=== PATIENT | female | born 1940 | race Caucasian/White ===

== ENCOUNTER → 2017-11-25 07:02 | Outpatient (CLI) | payer MEDICARE, BC, SELFPAY ==
[2017-11-25 07:58] LABS: Hemoglobin A1C 7.2 % (4.5-6.2)
[2017-11-25 08:42] LABS: ALT 28 U/L (12-78); AST 19 U/L (15-37); Albumin 3.5 g/dL (3.4-5.0); Alkaline Phosphatase 71 U/L (46-116); Anion Gap 7.4 mmol/L (3-11); BUN 20 mg/dL (7-18); Bilirubin, Total 0.3 mg/dL (0.2-1.0); CO2 30.6 mmol/L (21.0-32.0); CREATININE 1.23 mg/dL (0.55-1.02); Calcium 9.5 mg/dL (8.5-10.1); Chloride 102 mmol/L (98-107); Cholesterol 248 mg/dL (50-200); Estimated GFR 42.45 (mL/min/1.73m2); Glucose 120 mg/dL (70-100); HDL Cholesterol 51 mg/dL (40-60); LDL CHOLESTEROL 178 mg/dL (<100); Potassium 4.3 mmol/L (3.5-5.1); Sodium 140 mmol/L (136-145); Triglyceride 229 mg/dL (30-150)
[2017-11-25 09:02] LABS: Total Protein 6.7 g/dL (6.4-8.2)
== END ==
PROVIDERS: PCP Nurse Practitioner; Visit Provider Nurse Practitioner
DX: I10 Essential (primary) hypertension (principal); R73.01 Impaired fasting glucose; Z13.220 Encounter for screening for lipoid disorders
CPT/HCPCS: 36415; 80053; 80061; 83721; 83036

== ENCOUNTER 2018-11-19 07:49 | Outpatient (CLI) | payer MEDICARE, BC, SELFPAY ==
[2018-11-19 08:32] LABS: HCT 31.2 % (36.0-46.0); HGB 9.8 g/dL (12.0-15.5); Mean Corp. HGB Concentration 31.4 g/dL (32.0-36.0); Mean Corpuscular Hemoglobin 28.4 pg (27.0-33.0); Mean Corpuscular Volume 90.4 fL (80-95); Mean Platelet Volume 9.3 fL (8.0-11.0); Platelet Count 397 x1000/uL (130-400); RBC 3.45 m/cumm (4.00-5.20); White Blood Cell Count 4.03 k/cumm (4.4-10.8)
[2018-11-19 10:12] LABS: ALT 22 U/L (12-78); AST 23 U/L (15-37); Albumin 3.4 g/dL (3.4-5.0); Alkaline Phosphatase 61 U/L (46-116); Anion Gap 9.6 mmol/L (3-11); BUN 14 mg/dL (7-18); Bilirubin, Total 0.2 mg/dL (0.2-1.0); CO2 26.4 mmol/L (21.0-32.0); CREATININE 1.16 mg/dL (0.55-1.02); Calcium 9.5 mg/dL (8.5-10.1); Calculated LDL 147 mg/dL; Chloride 102 mmol/L (98-107); Cholesterol 234 mg/dL (50-200); Glucose 137 mg/dL (70-100); HDL Cholesterol 50 mg/dL (40-60); Potassium 4.5 mmol/L (3.5-5.1); Sodium 138 mmol/L (136-145); Total Protein 6.4 g/dL (6.4-8.2); Triglyceride 188 mg/dL (30-150)
[2018-11-19 10:19] LABS: COMMENT (LAB VIEW ONLY) 63.23 mg/dL; Microalb ug/mg Crea 7.1 ug/mg Cr
== END 2018-11-19 08:09 ==
PROVIDERS: PCP Nurse Practitioner; Visit Provider Nurse Practitioner
DX: E11.9 Type 2 diabetes mellitus without complications (principal); E78.5 Hyperlipidemia, unspecified; N18.3 Chronic kidney disease, stage 3 (moderate)
CPT/HCPCS: 36415; 80053; 80061; 83721; 85027; 82043; 82570

== ENCOUNTER 2020-06-01 03:28 | Outpatient (CLI) | payer MEDICARE, BC, SELFPAY ==
[2020-06-01 10:11] LABS: HCT 28.5 % (36.0-46.0); HGB 8.6 g/dL (11.2-15.7); MCH 24.8 pg (27.0-33.0); MCHC 30.2 % (32.0-36.0); MCV 82.1 fL (80-95); MPV 9.2 fL (8.0-11.0); Platelet Count 444 10^3/uL (130-400); RBC 3.47 10^6/uL (3.93-5.22); RDW 13.6 % (11.7-14.6); RDW-SD 40.8 fL
[2020-06-01 10:58] LABS: ALT 33 U/L (14-59); AST 30 U/L (15-37); Albumin 3.3 g/dL (3.4-5.0); Alkaline Phosphatase 68 U/L (46-116); Anion Gap 10.3 mmol/L (3-11); BUN 19 mg/dL (7-18); Bilirubin, Total 0.3 mg/dL (0.2-1.0); CO2 26.7 mmol/L (21.0-32.0); COMMENT (LAB VIEW ONLY) 112.92 mg/dL; CREATININE 1.1 mg/dL (0.55-1.02); Calcium 9.7 mg/dL (8.5-10.1); Calculated LDL 128 mg/dL (<100); Chloride 100 mmol/L (98-107); Cholesterol 213 mg/dL (<200); Estimated GFR 47.91 (mL/min/1.73m2); Glucose 154 mg/dL (74-106); HDL Cholesterol 48 mg/dL (40-60); Potassium 4.7 mmol/L (3.5-5.1); Sodium 137 mmol/L (136-145); Total Protein 6.8 g/dL (6.4-8.2); Triglyceride 189 mg/dL (<150)
== END 2020-06-01 03:29 | disposition home or self-care (01) ==
LOC: LBO 03:28
PROVIDERS: PCP Nurse Practitioner; Visit Provider Nurse Practitioner
DX: I10 Essential (primary) hypertension (principal); E11.9 Type 2 diabetes mellitus without complications; N18.30 Chronic kidney disease, stage 3 unspecified
CPT/HCPCS: 36415; 80053; 80061; 85027; 82043; 82570

== ENCOUNTER 2020-09-28 03:01 | Outpatient (CLI) | payer MEDICARE, BC, SELFPAY ==
--- NOTE | 2020-09-28 09:30 | DI.DEXA_ITS ---
Exam(s) XR DEXA BONE DENSITY W/WO ALEIDA EXAM: XR DEXA BONE DENSITY W/WO ALEIDA CLINICAL HISTORY: SCREENING FOR OSTEOPOROSIS IN POSTMENOPAUSAL WOMAN,Z78.0,Z13.820 TECHNIQUE: Routine DEXA evaluation of the lumbar spine, hip, or forearm. COMPARISON: Prior DEXA scan 2007 FINDINGS: Performed on a Inxero unit. Lateral image: No compression fracture evident. Lumbar Spine total T-score: -0.4 . Prior 2008 reading was -0.7 Hip total T-score:-0.7 . Prior 2008 reading was -0.6 Independent reading at the femoral neck yields a T-score of -1.1 Forearm total T-score: -2.1 IMPRESSION: Bone mineral density measures in the osteopenia range. Fracture risk is moderate. Note: Any spine fracture indicates 5x risk for subsequent spine fracture and 2x risk for subsequent h ip fracture. World Health Organization criteria for BMD interpretation classify patients: Normal...... T- Score at or above -1.0 Osteopenic... T- Score between -1.0 and -2.5 Osteoporosis... T-Score at or below -2.5
== END 2020-09-28 03:21 ==
PROVIDERS: PCP Nurse Practitioner; Visit Provider Nurse Practitioner
DX: Z13.820 Encounter for screening for osteoporosis (principal); R93.7 Abnormal findings on diagnostic imaging of other parts of musculoskeletal system; Z78.0 Asymptomatic menopausal state
CPT/HCPCS: 77080

== ENCOUNTER 2021-02-15 16:55 | Outpatient (REF) | payer MEDICARE, BC, SELFPAY ==
[2021-02-17 18:23] LABS: COVID-19 RT-PCR UVMMC Result Negative (Negative)
== END 2021-02-15 16:56 | disposition home or self-care (01) ==
LOC: LBN 16:55
PROVIDERS: Student in an Organized Health Care Education/Training Program; PCP Nurse Practitioner; Visit Provider Nurse Practitioner
DX: Z20.822 Contact with and (suspected) exposure to COVID-19 (principal); J32.9 Chronic sinusitis, unspecified; R09.81 Nasal congestion
CPT/HCPCS: U0003

== ENCOUNTER 2021-12-20 04:09 | Outpatient (CLI) | payer MEDICARE, BC, SELFPAY ==
[2021-12-20 08:14] LABS: Abs Immature Grans 0.02 10^3/uL (0.0-0.06); Absolute Basophil Count 0.07 10^3/uL (0.0-0.2); Absolute Eosinophil Count 0.38 10^3/uL (0.0-0.7); Absolute Lymphocyte Count 0.84 10^3/uL (1.2-3.4); Absolute Monocyte Count 0.54 10^3/uL (0.1-0.8); Absolute Neutrophil Count 4.31 10^3/uL (1.2-6.7); Basophils % 1.1; Eosinophils % 6.2; HCT 31.4 % (36.0-46.0); Immature Grans % 0.3; Lymphocytes % 13.6; MCH 30.9 pg (27.0-33.0); MCHC 31.8 % (32.0-36.0); MCV 97 fL (80-95); MPV 9.8 fL (8.0-11.0); Monocytes % 8.8; Platelet Count 453 10^3/uL (130-400); RBC 3.24 10^6/uL (3.93-5.22); RDW 12.6 % (11.7-14.6); RDW-SD 44.9 fL; WBC 6.16 10^3/uL (4.4-10.8)
[2021-12-20 09:12] LABS: ALT 24 U/L (14-59); AST 19 U/L (15-37); Albumin 3.2 g/dL (3.4-5.0); Alkaline Phosphatase 59 U/L (46-116); Anion Gap 8.2 mmol/L (3-11); BUN 19 mg/dL (7-18); Bilirubin, Total 0.2 mg/dL (0.2-1.0); CO2 28.8 mmol/L (21.0-32.0); CREATININE 1.2 mg/dL (0.55-1.02); Calcium 9.6 mg/dL (8.5-10.1); Calculated LDL 132 mg/dL (<100); Chloride 105 mmol/L (98-107); Cholesterol 222 mg/dL (<200); Estimated GFR 45.76 (mL/min/1.73m2); Glucose 133 mg/dL (74-106); HDL Cholesterol 58 mg/dL (40-60); Potassium 4.6 mmol/L (3.5-5.1); Sodium 142 mmol/L (136-145); Total Protein 6.7 g/dL (6.4-8.2); Triglyceride 163 mg/dL (<150)
== END 2021-12-20 04:10 | disposition home or self-care (01) ==
LOC: LBO 04:09
PROVIDERS: PCP Nurse Practitioner; Visit Provider Nurse Practitioner
DX: D64.9 Anemia, unspecified (principal); E78.5 Hyperlipidemia, unspecified; I10 Essential (primary) hypertension; J45.909 Unspecified asthma, uncomplicated; E11.9 Type 2 diabetes mellitus without complications
CPT/HCPCS: 36415; 80053; 80061; 85025

== ENCOUNTER 2022-07-04 02:29 | Outpatient (CLI) | payer MEDICARE, BC, SELFPAY ==
[2022-07-04 09:44] LABS: Abs Immature Grans 0.02 10^3/uL (0.0-0.06); Absolute Basophil Count 0.04 10^3/uL (0.0-0.2); Absolute Eosinophil Count 0.24 10^3/uL (0.0-0.7); Absolute Lymphocyte Count 1.11 10^3/uL (1.2-3.4); Absolute Monocyte Count 0.52 10^3/uL (0.1-0.8); Absolute Neutrophil Count 4.82 10^3/uL (1.2-6.7); Basophils % 0.6; Eosinophils % 3.6; HCT 35.2 % (36.0-46.0); HGB 11.3 g/dL (11.2-15.7); Immature Grans % 0.3; Lymphocytes % 16.4; MCH 30.9 pg (27.0-33.0); MCHC 32.1 % (32.0-36.0); MCV 96 fL (80-95); MPV 10.2 fL (8.0-11.0); Monocytes % 7.7; Neutrophils % 71.4; Platelet Count 355 10^3/uL (130-400); RBC 3.66 10^6/uL (3.93-5.22); RDW-SD 42.7 fL; WBC 6.75 10^3/uL (4.4-10.8)
[2022-07-04 10:09] LABS: COMMENT (LAB VIEW ONLY) 181.77 mg/dL; Microalb ug/mg Crea 25.3 ug/mg Cr
[2022-07-04 10:13] LABS: Hemoglobin A1C 6.3 % (<5.7)
[2022-07-04 10:24] LABS: ALT 23 U/L (14-59); AST 22 U/L (15-37); Albumin 3.5 g/dL (3.4-5.0); Alkaline Phosphatase 59 U/L (46-116); Anion Gap 10.2 mmol/L (3-11); BUN 28 mg/dL (7-18); Bilirubin, Total 0.2 mg/dL (0.2-1.0); CO2 26.8 mmol/L (21.0-32.0); CREATININE 1.3 mg/dL (0.55-1.02); Calcium 9.5 mg/dL (8.5-10.1); Calculated LDL 138 mg/dL (<100); Chloride 105 mmol/L (98-107); Cholesterol 222 mg/dL (<200); Estimated GFR 41.31 (mL/min/1.73m2); Ferritin 29 ng/mL (8-252); Glucose 138 mg/dL (74-106); HDL Cholesterol 59 mg/dL (40-60); Potassium 4.1 mmol/L (3.5-5.1); Sodium 142 mmol/L (136-145); Total Protein 6.8 g/dL (6.4-8.2); Triglyceride 129 mg/dL (<150)
== END 2022-07-04 02:30 | disposition home or self-care (01) ==
LOC: LBO 02:29
PROVIDERS: PCP Nurse Practitioner; Referring Provider Nurse Practitioner; Visit Provider Nurse Practitioner
DX: D64.9 Anemia, unspecified (principal); E11.9 Type 2 diabetes mellitus without complications; I10 Essential (primary) hypertension; J45.909 Unspecified asthma, uncomplicated
CPT/HCPCS: 36415; 80053; 80061; 82043; 82570; 82728; 83036; 85025

== ENCOUNTER 2022-11-14 18:59 | Emergency (ER) | payer MEDICARE, BC, SELFPAY ==
--- NOTE | 2022-11-14 19:00 | RT.EKG_ITS ---
APPROVED REPORT Exam: Resting ECG Reason for Exam: chest pain Patient Location: E HR:108 bpm ECG Measurements Heart Rate 108 AXIS NV 160 P 52 QRSd 136 QRS 33 QT 354 T -11 QTc 473 Conclusion Sinus tachycardia...rate> 99 Atrial premature complexes...SV complexes w/ short R-R intvls Right bundle branch block...QRSd>120, terminal axis(90,270) Physician: no stemi, RBBB
[2022-11-14 19:01] VITALS: BP 146/89; PULSE 119; RESP 18; TEMP 37.5; O2SAT 98
--- NOTE | 2022-11-14 19:22 | DI.CT_ITS ---
Exam(s) CT ABDOMEN PELVIS WO EXAM: CT ABDOMEN PELVIS WO CLINICAL HISTORY: lower abd pain. TECHNIQUE: Imaging Protocol: Axial computed tomography images with coronal and sagittal reformatted images were created and reviewed. Oral: / no COMPARISON: CT CHEST WITHOUT CONTRAST from 07/07/2012 FINDINGS: Exam limited by motion. ABDOMEN: Lung Bases: Large hiatal hernia. Evaluation of the lungs limited by respiratory motion. Liver: Normal density. Liver cysts, unchanged. No suspicious mass. Gallbladder and biliary tract: No radiodense calculus or dilation. Pancreas: Normal density, no abnormal calcifications or inflammatory process. Spleen: Normal. Kidneys: Normal size, contour and axis. No radiodense stones or obstructive uropathy. No masses seen. Adrenal glands: No masses seen. Lymph nodes: Within normal limits. Abdominal Aorta: Abdominal portion non-dilated. Atherosclerotic changes. PELVIS: Bladder: Symmetric distention, no gross wall thickening. Bowel: No obstruction. Prominent sigmoid diverticulosis. Surrounding inflammation in the distal sig moid and mild amount of surrounding fluid. No abscess. Appendix normal. Moderate quantity of stool . Peritoneal cavity: No ascites, collection or mesenteric inflammatory response. Reproductive organs: Retroverted uterus. Right-sided exophytic fundal fibroid. Within normal limits . Bones: Degenerative changes in the spine and hips. No compression fractures. IMPRESSION: Mild sigmoid diverticulitis. Small amount of adjacent fluid. RADIATION DOSE DELIVERED: 689.12mGy.cm Total DLP DATA REPOSITORY: All CT scans at this facility are submitted to the National Radiology Data Registry (NRDR) Dose Index Registry (DIR) with the [employer] (A[employer]). RADIATION OPTIMIZATION: All CT scans at this facility use at least one of these dose optimization te chniques: automated exposure control; mA and/or kV adjustment per patient size (includes targeted exa ms where dose is matched to clinical indication); or iterative reconstruction.
--- NOTE | 2022-11-14 19:26 | ED.GENADUL_ITS ---
Discharge Plan Disposition Patient Disposition: Home Condition: Stable Discharge Details Clinical Impression: Diverticulitis Primary Care Provider: Lalitha Daniels ED Provider: Christi Page Home Meds and New Rx's Prescriptions: New amoxicillin-pot clavulanate 875-125 mg tablet 1 tab PO TID Qty: 20 0RF Continued fluticasone propionate 50 mcg/actuation spray,suspension 2 spray intranasal DAILY Qty: 16 3RF Patient Comments: not using per pt Aveeno Moisturizing 1 % cream 1 applic topical TID PRN Qty: 206 3RF lisinopril-hydrochlorothiazide 20-12.5 mg tablet 1 tab PO DAILY Qty: 90 3RF Rx Instructions: TO CONTROL BP <130/80 acetaminophen 500 MG tablet 2 tab PO PRN PRN ascorbic acid (vitamin C) [Vitamin C] 500 MG tablet 500 mg PO BID Qty: 200 Rx Instructions: take with iron tablets to enhance absorption ferrous gluconate [Ferate] 240 mg (27 mg iron) tablet 240 mg PO DAILY Qty: 180 3RF Discharge Instructions Instructions: Diverticulitis (ED) Additional Instructions: It's a good idea to eat a lot of fiber?after?your symptoms have gotten better. Good sources of fiber include fruits, oats, beans, peas, and green leafy vegetables. You do?not?need to avoid seeds, nuts, popcorn, or other similar foods. You will be referred to surgery and after your infection has been treated, your doctor might recommend that you have a procedure called a colonoscopy clear liquids to stay well hydrated, advance as tolerated. Referrals: Graciela Hdz DO [OSTEOPATHIC DOCTOR] - Lalitha Daniels NP [Primary Care Provider] - Discharge Data Discharge Date/Time-TO BE ENTERED AT DEPARTURE: 11/14/22 21:47 Medical Decision Making 82-year-old female presents with lower abdominal pain has been experiencing some constipation she has a history of hypertension. Physical exam with tenderness on palpation especially on the left lower quadrant. Will obtain IV access give her 1 L of fluids routine labs including CBC CMP urinalysis will be obtained. I will also order CAT scan of the abdomen and pelvis with IV contrast she will continue to be hemodynamically monitored while awaiting studies. Medical Records Medical records reviewed: Yes I reviewed the patient's medical records. Lab Data Lab results reviewed: Yes I reviewed the patient's lab results. HPI General Mode of arrival: ambulatory . Date/Time Provider Initiated Documentation: 11/14/22 19:11 . Limitations to Documentation: no limitations . Information obtained by: patient . HPI Narrative: onset of lower abd pain today around 11:30 am, no nausea, has c/o constipation, took laxatives last night and prune juice today. 2 small hard stools, has hemorrhoids. no fever, no similar symptoms in the past. denies chest pain, shortness of breath or other symptoms Related Data Home Medications Medication Instructions Recorded Confirmed acetaminophen 500 mg tablet 2 tab PO PRN PRN 06/30/12 11/14/22 ascorbic acid (vitamin C) 500 mg 500 mg PO BID #200 tabs 06/20/15 11/14/22 tablet (Vitamin C) fluticasone propionate 50 2 spray intranasal DAILY #16 grams 02/15/21 11/14/22 mcg/actuation nasal spray,suspension colloidal oatmeal 1 % topical 1 applic topical TID PRN #206 grams 05/22/22 11/14/22 cream (Aveeno Moisturizing) lisinopril 20 1 tab PO DAILY #90 tabs 05/22/22 11/14/22 mg-hydrochlorothiazide 12.5 mg tablet ferrous gluconate 240 mg (27 mg 240 mg PO DAILY #180 tab-caps 09/30/22 11/14/22 iron) tablet (Ferate) amoxicillin 875 mg-potassium 1 tab PO TID #20 tabs 11/14/22 clavulanate 125 mg tablet Previous Rx's Medication Instructions Recorded fluticasone propionate 50 2 spray intranasal DAILY #16 grams 02/15/21 mcg/actuation nasal spray,suspension colloidal oatmeal 1 % topical 1 applic topical TID PRN #206 grams 05/22/22 cream (Aveeno Moisturizing) lisinopril 20 1 tab PO DAILY #90 tabs 05/22/22 mg-hydrochlorothiazide 12.5 mg tablet ferrous gluconate 240 mg (27 mg 240 mg PO DAILY #180 tab-caps 09/30/22 iron) tablet (Ferate) amoxicillin 875 mg-potassium 1 tab PO TID #20 tabs 11/14/22 clavulanate 125 mg tablet Allergies Allergy/AdvReac Type Severity Reaction Status Date / Time ranitidine AdvReac Intermediate Stomach Verified 11/14/22 19:05 trouble 05/16 TRIAL General Stated Complaint: Abd Prob SAEED: 3 Review of Systems All systems reviewed & are unremarkable except as noted in HPI and below PFSH All Active Problems (Updated 11/14/22 @ 21:13 by Christi Page NP) Diverticulitis (Chronic) Hx: recurrent pneumonia (Acute) Wheeze (Acute) Iron deficiency anemia (Acute 04/07/05) esophagitis/excedrin EGD 2005, 2006 INDEFINITE RX PPI; HEALED 2008; COLON 2005; persists 09/16, RESPONDS TO FE; Hb 7.0 not on Fe 07/2014 Anemia (Chronic) Anemia of chronic disorder (Acute 09/04/10) LOW EPO LEVEL 08/2010; mild CKD eGFR 44 Screening for osteoporosis (Acute) Post-menopausal (Acute) Allergic rhinitis (Acute 09/05/11) AM RHINORRHEA, CLOTRIMETON Type 2 diabetes mellitus without complication, without long-term current use of insulin (Acute 11/25/17) Esophagitis (Acute 10/05/05) FE DEF, EGD POS 12/11, 01/11, NEG 05/16 BUT STILL CHRONIC GASTRITIS, H PYLORI NEG; EGD KARTHIK; HEALED 2008; REC INDEFINITE PPI; 2005; recur anemia; 07/2014, H Pylori ab neg; EGD 05/2015 Castillo's metaplasia, 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 RML LESION; CT 07/07/12 ? SAME Medical History (Updated 11/14/22 @ 21:13 by Christi Page NP) Family history of ischemic heart disease (09/05/11) Family History Sister , age 70, non-hodgkins lymphoma Lymphoma Sister Hyperlipidemia Brother Heart disease Brother Heart disease Brother Heart disease cardiac stents Social History Smoking/Tobacco Use Status: Never Smoking risk assessment performed?: Yes Alcohol Intake: current Alcohol Intake frequency: holidays/special occasions only Drug use: Never Substance use type: does not use Housing: house Number of Children: 0 current occupation: retired What type of physical activity do you participate in: none Seatbelt use: always Drive intox or ride w/intox trailer driver: No Working smoke detector in home: Yes Fire extinguisher in home: No Carbon monox detector in home: No Do you feel safe at home: Yes Do you feel safe in your relationship?: Yes Exam Const General: cooperative, healthy appearing (younger than stated age), comfortable, no acute distress and not ill appearing Nutritional Appearance: average body habitus Orientation: alert, awake and oriented x3 HENWI Head: normal to inspection, normocephalic and atraumatic Mouth: oral mucosae normal Chest Chest: normal inspection of the chest Resp Effort & Inspection: normal respiratory effort Auscultation: clear to auscultation bilaterally Cardio Rate: tachycardic Rhythm: abnormal rhythm GI Inspection: distended Palpation: not firm, no guarding, tender and No ascites Auscultation: normal bowel sounds Skin General skin exam: no rashes or lesions noted Neuro General: patient alert, patient awake and patient oriented x3 Cognition: normal cognition Speech: speech normal Motor: muscle tone normal throughout Extrem General: normal to inspection, full ROM and no pedal edema Course Vital Signs Vital signs: Vital Signs Temperature 37.5 C 11/14/22 19:01 Pulse 119 H 11/14/22 19:01 Respiratory Rate 18 11/14/22 19:01 Blood Pressure 146/89 H 11/14/22 19:01 Pulse Oximetry 98 11/14/22 19:01 Temperature 37.5 C 11/14/22 19:01 Temperature Source Skin 11/14/22 19:01 Pulse 119 H 11/14/22 19:01 Respiratory Rate 18 11/14/22 19:01 Respiratory Effort Normal, Non-Labored 11/14/22 19:12 Blood Pressure 146/89 H 11/14/22 19:01 Blood Pressure Position Sitting 11/14/22 19:01 Pulse Oximetry 98 11/14/22 19:01 Oxygen Delivery Method Room Air 11/14/22 19:01 Oxygen Flow Rate 0 11/14/22 19:01 Pain Level 7 11/14/22 19:12
[2022-11-14 19:32] LABS: Abs Immature Grans 0.04 10^3/uL (0.0-0.06); Absolute Eosinophil Count 0.03 10^3/uL (0.0-0.7); Basophils % 0.3; Eosinophils % 0.2; HCT 32.1 % (36.0-46.0); HGB 10.7 g/dL (11.2-15.7); Immature Grans % 0.3; Lymphocytes % 4.7; MCH 29.9 pg (27.0-33.0); MCHC 33.3 % (32.0-36.0); MCV 90 fL (80-95); MPV 10.1 fL (8.0-11.0); Monocytes % 4.5; Platelet Count 369 10^3/uL (130-400); RBC 3.58 10^6/uL (3.93-5.22); RDW 11.4 % (11.7-14.6); RDW-SD 37.3 fL; WBC 14.99 10^3/uL (4.4-10.8)
[2022-11-14 19:35] LABS: Absolute Basophil Count 0.04 10^3/uL (0.0-0.2); Absolute Monocyte Count 0.67 10^3/uL (0.1-0.8); Absolute Neutrophil Count 13.49 10^3/uL (1.2-6.7)
[2022-11-14 19:45] LABS: Lipase 52 U/L (16-77)
[2022-11-14] MEDS: Normal Saline 1,000 ML 1000 ML IV (19:45)
[2022-11-14 19:49] LABS: ALT 17 U/L (14-59); AST 18 U/L (15-37); Albumin 3.6 g/dL (3.4-5.0); Alkaline Phosphatase 65 U/L (46-116); Anion Gap 12.8 mmol/L (3-11); BUN 36 mg/dL (7-18); Bilirubin, Total 0.3 mg/dL (0.2-1.0); CO2 24.2 mmol/L (21.0-32.0); CREATININE 1.5 mg/dL (0.55-1.02); Calcium 10.2 mg/dL (8.5-10.1); Chloride 100 mmol/L (98-107); Estimated GFR 34.79 (mL/min/1.73m2); Glucose 168 mg/dL (74-106); Potassium 4.5 mmol/L (3.5-5.1); Sodium 137 mmol/L (136-145)
[2022-11-14 19:56] LABS: Bacteria Few HPF (Negative); Bilirubin Negative (Negative); Blood Small (Negative); C & S Indicated? No/Sq. Contamination; Casts Negative LPF (Negative); Clarity Clear (Clear); Crystals Negative HPF (Negative); Epithelial Cells Moderate HPF (Negative); Glucose Negative (Negative); Ketones Trace mg/dL (Negative); Leukocyte Esterase Large (Negative); Mucus Negative (Negative); Nitrite Negative (Negative); RBC 0-2 HPF (0-2); Specific Gravity 1.025 (1.005-1.025); Urobilinogen 0.2 mg/dL (Up to 0.2); pH 5.5 (5-8)
--- NOTE | 2022-11-14 20:35 | DI.VRAD_ITS ---
PROCEDURE INFORMATION: Exam: CT Abdomen And Pelvis Without Contrast Exam date and time: 11/14/2022 8:10 PM Age: 82 years old Clinical indication: Abdominal pain; Localized; Lower; Additional info: Lower abd pain TECHNIQUE: Imaging protocol: Computed tomography of the abdomen and pelvis without contrast. Radiation optimization: All CT scans at this facility use at least one of these dose optimization techniques: automated exposure control; mA and/or kV adjustment per patient size (includes targeted exams where dose is matched to clinical indication); or iterative reconstruction. COMPARISON: No relevant prior studies available. FINDINGS: Diaphragm: There is a large hiatal hernia, incompletely imaged. Liver: There is a slightly mixed attenuation low-density right lobe hepatic mass measuring 3.4 cm. Gallbladder and bile ducts: Normal. No calcified stones. No ductal dilation. Pancreas: Normal. No ductal dilation. Spleen: Normal. No splenomegaly. Adrenal glands: Normal. No mass. Kidneys and ureters: Normal. No hydronephrosis. Stomach and bowel: There is moderate fecal retention pattern particularly at the rectosigmoid level. There is extensive diverticulosis. There is some mild abnormal soft tissue stranding at the distal sigmoid colonic level near the rectosigmoid junction. Appendix: No evidence of appendicitis. Intraperitoneal space: There is a small amount of free fluid in the deep pelvis. Vasculature: Severe atherosclerotic change present in the vasculature. Lymph nodes: Unremarkable. No enlarged lymph nodes. Urinary bladder: Unremarkable as visualized. Reproductive: There is an exophytic partially calcified right uterine fundal mass, presumed old fibroid. Bones/joints: Unremarkable. No acute fracture. Soft tissues: Unremarkable. IMPRESSION: Concern for early, acute diverticulitis. Minimal free fluid noted. Dictated and Authenticated by: Kizzy Fisher MD. Ordering:BRITTA Barraza MD
[2022-11-14] MEDS: PIPERACILLIN/TAZO 3.375 GM in Normal Saline 50 ML IVPB (20:57)
[2022-11-14 21:35] VITALS: BP 101/64; PULSE 89; RESP 16; TEMP 37.1; O2SAT 99
[2022-11-14] MEDS: Amox. 875/Clav. 125, 2 TABS/BTL 1 TAB PO (21:41)
== END 2022-11-14 21:47 | disposition home or self-care (01) ==
PROVIDERS: Emergency Provider Nurse Practitioner Acute Care; PCP Nurse Practitioner
DX: K57.32 Diverticulitis of large intestine without perforation or abscess without bleeding (principal); I45.19 Other right bundle-branch block; K44.9 Diaphragmatic hernia without obstruction or gangrene; I12.9 Hypertensive chronic kidney disease with stage 1 through stage 4 chronic kidney disease, or unspecified chronic kidney disease; E11.22 Type 2 diabetes mellitus with diabetic chronic kidney disease; N18.30 Chronic kidney disease, stage 3 unspecified; Z79.84 Long term (current) use of oral hypoglycemic drugs; Z79.899 Other long term (current) drug therapy
CPT/HCPCS: 80053; 83690; 93005; 96361; 96365; 99284; 74176; 81003; 81015; 85025; 93010; J2543

== ENCOUNTER 2023-03-24 12:04 | Outpatient (CLI) | payer MEDICARE, BC, SELFPAY ==
--- NOTE | 2023-03-24 11:40 | DI.RAD_ITS ---
Exam(s) XR HIP RT COMPLETE AP PELVIS EXAM: XR HIP RT COMPLETE AP PELVIS CLINICAL HISTORY: right hip pain. TECHNIQUE: 2D digital imaging was performed of the right hip. Two images were obtained. AP pelvis a nd lateral right hip views were obtained. COMPARISON: No exams were available for comparison FINDINGS: BONES: No acute fracture is present. No bony destructive lesion is seen. JOINTS: No dislocation present. There are marked degenerative changes seen in the right hip with loss of the joint space and osteophytes present. Subchondral sclerosis is seen. Marked degenerative tangela nges are also seen in the left hip. Sacroiliac joints show mild degenerative changes. SOFT TISSUE: Normal. IMPRESSION: Marked osteoarthritis of the right hip. DATA REPOSITORY: RADIATION DOSE DELIVERED:
== END 2023-03-24 12:05 | disposition home or self-care (01) ==
LOC: DIORS 12:05
PROVIDERS: PCP Nurse Practitioner; Referring Provider Nurse Practitioner; Visit Provider Physician Assistant
DX: M16.11 Unilateral primary osteoarthritis, right hip (principal)
CPT/HCPCS: 99213; 73502

== ENCOUNTER 2023-04-02 01:41 | Outpatient (CLI) | payer MEDICARE, BC, SELFPAY ==
[2023-04-02 13:23] LABS: Abs Immature Grans 0.02 10^3/uL (0.0-0.06); Absolute Basophil Count 0.06 10^3/uL (0.0-0.2); Absolute Eosinophil Count 0.25 10^3/uL (0.0-0.7); Absolute Monocyte Count 0.59 10^3/uL (0.1-0.8); Basophils % 0.9; Eosinophils % 3.8; HCT 24.8 % (36.0-46.0); HGB 7.1 g/dL (11.2-15.7); Immature Grans % 0.3; Lymphocytes % 16.6; MCH 22.3 pg (27.0-33.0); MCHC 28.6 % (32.0-36.0); MCV 78 fL (80-95); MPV 9.9 fL (8.0-11.0); Monocytes % 8.9; Neutrophils % 69.5; Platelet Count 500 10^3/uL (130-400); RBC 3.18 10^6/uL (3.93-5.22); RDW 14.8 % (11.7-14.6); WBC 6.62 10^3/uL (4.4-10.8)
[2023-04-02 13:43] LABS: Anion Gap 8.9 mmol/L (3-11); BUN 33 mg/dL (7-18); CO2 26.1 mmol/L (21.0-32.0); CREATININE 1.3 mg/dL (0.55-1.02); Calcium 10.3 mg/dL (8.5-10.1); Chloride 106 mmol/L (98-107); Estimated GFR 41.06 (mL/min/1.73m2); Glucose 112 mg/dL (74-106); Potassium 4.6 mmol/L (3.5-5.1); Sodium 141 mmol/L (136-145)
== END 2023-04-02 01:42 | disposition home or self-care (01) ==
LOC: LBO 01:42
PROVIDERS: PCP Nurse Practitioner; Referring Provider Nurse Practitioner; Visit Provider Nurse Practitioner
DX: N18.30 Chronic kidney disease, stage 3 unspecified (principal); D64.9 Anemia, unspecified
CPT/HCPCS: 36415; 80048; 85025

== ENCOUNTER 2023-04-21 09:35 | Outpatient (REF) | payer MEDICARE, BC, SELFPAY ==
[2023-04-21 15:12] LABS: Abs Immature Grans 0.02 10^3/uL (0.0-0.06); Absolute Basophil Count 0.05 10^3/uL (0.0-0.2); Absolute Eosinophil Count 0.18 10^3/uL (0.0-0.7); Absolute Lymphocyte Count 0.51 10^3/uL (1.2-3.4); Absolute Monocyte Count 0.41 10^3/uL (0.1-0.8); Absolute Neutrophil Count 4.21 10^3/uL (1.2-6.7); Basophils % 0.9; Eosinophils % 3.3; HCT 26.1 % (36.0-46.0); HGB 7.4 g/dL (11.2-15.7); Immature Grans % 0.4; Lymphocytes % 9.5; MCH 23.3 pg (27.0-33.0); MCHC 28.4 % (32.0-36.0); MCV 82 fL (80-95); MPV 10.6 fL (8.0-11.0); Monocytes % 7.6; Neutrophils % 78.3; Platelet Count 482 10^3/uL (130-400); RBC 3.17 10^6/uL (3.93-5.22); RDW 20.2 % (11.7-14.6); RDW-SD 58.9 fL; WBC 5.38 10^3/uL (4.4-10.8)
[2023-04-21 15:33] LABS: Anisocytosis 2+; Diff Comment RBC Morph Reviewed
[2023-04-21 15:34] LABS: Hypochromasia 1+; Poikilocytes 1+
[2023-04-21 15:40] LABS: Ferritin 52 ng/mL (8-252)
[2023-04-21 16:58] LABS: Total Iron Binding Capacity 390 ug/dL (250-450)
== END 2023-04-21 09:36 | disposition home or self-care (01) ==
LOC: LBN 09:35
PROVIDERS: PCP Nurse Practitioner; Visit Provider Nurse Practitioner Adult Health
DX: D64.9 Anemia, unspecified (principal); J45.909 Unspecified asthma, uncomplicated
CPT/HCPCS: 82728; 83550; 85025

== ENCOUNTER 2023-07-28 10:21 | Emergency (ER) | payer MEDICARE, BC, SELFPAY ==
[2023-07-28 10:26] VITALS: BP 174/93; PULSE 88; RESP 16; TEMP 37.1; O2SAT 100
--- NOTE | 2023-07-28 10:35 | W.ED.GENAD ---
Discharge Plan Disposition Patient Disposition: Home Condition: Stable Discharge Details Clinical Impression: Diabetic foot ulcer, Bunion of great toe of left foot, Arthritis of right knee Primary Care Provider: Lalitha Daniels ED Provider: Vadim Barraza Home Meds and New Rx's Prescriptions: Continued celecoxib [Celebrex] 100 mg capsule 100 mg PO DAILY Qty: 90 0RF Rx Instructions: take with food lisinopril-hydrochlorothiazide 20-12.5 mg tablet 1 tab PO DAILY Qty: 90 3RF Rx Instructions: TO CONTROL BP <130/80 Aveeno Moisturizing 1 % cream 1 applic topical TID PRN Qty: 206 3RF acetaminophen 500 MG tablet 2 tab PO PRN PRN ascorbic acid (vitamin C) [Vitamin C] 500 MG tablet 500 mg PO BID Qty: 200 Rx Instructions: take with iron tablets to enhance absorption ferrous gluconate [Ferate] 240 mg (27 mg iron) tablet 240 mg PO DAILY Qty: 180 3RF Discharge Instructions Instructions: Mupirocin (On the skin), Bunion (ED), Foot Care for People with Diabetes (ED), Diabetic Foot Ulcers (ED), Arthritis (ED) Additional Instructions: You were seen in the emergency department for the 2 different wounds of your left foot, the medial wound at the base of your big toe is a bunion. It does not appear infected. The wound by your pinky toe appears to be a diabetic foot ulceration. We took a culture of this wound and sent it to the lab, this should return within about 48 hours and if positive for bacteria somebody will contact you and start you on antibiotics, I do not think antibiotics are warranted at this time, we did provide you with a topical prescription strength antibiotic here in the emergency department to perform generalized wound care. Please follow-up with podiatry, we do not have wound care at this hospital but you may talk to your primary care provider about trying to get in with a wound care clinic for likely future foot ulcerations. The x-ray of your right knee shows arthritis of the right knee. The x-ray of your left foot showed no bone involvement from infection which is a complication of diabetic foot wound sometimes. Please follow-up with your primary care provider for these issues, please return to the ED for any severe increase in pain, drainage of pus from the area, unilateral leg swelling, fever, red streaking up the leg, inability to ambulate. Referrals: Lalitha Daniels NP [Primary Care Provider] - [facility] General Date/Time Provider Initiated Documentation: 07/28/23 10:35. HPI Narrative: 83 year-old female presents to ED today by POV/ambulating with a chief complaint of two open sores on her L foot, and R knee pain with onset chronically, noted for at least a week. Quality described as mildly painful area to base of L great toe, and lateral to pinky toe, endorses R knee pain in known arthritis, no radiation to complete numbness, known t2DM diagnosis, drainage of large amounts of pus, active bleeding, unilateral leg swelling. Patient does endorse possibly favoring her R leg due to her L foot sores. Severity is described as mild. Palliating factors include bandaids. Provoking factors include nothing specific. Events leading up to the incident/Associated Symptoms: Patient does have Podiatry follow-up on August 24. Patient not anticoagulated. Related Data Home Medications Medication Instructions Recorded Confirmed acetaminophen 500 mg tablet 2 tab PO PRN PRN 06/30/12 06/30/23 ascorbic acid (vitamin C) 500 mg 500 mg PO BID #200 tabs 06/20/15 06/30/23 tablet (Vitamin C) colloidal oatmeal 1 % topical 1 applic topical TID PRN #206 grams 05/22/22 06/30/23 cream (Aveeno Moisturizing) ferrous gluconate 240 mg (27 mg 240 mg PO DAILY #180 tab-caps 04/02/23 06/30/23 iron) tablet (Ferate) celecoxib 100 mg capsule (Celebrex) 100 mg PO DAILY #90 caps 06/30/23 06/30/23 lisinopril 20 1 tab PO DAILY #90 tabs 06/30/23 06/30/23 mg-hydrochlorothiazide 12.5 mg tablet Previous Rx's Medication Instructions Recorded colloidal oatmeal 1 % topical 1 applic topical TID PRN #206 grams 05/22/22 cream (Aveeno Moisturizing) ferrous gluconate 240 mg (27 mg 240 mg PO DAILY #180 tab-caps 04/02/23 iron) tablet (Ferate) celecoxib 100 mg capsule (Celebrex) 100 mg PO DAILY #90 caps 06/30/23 lisinopril 20 1 tab PO DAILY #90 tabs 06/30/23 mg-hydrochlorothiazide 12.5 mg tablet Allergies Allergy/AdvReac Type Severity Reaction Status Date / Time ranitidine AdvReac Intermediate Stomach Verified 07/28/23 10:30 trouble 05/16 TRIAL General Stated Complaint: Cellulitis SAEED: 3 Review of Systems All systems reviewed & are unremarkable except as noted in HPI and below Exam Narrative Exam Narrative: GENERAL APPEARANCE: Well-nourished, non-toxic, awake and alert, atraumatic, no acute distress. SKIN: Warm, pink, dry, intact, without rashes/lesions/ulcerations. L FOOT: Open 0.25cm sore over a left base of great toe medial bunion with some scant bleeding, does not appear overtly infected or erythematous, there is another area about 0.5cm lateral to the left pinky toe that includes dry skin and not ulcerated foot lesion with some questionable purulent scant material, sensation intact, able to weight-bear, no lymphadenitis up the calf, no unilateral calf swelling or skin changes. HEAD: Normocephalic, atraumatic, normal hair distribution for gender/age. EYES: Pupils PERRLA, EOMs intact without nystagmus, normal conjunctiva, no exudates on lids/lashes. ENT: Nares patent, no circumoral cyanosis, no facial swelling NECK: Supple, trachea midline, painless cervical ROM. LUNGS/CHEST: Non-labored respirations, normal A/P diameter, symmetrical expansion, no chest wall deformity HEART (CV/PV): Regular rate, L dorsalis pedis pulse 2+, no peripheral edema, no JVD. ABDOMEN: Soft, non-distended, no guarding. MSK: Normal ROM, no swelling/deformity to bilateral UEs or LEs, moving all extremities without weakness, no cyanosis, spine midline without tenderness, normal curvature. R KNEE: MacMurray negative, no crepitus, no [id number], no erythema, no pain with passive ROM, no significant swelling/deformity, anterior drawer/Alvino negative. NEURO: Mental Status AAOx4 - alert to person, place, time, events No facial droop, no forehead involvement. Motor: No focal weakness - strength 5/5 in bilateral UEs and LEs, proximal and distal, symmetric. Sensory: sensation intact to light touch globally. Gait normal: patient ambulated without ataxia into ED room. PSYCH: euthymic, cooperative, pleasant, appropriate speech Course Vital Signs Vital signs: Vital Signs Temperature 37.1 C 07/28/23 10:26 Pulse 88 07/28/23 10:26 Respiratory Rate 16 07/28/23 10:26 Blood Pressure 174/93 H 07/28/23 10:26 Pulse Oximetry 100 07/28/23 10:26 Temperature 37.1 C 07/28/23 10:26 Temperature Source Temporal Artery Scan 07/28/23 10:26 Pulse 88 07/28/23 10:26 Respiratory Rate 16 07/28/23 10:26 Blood Pressure 174/93 H 07/28/23 10:26 Pulse Oximetry 100 07/28/23 10:26 Oxygen Delivery Method Room Air 07/28/23 10:26 Oxygen Flow Rate 0 07/28/23 10:26 Medical Decision Making This dictation utilizes [id number] dictation software and may contain unedited grammatical errors. 83 y/o F presents to ED today with a chief complaint of L foot sores, R knee pain. Patient has not received a diabetes diagnosis, states her A1c is up always been good. Has pain around the bunion on her left medial foot and the skin ulcer lateral to the pinky toe, the lateral wound appears mildly purulent and was cultured. Patient endorses known arthritis and right knee pain, questions if she is favoring the right leg due to her left foot wounds. Patients' medical history: Arthritis, T2DM without use of insulin. Family and social history: noncontributory. Pertinent exam findings / vital signs include L FOOT: Open 0.25cm sore over a left base of great toe medial bunion with some scant bleeding, does not appear overtly infected or erythematous, there is another area about 0.5cm lateral to the left pinky toe that includes dry skin and not ulcerated foot lesion with some questionable purulent scant material, sensation intact, able to weight-bear, no lymphadenitis up the calf, no unilateral calf swelling or skin changes. Benign exam of R knee. Differential / pathologies of concern include diabetic foot wound, bunion, cellulitis, less likely osteomyelitis, arthritis of R knee, internal knee injury. Diagnostic studies of: -CBC, BMP, CRP/ESR, XR R Knee, XR L Foot. -CBC unremarkable -CRP mildly elevated, ESR WNL -XR L foot no evidence of osteo -XR R knee shows arthritis Interventions of: -Refer podiatry/encourage search for a wound care practice, wound dressings- await Cx for ABX. ED Course/Assessment/Plan: 83-year-old female presents to the ED with a likely diabetic foot ulcer at the lateral left foot and a bunion at the medial foot, has already established podiatry follow-up next month, she was unaware that she had diabetes and is likely a poor historian. I did culture the diabetic foot ulceration at the left lateral foot and will await antibiotic choice for this culture. I did provide topical mupirocin and have the patient's foot adequately bandaged. Counseled on likely arthritis of the right knee on radiographic evidence and likely favoring her right leg more than the left with her current foot ulcerations. Counseled the patient to return for any severe increase in symptoms, unilateral leg swelling, redness spreading up her leg, fever. Findings not consistent with osteomyelitis, vascular pathology, neurovascular compromise of the left foot, knee trauma. Disposition of arthritis of right knee, diabetic foot ulcer, bunion of great toe of left foot. Patient verbalized understanding of the plan and return to ED criteria and engaged in shared decision making. Medical Records Medical records reviewed: Yes I reviewed the patient's medical records. Imaging Data Radiologic Study: Attestation: I personally reviewed and interpreted this imaging study as follows: Imaging: X-Ray Radiologist's impression: EXAM: XR KNEE RT 3V AP,LAT,DAYO CLINICAL HISTORY: R knee pain. TECHNIQUE: 2D digital imaging was performed of the right knee. Three views obtained. AP, lateral and PA tunnel views were obtained. COMPARISON: CR RIGHT KNEE COMPLETE from 10/06/2007 FINDINGS: BONES: No acute fracture is present. No bony destructive lesion is seen. JOINTS: The knee is normally aligned. No joint effusion is seen. Calcification is seen in both the medial lateral femoral tibial joint consistent with chondrocalcinosis. This can be seen with CPPD arthropathy. There is narrowing of both the medial lateral femoral tibial joint spaces. SOFT TISSUE: Normal. IMPRESSION: 1. Arthritic changes seen in the knee. 2. No acute fracture or dislocation. Radiologic Study #2: Attestation: I personally reviewed and interpreted this imaging study as follows: Imaging: X-Ray Radiologist's impression: EXAM: XR FOOT LT COMPLETE CLINICAL HISTORY: L foot wounds, t2DM, ?osteo. TECHNIQUE: 2D digital imaging was performed of the left foot. Three images were obtained. AP, oblique and lateral views were obtained. COMPARISON: No exams were available for comparison FINDINGS: BONES: No acute fracture is present. No bony destructive lesion is seen. There is overlapping of the 1st and 2nd toes. JOINTS: No dislocation present. There is a hallux valgus deformity. There are marked degenerative changes seen at the 1st MTP joint. Degenerative changes are also seen at the interphalangeal joints of the toes particularly the DIP joint of the 2nd toe. SOFT TISSUE: There is a skin defect medial to the 1st MTP joint which may represent an ulcer. There is also soft tissue swelling lateral to the 5th MTP joint. IMPRESSION: 1. No radiographic evidence to suggest osteomyelitis. 2. Soft tissue swelling and defect seen adjacent to the 1st MTP joint and lateral to the 5th MTP joint. These areas may represent areas of ulceration. 3. Degenerative changes of the foot particularly at the 1st MTP joint. Lab Data Lab results reviewed: Yes I reviewed the patient's lab results. Labs: 07/28/23 10:50 Foot - Left Wound Culture - Pending 07/28/23 10:50 Foot - Left Gram Stain - Pending Laboratory Tests Range/Units 07/28/23 11:30 WBC (4.4-10.8) 10^3/uL 6.56 RBC (3.93-5.22) 10^6/uL 3.43 L Hgb (11.2-15.7) g/dL 9.5 L Hct (36.0-46.0) % 30.9 L MCV (80-95) fL 90 MCH (27.0-33.0) pg 27.7 MCHC (32.0-36.0) % 30.7 L RDW (11.7-14.6) % 13.2 Plt Count (130-400) 10^3/uL 419 H MPV (8.0-11.0) fL 9.9 Immature Gran % 0.3 Neutrophils % 80.1 Lymphocytes % 7.2 Monocytes % 8.5 Eosinophils % 3.4 Basophils % 0.5 Nucleated RBC % (0.0-0.3) % 0.0 Absolute Neutrophils (1.2-6.7) 10^3/uL 5.26 Absolute Lymphocytes (1.2-3.4) 10^3/uL 0.47 L Absolute Monocytes (0.1-0.8) 10^3/uL 0.56 Absolute Eosinophils (0.0-0.7) 10^3/uL 0.22 Absolute Basophils (0.0-0.2) 10^3/uL 0.03 ESR (0-30) mm/hr 24 Sodium (136-145) mmol/L 141 Potassium (3.5-5.1) mmol/L 4.7 Chloride (98-107) mmol/L 104 Carbon Dioxide (21.0-32.0) mmol/L 29.4 Anion Gap (3-11) mmol/L 7.6 BUN (7-18) mg/dL 22 H Creatinine (0.55-1.02) mg/dL 1.1 H Est GFR (CKD-EPI 2020) (mL/min/1.73m2) 50.17 Glucose (74-106) mg/dL 105 Calcium (8.5-10.1) mg/dL 10.2 H C-Reactive Protein (<or=0.5) mg/dL 1.31 H Quality:SDOH Health Related Social Needs: No Data to Display PFSH All Active Problems (Updated 07/28/23 @ 12:14 by LUIS MANUEL Crum) Arthritis of right knee (Acute) Bunion of great toe of left foot (Acute) Diabetic foot ulcer (Acute) 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) History of diverticulitis (Acute) Hx: recurrent pneumonia (Acute) Wheeze (Acute) Iron deficiency anemia (Acute 04/07/05) esophagitis/excedrin EGD 2005, 2006 INDEFINITE RX PPI; HEALED 2008; COLON 2005; persists 09/16, RESPONDS TO FE; Hb 7.0 not on Fe 07/2014 Anemia (Chronic) Anemia of chronic disorder (Acute 09/04/10) LOW EPO LEVEL 08/2010; mild CKD eGFR 44 Screening for osteoporosis (Acute) Post-menopausal (Acute) Allergic rhinitis (Acute 09/05/11) AM RHINORRHEA, CLOTRIMETON Type 2 diabetes mellitus without complication, without long-term current use of insulin (Acute 11/25/17) Esophagitis (Acute 10/05/05) FE DEF, EGD POS 12/11, 01/11, NEG 05/16 BUT STILL CHRONIC GASTRITIS, H PYLORI NEG; EGD KARTHIK; HEALED 2008; REC INDEFINITE PPI; 2005; recur anemia; 07/2014, H Pylori ab neg; EGD 05/2015 Castillo's metaplasia, 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 RML LESION; CT 07/07/12 ? SAME Medical History Family history of ischemic heart disease (09/05/11) Family History Sister , age 70, non-hodgkins lymphoma Lymphoma Sister Hyperlipidemia Brother Heart disease Brother Heart disease Brother Heart disease cardiac stents Social History Smoking/Tobacco Use Status: Never Smoking risk assessment performed?: Yes Alcohol Intake: current Alcohol Intake frequency: holidays/special occasions only Drug use: Never Substance use type: does not use Housing: house Number of Children: 0 current occupation: retired What type of physical activity do you participate in: none Seatbelt use: always Drive intox or ride w/intox lumber driver: No Working smoke detector in home: Yes Fire extinguisher in home: No Carbon monox detector in home: No Do you feel safe at home: Yes Do you feel safe in your relationship?: Yes
[2023-07-28 10:47] VITALS: BP 174/93; PULSE 88; RESP 16; TEMP 37.1; O2SAT 100
--- NOTE | 2023-07-28 11:34 | DI.RAD_ITS ---
Exam(s) XR KNEE RT 3V AP,LAT,DAYO EXAM: XR KNEE RT 3V AP,LAT,DAYO CLINICAL HISTORY: R knee pain. TECHNIQUE: 2D digital imaging was performed of the right knee. Three views obtained. AP, lateral an d PA tunnel views were obtained. COMPARISON: CR RIGHT KNEE COMPLETE from 10/06/2007 FINDINGS: BONES: No acute fracture is present. No bony destructive lesion is seen. JOINTS: The knee is normally aligned. No joint effusion is seen. Calcification is seen in both the me dial lateral femoral tibial joint consistent with chondrocalcinosis. This can be seen with CPPD arth ropathy. There is narrowing of both the medial lateral femoral tibial joint spaces. SOFT TISSUE: Normal. IMPRESSION: 1. Arthritic changes seen in the knee. 2. No acute fracture or dislocation. DATA REPOSITORY: RADIATION DOSE DELIVERED:
--- NOTE | 2023-07-28 11:34 | DI.RAD_ITS ---
Exam(s) XR FOOT LT COMPLETE EXAM: XR FOOT LT COMPLETE CLINICAL HISTORY: L foot wounds, t2DM, ?osteo. TECHNIQUE: 2D digital imaging was performed of the left foot. Three images were obtained. AP, obli que and lateral views were obtained. COMPARISON: No exams were available for comparison FINDINGS: BONES: No acute fracture is present. No bony destructive lesion is seen. There is overlapping of the 1st and 2nd toes. JOINTS: No dislocation present. There is a hallux valgus deformity. There are marked degenerative ch anges seen at the 1st MTP joint. Degenerative changes are also seen at the interphalangeal joints of the toes particularly the DIP joint of the 2nd toe. SOFT TISSUE: There is a skin defect medial to the 1st MTP joint which may represent an ulcer. There is also soft tissue swelling lateral to the 5th MTP joint. IMPRESSION: 1. No radiographic evidence to suggest osteomyelitis. 2. Soft tissue swelling and defect seen adjacent to the 1st MTP joint and lateral to the 5th MTP join t. These areas may represent areas of ulceration. 3. Degenerative changes of the foot particularly at the 1st MTP joint. DATA REPOSITORY: RADIATION DOSE DELIVERED:
[2023-07-28 11:42] LABS: Abs Immature Grans 0.02 10^3/uL (0.0-0.06); Absolute Basophil Count 0.03 10^3/uL (0.0-0.2); Absolute Eosinophil Count 0.22 10^3/uL (0.0-0.7); Absolute Lymphocyte Count 0.47 10^3/uL (1.2-3.4); Absolute Monocyte Count 0.56 10^3/uL (0.1-0.8); Absolute Neutrophil Count 5.26 10^3/uL (1.2-6.7); Basophils % 0.5; Eosinophils % 3.4; HCT 30.9 % (36.0-46.0); HGB 9.5 g/dL (11.2-15.7); Immature Grans % 0.3; Lymphocytes % 7.2; MCH 27.7 pg (27.0-33.0); MCHC 30.7 % (32.0-36.0); MCV 90 fL (80-95); MPV 9.9 fL (8.0-11.0); Monocytes % 8.5; Neutrophils % 80.1; Platelet Count 419 10^3/uL (130-400); RBC 3.43 10^6/uL (3.93-5.22); RDW 13.2 % (11.7-14.6); RDW-SD 42.9 fL; WBC 6.56 10^3/uL (4.4-10.8)
[2023-07-28 11:46] LABS: ESR 24 mm/hr (0-30)
[2023-07-28 11:57] LABS: Anion Gap 7.6 mmol/L (3-11); BUN 22 mg/dL (7-18); C-Reactive Protein 1.31 mg/dL (<or=0.5); CO2 29.4 mmol/L (21.0-32.0); CREATININE 1.1 mg/dL (0.55-1.02); Calcium 10.2 mg/dL (8.5-10.1); Chloride 104 mmol/L (98-107); Estimated GFR 50.17 (mL/min/1.73m2); Glucose 105 mg/dL (74-106); Potassium 4.7 mmol/L (3.5-5.1); Sodium 141 mmol/L (136-145)
[2023-07-28] MEDS: Mupirocin 2% Oint. 22 GM TUBE TP (13:03)
[2023-07-28 13:04] VITALS: BP 174/93; PULSE 88; RESP 16; TEMP 37.1; O2SAT 100
== END 2023-07-28 13:06 | disposition home or self-care (01) ==
PROVIDERS: Emergency Provider Physician Assistant; PCP Nurse Practitioner
DX: E11.621 Type 2 diabetes mellitus with foot ulcer (principal); L97.528 Non-pressure chronic ulcer of other part of left foot with other specified severity; M21.612 Bunion of left foot; M17.11 Unilateral primary osteoarthritis, right knee; I12.9 Hypertensive chronic kidney disease with stage 1 through stage 4 chronic kidney disease, or unspecified chronic kidney disease; E11.22 Type 2 diabetes mellitus with diabetic chronic kidney disease; N18.30 Chronic kidney disease, stage 3 unspecified; E78.5 Hyperlipidemia, unspecified
CPT/HCPCS: 73562; 80048; 85652; 99284; 73630; 85025; 86140; 87070; 87205

== ENCOUNTER → 2023-08-25 04:25 | Outpatient (CLI) | payer MEDICARE, BC, SELFPAY ==
--- NOTE | 2023-08-25 09:30 | DI.RAD_ITS ---
Exam(s) XR FOOT LT COMPLETE EXAM: XR FOOT LT COMPLETE CLINICAL HISTORY: Left foot pain,m79.672. TECHNIQUE: 2D digital imaging was performed. Three views. COMPARISON: CR XR FOOT LT COMPLETE from 07/28/2023 CR XR FOOT RT COMPLETE from 08/25/2023 FINDINGS: BONES: No acute fracture is present. Erosions are noted in not 1st metatarsal head and base of proxim al phalanx. Some adjacent calcifications are present. Findings could represent gout. JOINTS: Dislocation of the 5th toe dorsally and medially with respect to the 5th metatarsal head. Ad vanced degenerative changes of the 1st MTP joint. Hallux valgus. Overlap of the 2nd and 1st toes. SOFT TISSUE: Soft tissue swelling medial to 1st metatarsal head. Vascular calcifications. Calcificati on in plantar fascia IMPRESSION: Erosions of the 1st MTP joint adjacent soft tissue swelling calcifications, suspicious for gout. Dislocation at the 5th MTP joint. DATA REPOSITORY: RADIATION DOSE DELIVERED:
--- NOTE | 2023-08-25 09:48 | DI.RAD_ITS ---
Exam(s) XR FOOT RT COMPLETE EXAM: XR FOOT RT COMPLETE CLINICAL HISTORY: Right foot pain,m79.671. TECHNIQUE: 2D digital imaging was performed. Three views. COMPARISON: CR XR FOOT LT COMPLETE from 07/28/2023 FINDINGS: BONES: No acute fracture is present. Erosions in the 1st metatarsal head and adjacent soft tissue aminata cifications. The findings may represent gout. Accessory navicular. JOINTS: Moderate narrowing of the 1st MTP joint. Mild hallux valgus. Degenerative changes at the 1s t metatarsal sesamoids. Severe hammertoe deformity with the second toe overlapping the 1st toe. SOFT TISSUE: Normal. IMPRESSION: Erosions of 1st metatarsal head with adjacent calcification could indicate gout. Severe hammertoe de formity of the 2nd toe. DATA REPOSITORY: RADIATION DOSE DELIVERED:
== END ==
PROVIDERS: PCP Nurse Practitioner; Visit Provider Podiatrist
DX: M79.672 Pain in left foot (principal); M79.671 Pain in right foot
CPT/HCPCS: 73630

== ENCOUNTER 2023-08-26 09:43 | Emergency (ER) | payer MEDICARE, BC, SELFPAY ==
[2023-08-26] VITALS (22 sets, daily range): BP systolic 174–192; BP diastolic 68–84; PULSE 80–105; RESP 15–29; TEMP 36.7; O2SAT 99
--- NOTE | 2023-08-26 09:45 | RT.EKG_ITS ---
APPROVED REPORT Exam: Resting ECG Reason for Exam: LEFT BREAST PAIN Patient Location: E HR:98 bpm ECG Measurements Heart Rate 98 AXIS NE 149 P 67 QRSd 140 QRS 58 QT 371 T 8 QTc 471 Conclusion Sinus rhythm...normal P axis, V-rate 60- 99 Right bundle branch block...QRSd>120, terminal axis(90,270) sinus rhythm, PAC and PVC, RBBB t wave inversions V1-V3 with mild ST depressions
--- NOTE | 2023-08-26 10:06 | W.ED.GENAD ---
Discharge Plan Disposition Patient Disposition: Home Condition: Stable Discharge Details Clinical Impression: Multifocal pneumonia Primary Care Provider: Lalitha Daniels ED Provider: Vadim Barraza Home Meds and New Rx's Prescriptions: New amoxicillin-pot clavulanate 875-125 mg tablet 1 tab PO BID 5 Days Qty: 10 0RF azithromycin 250 mg tablet See Rx Instructions .ROUTE .COMPLEX Qty: 6 0RF Rx Instructions: For 250 mg dose pack: take 500 mg today (day 1), then 250 mg for 4 days (days 2-5) Continued celecoxib [Celebrex] 100 mg capsule 100 mg PO DAILY Qty: 90 0RF Rx Instructions: take with food lisinopril-hydrochlorothiazide 20-12.5 mg tablet 1 tab PO DAILY Qty: 90 3RF Rx Instructions: TO CONTROL BP <130/80 Aveeno Moisturizing 1 % cream 1 applic topical TID PRN Qty: 206 3RF acetaminophen 500 MG tablet 2 tab PO PRN PRN ascorbic acid (vitamin C) [Vitamin C] 500 MG tablet 500 mg PO BID Qty: 200 Rx Instructions: take with iron tablets to enhance absorption ferrous gluconate [Ferate] 240 mg (27 mg iron) tablet 240 mg PO DAILY Qty: 180 3RF Discharge Instructions Instructions: Amoxicillin/Clavulanate Potassium (By mouth), Azithromycin (By mouth), Pneumonia (ED) Additional Instructions: You were seen in the emergency department for your left-sided chest pain. There are some infiltrates concerning for possible infectious pneumonia in your left and right lung. The pain you are having below your left breast is also consistent with where 1 of these infiltrates is resting right up against the pleura of the lung. This is probably the source of your pain, we ruled out a pulmonary embolism by CT angiography of your chest, your EKG is similar to prior, and your cardiac markers are negative for any damage to the heart. These lung infiltrates need to be looked at and worked up by a Pulmonology practice for possible malignancy, as we discussed. I am providing referral to [facility] Pulmonology. Please take the antibiotics as directed, return to ED for worsening chest pain despite treatment, worsening shortness of breath, fevers, redness around the breast, nausea/vomiting. Referrals: [facility] Pulmonary Clinic [Provider Group] Lalitha Daniels, [employer]PERATOR [Primary Care Provider] - Discharge Data Discharge Date/Time-TO BE ENTERED AT DEPARTURE: 08/26/23 13:54 HPI General Date/Time Provider Initiated Documentation: 08/26/23 10:06. HPI Narrative: 83 year-old female presents to ED today by POV/ambulating with a chief complaint of L sided breast pain with onset upon awakening this morning- focal just under the nipple line in L anterior chest. Quality described as tenderness to touch, questions cough weeks ago, no radiation to near syncope, shortness of breath, nausea/vomiting, fever, diaphoresis, worsening with exertion. Severity is described as moderate. Palliating factors include nothing specific attempted. Provoking factors include nothing specific. Patient not anticoagulated. Related Data Home Medications Medication Instructions Recorded Confirmed acetaminophen 500 mg tablet 2 tab PO PRN PRN 06/30/12 08/26/23 ascorbic acid (vitamin C) 500 mg 500 mg PO BID #200 tabs 06/20/15 08/26/23 tablet (Vitamin C) colloidal oatmeal 1 % topical 1 applic topical TID PRN #206 grams 05/22/22 08/26/23 cream (Aveeno Moisturizing) ferrous gluconate 240 mg (27 mg 240 mg PO DAILY #180 tab-caps 04/02/23 08/26/23 iron) tablet (Ferate) celecoxib 100 mg capsule (Celebrex) 100 mg PO DAILY #90 caps 06/30/23 08/26/23 lisinopril 20 1 tab PO DAILY #90 tabs 06/30/23 08/26/23 mg-hydrochlorothiazide 12.5 mg tablet amoxicillin 875 mg-potassium 1 tab PO BID pneumonia 5 days #10 08/26/23 clavulanate 125 mg tablet tabs azithromycin 250 mg tablet See Rx Instructions PO .COMPLEX 08/26/23 pneumonia #6 tabs Previous Rx's Medication Instructions Recorded colloidal oatmeal 1 % topical 1 applic topical TID PRN #206 grams 05/22/22 cream (Aveeno Moisturizing) ferrous gluconate 240 mg (27 mg 240 mg PO DAILY #180 tab-caps 04/02/23 iron) tablet (Ferate) celecoxib 100 mg capsule (Celebrex) 100 mg PO DAILY #90 caps 06/30/23 lisinopril 20 1 tab PO DAILY #90 tabs 06/30/23 mg-hydrochlorothiazide 12.5 mg tablet amoxicillin 875 mg-potassium 1 tab PO BID pneumonia 5 days #10 08/26/23 clavulanate 125 mg tablet tabs azithromycin 250 mg tablet See Rx Instructions PO .COMPLEX 08/26/23 pneumonia #6 tabs Allergies Allergy/AdvReac Type Severity Reaction Status Date / Time ranitidine AdvReac Intermediate Stomach Verified 08/25/23 10:31 trouble 05/16 TRIAL General Stated Complaint: Chest Pain SAEED: 2 Review of Systems All systems reviewed & are unremarkable except as noted in HPI and below Exam Narrative Exam Narrative: GENERAL APPEARANCE: Well-nourished, non-toxic, awake and alert, atraumatic, no acute distress. SKIN: Warm, pink, dry, intact, without rashes/lesions/ulcerations. HEAD: Normocephalic, atraumatic, normal hair distribution for gender/age. EYES: Pupils PERRLA, EOMs intact without nystagmus, normal conjunctiva, no exudates on lids/lashes. ENT: Nares patent, no circumoral cyanosis, no facial swelling NECK: Supple, trachea midline, painless cervical ROM. LUNGS/CHEST: Lungs CTA bilaterally- no overt wheezing, mild diffuse rhonchi, no crackles at bases, non-labored respirations, normal A/P diameter, symmetrical expansion, no chest wall deformity, tenderness just below L breast, no erythema or discharge, non-fluctuant round mobile nodule- possible lymphadenopathy, not consistent with mastitis HEART (CV/PV): Regular rate and rhythm without murmur, no peripheral edema, no JVD. ABDOMEN: Soft, non-distended, no guarding, no tenderness. MSK: Normal ROM, no swelling/deformity to bilateral UEs or LEs, moving all extremities without weakness, no cyanosis, spine midline without tenderness, normal curvature. NEURO: Mental Status AAOx4 - alert to person, place, time, events No facial droop, no forehead involvement. Motor: No focal weakness - strength 5/5 in bilateral UEs and LEs, proximal and distal, symmetric. Sensory: sensation intact to light touch globally. Gait normal: patient ambulated without ataxia into ED room. PSYCH: euthymic, cooperative, pleasant, appropriate speech Course Vital Signs Vital signs: Vital Signs Temperature 36.7 C 08/26/23 09:51 Pulse 105 H 08/26/23 09:51 Respiratory Rate 16 08/26/23 09:51 Blood Pressure 174/68 H 08/26/23 09:51 Pulse Oximetry 99 08/26/23 09:51 Temperature 36.7 C 08/26/23 09:51 Temperature Source Oral 08/26/23 09:51 Pulse 105 H 08/26/23 09:51 Respiratory Rate 16 08/26/23 09:51 Respiratory Effort Normal, Non-Labored 08/26/23 09:52 Blood Pressure 174/68 H 08/26/23 09:51 Blood Pressure Position Sitting 08/26/23 09:51 Pulse Oximetry 99 08/26/23 09:51 Oxygen Delivery Method Room Air 08/26/23 09:51 Oxygen Flow Rate 0 08/26/23 09:51 Pain Level 6 08/26/23 09:51 Medical Decision Making This dictation utilizes [id number] dictation software and may contain unedited grammatical errors. 83 y/o F presents to ED today with a chief complaint of L sided breast/chest pain since waking up this morning, has history of PNA in the past- denies chest pain with exertion, denies hemoptysis, denies near syncope/diaphoresis. Does endorse later in visit having a cough possibly after discussion of results, non-productive Patients' medical history: History of recurrent pneumonia, anemia, T2DM, esophagitis, Castillo's esophagus, CKD, abnormal chest x-ray 2012. Family and social history: Family history of ischemic heart disease, lives independently. Pertinent exam findings / vital signs include LUNGS/CHEST: Lungs CTA bilaterally- no overt wheezing, mild diffuse rhonchi, no crackles at bases, non-labored respirations, normal A/P diameter, symmetrical expansion, no chest wall deformity, tenderness just below L breast, no erythema or discharge, non-fluctuant round mobile nodule- possible lymphadenopathy, not consistent with mastitis. Differential / pathologies of concern include fibrocystic breast disease, unlikely mastitis, PNA, PE, ACS. Diagnostic studies of: -CBC, D-dimer, BMP, troponin plus delta troponin, lipase, BNP, CTA Chest PE Study, EKG. -CBC shows no leukocytosis, baseline chronic anemia -D-dimer elevated > CTA negative for PE, question multifocal PNA vs malignancy -BMP benign -BNP 747, non-specific in CKD, no pulmonary edema on imaging -Serial troponins negative -EKG shows some deep S waves in lead I, no Q waves, inverted T's in lead III and some T wave inversions in the anterior leads, no STEMI Interventions of: -Outpatient Rx trial of relief for possible PNA, recommend pulmology follow-up for surveillance of possible malignancy. ED Course/Assessment/Plan: 83-year-old female presents with left breast/chest pain, she does have a tender lymph node in the area, there is some infiltrates abutting her pleura in this region with tenderness, PE study is negative, she may have a multifocal pneumonia with a history of recurrent pneumonias but the radiologist did phone me for results of possible malignancy, I am trialing dual antibiotic therapy for relief of pneumonia versus pulmonology follow-up for possible malignancy. I counseled the patient on negative cardiac workup but do recommend outpatient cardiology follow-up, strict return criteria for failure to improve, developing fever, worsening chest pain especially with red flag symptoms like diaphoresis, dizziness, near syncope, shortness of breath. Findings not consistent with PE, ACS, Hypoxic Respiratory Failure, Sepsis - consider multifocal PNA vs malignancy. Disposition of Multifocal Pneumonia. Patient verbalized understanding of the plan and return to ED criteria and engaged in shared decision making. Medical Records Medical records reviewed: Yes I reviewed the patient's medical records. Imaging Data Radiologic Study: Attestation: I personally reviewed and interpreted this imaging study as follows: Imaging: CT Scan Radiologist's impression: EXAM: CT CHEST PE CTA CLINICAL HISTORY: L chest pain, and L breast soft tissue pain +ddime. TECHNIQUE: Imaging Protocol: Axial CT angiography was performed with multi-slice acquisition and multi-planar reconstructions as well as axial, coronal and sagittal MIP reconstructions. CONTRAST MATERIAL: Intravenous: Omnipaque 350 Contrast volume:59 ml COMPARISON: CR CHEST 2 VIEWS PA,LAT from 01/15/[address] ABDOMEN PELVIS WO from 11/14/2022 FINDINGS: There is a large hiatal hernia. Pulmonary Arteries: No evidence of filling defect to suggest pulmonary emboli. Tracheobronchial tree: No mucous plugging. Bronchiectasis noted in lingula and anterior left lower lobe. Mediastinum and Jing: No dominant adenopathy or fluid collection. Pulmonary parenchyma: Focal area of consolidation laterally in the right upper lobe, extending to the level of the pleura. Additional infiltrate seen in the anteroinferior lingula, also abutting the pleura. Infiltrate versus atelectasis in the right middle lobe, adjacent to the fissure. Additional nodule seen anteriorly in the left upper lobe medially. Bilat scattered tiny nodules, nonspecific. Pleura: No effusion or pneumothorax. Biapical pleural thickening. Heart: The heart is mildly dilated. [id number] coronary artery calcifications are seen. Aorta: Thoracic aorta non-dilated. No dissection. Upper abdomen: No acute findings. Liver cysts and renal cysts again noted. Bones: No rib destruction. Degenerative changes and kyphosis. No compression fractures. Tubes, Catheters, and Lines: None Soft tissues: Unremarkable. IMPRESSION: No evidence of pulmonary embolism. Lateral areas of infiltration, greatest in the lateral left upper lobe. The findings may be infectious however malignancy is not excluded. Findings called to Vadim Barraza, ER provider. Lab Data Lab results reviewed: Yes I reviewed the patient's lab results. Labs: Laboratory Tests Range/Units 08/26/23 08/26/23 08/26/23 10:00 10:18 12:45 WBC (4.4-10.8) 10^3/uL 9.85 RBC (3.93-5.22) 10^6/uL 3.40 L Hgb (11.2-15.7) g/dL 9.5 L Hct (36.0-46.0) % 30.9 L MCV (80-95) fL 91 MCH (27.0-33.0) pg 27.9 MCHC (32.0-36.0) % 30.7 L RDW (11.7-14.6) % 12.4 Plt Count (130-400) 10^3/uL 455 H MPV (8.0-11.0) fL 10.0 Immature Gran % % 0.4 Neutrophils % % 82.7 Lymphocytes % % 8.0 Monocytes % % 7.2 Eosinophils % % 1.3 Basophils % % 0.4 Nucleated RBC % (0.0-0.3) % 0.0 Absolute Neutrophils (1.2-6.7) 10^3/uL 8.14 H Absolute Lymphocytes (1.2-3.4) 10^3/uL 0.79 L Absolute Monocytes (0.1-0.8) 10^3/uL 0.71 Absolute Eosinophils (0.0-0.7) 10^3/uL 0.13 Absolute Basophils (0.0-0.2) 10^3/uL 0.04 D-Dimer (<500) ng/mlFEU 1618 H Sodium (136-145) mmol/L 140 Potassium (3.5-5.1) mmol/L 3.9 Chloride (98-107) mmol/L 104 Carbon Dioxide (21.0-32.0) mmol/L 27.4 Anion Gap (3-11) mmol/L 8.6 BUN (7-18) mg/dL 21 H Creatinine (0.55-1.02) mg/dL 1.2 H Est GFR (CKD-EPI 2020) (mL/min/1.73m2) 45.19 Glucose (74-106) mg/dL 157 H Calcium (8.5-10.1) mg/dL 10.0 Troponin I (< or =60) ng/L < 50 Cancelled < 50 NT-Pro-B Natriuret Pep (<300) pg/mL 747 H Lipase (16-77) U/L 38 Quality:SDOH Health Related Social Needs: No Data to Display PFSH All Active Problems (Updated 08/28/23 @ 00:08 by ROXANA BUTLER) Multifocal pneumonia (Acute) Tear of skin of plantar aspect of left foot (Acute) Chronic ulcer of left foot (Acute) Gouty arthropathy with tophi (Acute) Gout (Chronic) 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) History of diverticulitis (Acute) Hx: recurrent pneumonia (Acute) Wheeze (Acute) Iron deficiency anemia (Acute 04/07/05) esophagitis/excedrin EGD 2005, 2006 INDEFINITE RX PPI; HEALED 2008; COLON 2005; persists 09/16, RESPONDS TO FE; Hb 7.0 not on Fe 07/2014 Anemia (Chronic) Anemia of chronic disorder (Acute 09/04/10) LOW EPO LEVEL 08/2010; mild CKD eGFR 44 Screening for osteoporosis (Acute) Post-menopausal (Acute) Allergic rhinitis (Acute 09/05/11) AM RHINORRHEA, CLOTRIMETON Type 2 diabetes mellitus without complication, without long-term current use of insulin (Acute 11/25/17) Esophagitis (Acute 10/05/05) FE DEF, EGD POS 12/11, 01/11, NEG 05/16 BUT STILL CHRONIC GASTRITIS, H PYLORI NEG; EGD KARTHIK; HEALED 2008; REC INDEFINITE PPI; 2005; recur anemia; 07/2014, H Pylori ab neg; EGD 05/2015 Castillo's metaplasia, 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 RML LESION; CT 07/07/12 ? SAME Medical History Family history of ischemic heart disease (09/05/11) Family History Sister , age 70, non-hodgkins lymphoma Lymphoma Sister Hyperlipidemia Brother Heart disease Brother Heart disease Brother Heart disease cardiac stents Social History Smoking/Tobacco Use Status: Never Smoking risk assessment performed?: Yes Alcohol Intake: current Alcohol Intake frequency: holidays/special occasions only Drug use: Never Substance use type: does not use Housing: house Number of Children: 0 current occupation: retired What type of physical activity do you participate in: none Seatbelt use: always Drive intox or ride w/intox local bulk driver: No Working smoke detector in home: Yes Fire extinguisher in home: No Carbon monox detector in home: No Do you feel safe at home: Yes Do you feel safe in your relationship?: Yes
[2023-08-26 10:24] LABS: Abs Immature Grans 0.04 10^3/uL (0.0-0.06); Absolute Basophil Count 0.04 10^3/uL (0.0-0.2); Absolute Eosinophil Count 0.13 10^3/uL (0.0-0.7); Absolute Lymphocyte Count 0.79 10^3/uL (1.2-3.4); Absolute Monocyte Count 0.71 10^3/uL (0.1-0.8); Absolute Neutrophil Count 8.14 10^3/uL (1.2-6.7); Basophils % 0.4 %; Eosinophils % 1.3 %; HCT 30.9 % (36.0-46.0); HGB 9.5 g/dL (11.2-15.7); Immature Grans % 0.4 %; MCH 27.9 pg (27.0-33.0); MCHC 30.7 % (32.0-36.0); MCV 91 fL (80-95); Monocytes % 7.2 %; Neutrophils % 82.7 %; Platelet Count 455 10^3/uL (130-400); RDW 12.4 % (11.7-14.6); RDW-SD 41.1 fL; WBC 9.85 10^3/uL (4.4-10.8)
[2023-08-26 10:41] LABS: Anion Gap 8.6 mmol/L (3-11); BUN 21 mg/dL (7-18); CO2 27.4 mmol/L (21.0-32.0); CREATININE 1.2 mg/dL (0.55-1.02); Chloride 104 mmol/L (98-107); Estimated GFR 45.19 (mL/min/1.73m2); Glucose 157 mg/dL (74-106); Lipase 38 U/L (16-77); NT-proBNP 747 pg/mL (<300); Potassium 3.9 mmol/L (3.5-5.1); Sodium 140 mmol/L (136-145); Troponin I < 50 ng/L (< or =60)
[2023-08-26 10:58] LABS: D-Dimer 1618 ng/mlFEU (<500)
--- NOTE | 2023-08-26 11:06 | DI.CT_ITS ---
Exam(s) CT CHEST PE CTA EXAM: CT CHEST PE CTA CLINICAL HISTORY: L chest pain, and L breast soft tissue pain +ddime. TECHNIQUE: Imaging Protocol: Axial CT angiography was performed with multi-slice acquisition and mu lti-planar reconstructions as well as axial, coronal and sagittal MIP reconstructions. CONTRAST MATERIAL: Intravenous: Omnipaque 350 Contrast volume:59 ml COMPARISON: CR CHEST 2 VIEWS PA,LAT from 01/15/[address] ABDOMEN PELVIS WO from 11/14/2022 FINDINGS: There is a large hiatal hernia. Pulmonary Arteries: No evidence of filling defect to suggest pulmonary emboli. Tracheobronchial tree: No mucous plugging. Bronchiectasis noted in lingula and anterior left lower l obe. Mediastinum and Jing: No dominant adenopathy or fluid collection. Pulmonary parenchyma: Focal area of consolidation laterally in the right upper lobe, extending to the level of the pleura. Additional infiltrate seen in the anteroinferior lingula, also abutting the pleura. Infiltrate versus atelectasis in the right middle lobe, adjacent to the fissure. Additional nodule seen anteriorly in the left upper lobe medially. Bilat scattered tiny nodules, nonspecific. Pleura: No effusion or pneumothorax. Biapical pleural thickening. Heart: The heart is mildly dilated. [id number] coronary artery calcifications are seen. Aorta: Thoracic aorta non-dilated. No dissection. Upper abdomen: No acute findings. Liver cysts and renal cysts again noted. Bones: No rib destruction. Degenerative changes and kyphosis. No compression fractures. Tubes, Catheters, and Lines: None Soft tissues: Unremarkable. IMPRESSION: No evidence of pulmonary embolism. Lateral areas of infiltration, greatest in the lateral left upper lobe. The findings may be infectio us however malignancy is not excluded. Findings called to Vadim Barraza, ER provider. RADIATION DOSE DELIVERED: 279.44mGy.cm Total DLP DATA REPOSITORY: All CT scans at this facility are submitted to the National Radiology Data Registry (NRDR) Dose Index Registry (DIR) with the [employer] (A[employer]). RADIATION OPTIMIZATION: All CT scans at this facility use at least one of these dose optimization te chniques: automated exposure control; mA and/or kV adjustment per patient size (includes targeted exa ms where dose is matched to clinical indication); or iterative reconstruction.
[2023-08-26] MEDS: Normal Saline Flush 10 ML SYR IVP (11:22)
[2023-08-26] MEDS: Omnipaque 350 MG/ML 100 ML BTL IJ (11:23)
[2023-08-26] MEDS: Normal Saline - Diluent 50 ML VIAL IV (11:24)
[2023-08-26] MEDS: cefTRIAXone 1 GM/50 ML BAG IVPB (12:23)
[2023-08-26] MEDS: AZITHROMYCIN 500 MG in Normal Saline 250 ML 250 MG IVPB (12:50)
[2023-08-26 13:13] LABS: Troponin I < 50 ng/L (< or =60)
--- NOTE | 2023-08-26 13:58 | NUR.NOTE ---
Referral sent to pulmonology for a malignancy work up in 2-3 weeks. Farzana.Nursing Note:
== END 2023-08-26 13:54 | disposition home or self-care (01) ==
PROVIDERS: Emergency Provider Physician Assistant; PCP Nurse Practitioner
DX: J18.9 Pneumonia, unspecified organism (principal); R07.9 Chest pain, unspecified
CPT/HCPCS: 36415; 71275; 80048; 83690; 93005; 96365; 96367; 99285; 83880; 84484; 85025; 85379; 93010; 99283; J0456; J0696; J3490

== ENCOUNTER → 2023-09-04 13:28 | Outpatient (BNVA) | payer MEDICARE, BC, SELFPAY | PROVIDERS: PCP Nurse Practitioner; Referring Provider Nurse Practitioner; Visit Provider Physician Assistant Surgical | DX: J18.9 Pneumonia, unspecified organism (principal); J47.9 Bronchiectasis, uncomplicated | CPT/HCPCS: 99215 ==

== ENCOUNTER → 2023-09-09 10:17 | Outpatient (BNVA) | payer MEDICARE, BC, SELFPAY | PROVIDERS: PCP Nurse Practitioner; Referring Provider Nurse Practitioner; Visit Provider Podiatrist | DX: M1A.9XX1 Chronic gout, unspecified, with tophus (tophi); S91.312A Laceration without foreign body, left foot, initial encounter; M21.612 Bunion of left foot; L97.522 Non-pressure chronic ulcer of other part of left foot with fat layer exposed; X58.XXXA Exposure to other specified factors, initial encounter | CPT/HCPCS: 11042 ==

== ENCOUNTER → 2023-09-25 13:18 | Outpatient (CLI) | payer MEDICARE, BC, SELFPAY ==
--- NOTE | 2023-09-25 11:15 | DI.CT_ITS ---
Exam(s) CT CHEST WO EXAM: CT CHEST WO CLINICAL HISTORY: follow up, MULTIFOCAL PNEUMONIA, BRONCHIECTASIS, J18.9, J47.9. TECHNIQUE: Imaging protocol: Axial computed tomography images were obtained and coronal and sagittal reformatted images were created and reviewed. COMPARISON: CT CT CHEST PE CTA from 08/26/2023 FINDINGS: Tracheobronchial tree: There is bronchiectasis present particularly in the left upper lobe and left l ingula. Pulmonary parenchyma: Calcified granulomas present. There is a multifocal infiltrate present. The a rosey in the lateral aspect of the left upper lobe is decreased in size compared to the prior examinati on. The infiltrate seen in the inferior aspect of the right upper lobe however shows slight progress ion compared to the prior examination. The lungs appear hyperinflated. Biapical scarring is again s een. Mediastinum and Jing: No dominant adenopathy or fluid collection. The esophagus is unremarkable.There is a large hernia present with a large component of the stomach above the hemidiaphragm. Thyroid gland: Unremarkable. Pleura: No effusion or pneumothorax. Heart: The heart is not dilated. Coronary artery calcifications are present. No pericardial effusion . Aorta: Thoracic aorta non-dilated. Atherosclerotic calcification is present. Upper abdomen: Upper abdominal findings appear stable. Lymph nodes: Within normal limits. Soft tissues: Unremarkable. Bones:Within normal limits for the patient's age. IMPRESSION: Multifocal opacities in the lungs. There has been some improvement in the left upper lobe but some p rogression is seen in the right upper lobe. This may represent pneumonia. Inflammatory process shou ld also be considered. Neoplasm cannot be excluded. RADIATION DOSE DELIVERED: 321.93mGy.cm Total DLP 321.93mGy.cm Total DLP DATA REPOSITORY: All CT scans at this facility are submitted to the National Radiology Data Registry (NRDR) Dose Index Registry (DIR) with the [employer] (ACR). RADIATION OPTIMIZATION: All CT scans at this facility use at least one of these dose optimization te chniques: automated exposure control; mA and/or kV adjustment per patient size (includes targeted exa ms where dose is matched to clinical indication); or iterative reconstruction.
== END ==
PROVIDERS: PCP Nurse Practitioner; Visit Provider Physician Assistant Surgical
DX: J18.9 Pneumonia, unspecified organism (principal); J47.9 Bronchiectasis, uncomplicated
CPT/HCPCS: 71250

== ENCOUNTER → 2023-09-30 14:43 | Outpatient (BNVA) | payer MEDICARE, BC, SELFPAY | PROVIDERS: PCP Nurse Practitioner; Referring Provider Nurse Practitioner; Visit Provider Podiatrist | DX: L97.522 Non-pressure chronic ulcer of other part of left foot with fat layer exposed (principal); M1A.9XX1 Chronic gout, unspecified, with tophus (tophi); M21.612 Bunion of left foot | CPT/HCPCS: 11042 ==

== ENCOUNTER → 2023-10-06 10:05 | Outpatient (BNVA) | payer MEDICARE, BC, SELFPAY | PROVIDERS: PCP Nurse Practitioner; Referring Provider Nurse Practitioner; Visit Provider Physician Assistant | DX: M16.11 Unilateral primary osteoarthritis, right hip (principal) | CPT/HCPCS: 20611; 99213; J1010 ==

== ENCOUNTER → 2023-10-07 10:55 | Outpatient (BNVA) | payer MEDICARE, BC, SELFPAY | PROVIDERS: PCP Nurse Practitioner; Referring Provider Nurse Practitioner; Visit Provider Podiatrist | DX: M21.612 Bunion of left foot (principal); L97.522 Non-pressure chronic ulcer of other part of left foot with fat layer exposed; M1A.9XX1 Chronic gout, unspecified, with tophus (tophi) | CPT/HCPCS: 11042 ==

== ENCOUNTER → 2023-10-14 01:32 | Outpatient (CLI) | payer MEDICARE, BC, SELFPAY ==
--- NOTE | 2023-10-14 10:23 | DI.RAD_ITS ---
Exam(s) XR CHEST 2V PA LATERAL EXAM: XR CHEST 2V PA LATERAL CLINICAL HISTORY: Pre op,ulcer lt foot, gouty arthropathy,m1a.9xxa,l97.522 TECHNIQUE: 2D digital imaging was performed. Two views. COMPARISON: CR CHEST 2 VIEWS PA,LAT from 01/15/[address] CHEST WO from 09/25/2023 FINDINGS: HEART: Normal size. Aorta: Not dilated. PULMONARY VASCULATURE: Normal. MEDIASTINUM: Moderate size hiatal hernia. LUNGS: Biapical scarring. Scarring seen laterally in the left upper lobe. No acute infiltrates. PLEURAL SPACE: No pleural effusion or pneumothorax. BONE:Unremarkable for age. SOFT TISSUES: Unremarkable. IMPRESSION: No acute abnormality. DATA REPOSITORY: RADIATION DOSE DELIVERED:
== END ==
PROVIDERS: PCP Nurse Practitioner; Visit Provider Podiatrist
DX: L97.522 Non-pressure chronic ulcer of other part of left foot with fat layer exposed (principal); M1A.9XX1 Chronic gout, unspecified, with tophus (tophi); Z01.818 Encounter for other preprocedural examination; M86.172 Other acute osteomyelitis, left ankle and foot
CPT/HCPCS: 36415; 80048; 80053; 84145; 85652; 87040; 96365; 99284; 71046; 73630; 83605; 84550; 85025; 86140; 87070; 87205; 99283; J0737

== ENCOUNTER 2023-10-14 14:22 | Outpatient (CLI) | payer MEDICARE, BC, SELFPAY ==
[2023-10-14 10:40] LABS: Abs Immature Grans 0.05 10^3/uL (0.0-0.06); Absolute Basophil Count 0.07 10^3/uL (0.0-0.2); Absolute Eosinophil Count 0.04 10^3/uL (0.0-0.7); Absolute Lymphocyte Count 0.65 10^3/uL (1.2-3.4); Basophils % 0.6 %; Eosinophils % 0.3 %; HCT 31.9 % (36.0-46.0); HGB 9.4 g/dL (11.2-15.7); Immature Grans % 0.4 %; Lymphocytes % 5.5 %; MCH 26.5 pg (27.0-33.0); MCHC 29.5 % (32.0-36.0); MCV 90 fL (80-95); MPV 9.9 fL (8.0-11.0); Monocytes % 9.7 %; Neutrophils % 83.5 %; Platelet Count 460 10^3/uL (130-400); RBC 3.55 10^6/uL (3.93-5.22); RDW 12.2 % (11.7-14.6); RDW-SD 40.4 fL
[2023-10-14 10:42] LABS: Absolute Monocyte Count 1.15 10^3/uL (0.1-0.8); Absolute Neutrophil Count 9.94 10^3/uL (1.2-6.7)
[2023-10-14 11:53] LABS: Anion Gap 7.7 mmol/L (3-11); BUN 23 mg/dL (7-18); CO2 29.3 mmol/L (21.0-32.0); CREATININE 1.2 mg/dL (0.55-1.02); Calcium 10.2 mg/dL (8.5-10.1); Chloride 104 mmol/L (98-107); Estimated GFR 45.19 (mL/min/1.73m2); Glucose 147 mg/dL (74-106); Potassium 3.8 mmol/L (3.5-5.1); Sodium 141 mmol/L (136-145); Uric Acid 7.5 mg/dL (2.6-6.0)
== END 2023-10-14 14:23 | disposition home or self-care (01) ==
LOC: LBO 14:23
PROVIDERS: PCP Nurse Practitioner; Visit Provider Podiatrist
DX: E79.0 Hyperuricemia without signs of inflammatory arthritis and tophaceous disease (principal); Z01.818 Encounter for other preprocedural examination; L97.522 Non-pressure chronic ulcer of other part of left foot with fat layer exposed
CPT/HCPCS: 36415; 80048; 84550; 85025

== ENCOUNTER 2023-10-14 14:42 | Emergency (ER) | payer MEDICARE, BC, SELFPAY ==
--- NOTE | 2023-10-14 14:45 | DI.RAD_ITS ---
Exam(s) XR FOOT LT COMPLETE EXAM: XR FOOT LT COMPLETE CLINICAL HISTORY: eval for osteo 5mtp. TECHNIQUE: 2D digital imaging was performed. Three views. COMPARISON: No exams were available for comparison FINDINGS: BONES: No acute fracture is present. There is a large soft tissue wound with air creating artifact o humberto the 5th metatarsal head. There is irregularity at the 5th metatarsal head, with erosion distally , consistent with osteomyelitis. JOINTS: There is dislocation of the 4th toe medially and dorsally. This was seen on the previous exa m. Degenerative changes are again noted at the 1st MTP joint. SOFT TISSUE: Calcification in the plantar fascia. 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 Overlying soft tissue ulcer. Dislocation at the 5th MTP joint appears chronic. DATA REPOSITORY: RADIATION DOSE DELIVERED:
[2023-10-14 14:48] VITALS: BP 122/58; PULSE 91; RESP 16; TEMP 36.5; O2SAT 96
[2023-10-14 15:21] LABS: Lactate 1.1 mmol/L (0.6-1.4)
[2023-10-14 15:22] LABS: Abs Immature Grans 0.04 10^3/uL (0.0-0.06); Absolute Basophil Count 0.04 10^3/uL (0.0-0.2); Absolute Eosinophil Count 0.03 10^3/uL (0.0-0.7); Absolute Lymphocyte Count 0.51 10^3/uL (1.2-3.4); Absolute Monocyte Count 0.97 10^3/uL (0.1-0.8); Absolute Neutrophil Count 8.58 10^3/uL (1.2-6.7); Basophils % 0.4 %; Eosinophils % 0.3 %; HCT 28.3 % (36.0-46.0); HGB 8.6 g/dL (11.2-15.7); Immature Grans % 0.4 %; MCH 26.8 pg (27.0-33.0); MCHC 30.4 % (32.0-36.0); MCV 88 fL (80-95); MPV 9.9 fL (8.0-11.0); Monocytes % 9.5 %; Neutrophils % 84.4 %; Platelet Count 428 10^3/uL (130-400); RBC 3.21 10^6/uL (3.93-5.22); RDW 12.2 % (11.7-14.6); RDW-SD 39.5 fL; WBC 10.17 10^3/uL (4.4-10.8)
[2023-10-14 15:26] LABS: ESR 41 mm/hr (0-30)
[2023-10-14 15:42] LABS: ALT 17 U/L (14-59); AST 16 U/L (15-37); Albumin 3.1 g/dL (3.4-5.0); Alkaline Phosphatase 82 U/L (46-116); BUN 26 mg/dL (7-18); C-Reactive Protein 6.31 mg/dL (<or=0.5); CREATININE 1.2 mg/dL (0.55-1.02); Calcium 9.8 mg/dL (8.5-10.1); Chloride 104 mmol/L (98-107); Estimated GFR 45.19 (mL/min/1.73m2); Glucose 122 mg/dL (74-106); Sodium 140 mmol/L (136-145); Total Protein 6.9 g/dL (6.4-8.2)
[2023-10-14 16:26] LABS: Procalcitonin < 0.1 ng/mL
--- NOTE | 2023-10-14 16:49 | ED.GENADUL_ITS ---
Discharge Plan Disposition Patient Disposition: Home Condition: Good Discharge Details Clinical Impression: Chronic ulcer of left foot, Foot osteomyelitis, left Primary Care Provider: Lalitha Daniels ED Provider: Vadim Rodriguez Home Meds and New Rx's Prescriptions: No Action lisinopril-hydrochlorothiazide 20-12.5 mg tablet 1 tab PO DAILY Qty: 90 3RF Rx Instructions: TO CONTROL BP <130/80 celecoxib [Celebrex] 100 mg capsule 100 mg PO DAILY Qty: 90 0RF Rx Instructions: take with food. Stop taking at least 5 days prior to bunion surgery on 10/20/23. doxycycline hyclate 100 mg capsule 100 mg PO DAILY Qty: 14 0RF Aveeno Moisturizing 1 % cream 1 applic topical TID PRN Qty: 206 3RF albuterol sulfate 90 mcg/actuation HFA aerosol inhaler 2 puff inhalation QID PRN (Reason: shortness of breath or wheezing) Qty: 8.5 0RF acetaminophen 500 MG tablet 2 tab PO PRN PRN ascorbic acid (vitamin C) [Vitamin C] 500 MG tablet 500 mg PO BID Qty: 200 Rx Instructions: take with iron tablets to enhance absorption ferrous gluconate [Ferate] 240 mg (27 mg iron) tablet 240 mg PO DAILY Qty: 180 3RF Discharge Instructions Additional Instructions: At this time you have a chronic ulcer on your foot that requires surgical management. You do have evidence of chronic osteomyelitis which is an infection in the bone. The surgeon has scheduled surgery for you tomorrow morning. Please arrive here at 9 AM. Please do not eat or drink anything after midnight tonight. If you notice any worsening of your symptoms, or any new symptoms such as vomiting, diarrhea, fever, chills, shortness of breath, chest pain, numbness, weakness, or fainting , please return immediately to the emergency department for reevaluation. Please follow up with your primary care provider as soon as possible for reassessment and reevaluation. As always, it was a pleasure participating in your medical care today. Referrals: Lalitha Daniels, ROSA MARIA [Primary Care Provider] - Natali Multani DPM [[facility] STAFF PHYSICIAN] - Discharge Data Discharge Date/Time-TO BE ENTERED AT DEPARTURE: 10/14/23 19:14 HPI General Date/Time Provider Initiated Documentation: 10/14/23 14:44 . HPI Narrative: This is a pleasant 83-year-old female with a past medical history of gout, type 2 diabetes, as well as chronic ulcers on her left foot. She was seen by podiatry today, Dr. Orozco, who had concern for her symptoms and notable worsening of her feet and was sent to the ER for further assessment potential surgical intervention tomorrow. Patient denies any recent fever or chills. She does admit to some drainage around the ulcers on her foot. She denies any new pain. Her no other complaints. She is currently receiving therapy for doxycycline for treatment of the infection/suspected underlying osteomyelitis. No other complaints at this time. No other modifying factors. Related Data Home Medications Medication Instructions Recorded Confirmed acetaminophen 500 mg tablet 2 tab PO PRN PRN 06/30/12 10/15/23 ascorbic acid (vitamin C) 500 mg 500 mg PO BID #200 tabs 06/20/15 10/15/23 tablet (Vitamin C) colloidal oatmeal 1 % topical 1 applic topical TID PRN #206 grams 05/22/22 10/15/23 cream (Aveeno Moisturizing) ferrous gluconate 240 mg (27 mg 240 mg PO DAILY #180 tab-caps 04/02/23 10/15/23 iron) tablet (Ferate) lisinopril 20 1 tab PO DAILY #90 tabs 06/30/23 10/15/23 mg-hydrochlorothiazide 12.5 mg tablet albuterol sulfate 90 mcg/actuation 2 puff inhalation QID PRN 09/04/23 10/15/23 aerosol inhaler shortness of breath or wheezing #8.5 grams celecoxib 100 mg capsule (Celebrex) 100 mg PO DAILY #90 caps 09/22/23 10/15/23 doxycycline hyclate 100 mg capsule 100 mg PO DAILY #14 caps 10/07/23 10/15/23 Previous Rx's Medication Instructions Recorded colloidal oatmeal 1 % topical 1 applic topical TID PRN #206 grams 05/22/22 cream (Aveeno Moisturizing) ferrous gluconate 240 mg (27 mg 240 mg PO DAILY #180 tab-caps 04/02/23 iron) tablet (Ferate) lisinopril 20 1 tab PO DAILY #90 tabs 06/30/23 mg-hydrochlorothiazide 12.5 mg tablet albuterol sulfate 90 mcg/actuation 2 puff inhalation QID PRN 09/04/23 aerosol inhaler shortness of breath or wheezing #8.5 grams celecoxib 100 mg capsule (Celebrex) 100 mg PO DAILY #90 caps 09/22/23 doxycycline hyclate 100 mg capsule 100 mg PO DAILY #14 caps 10/07/23 Allergies Allergy/AdvReac Type Severity Reaction Status Date / Time ranitidine AdvReac Intermediate Stomach Verified 10/15/23 10:49 trouble 05/16 TRIAL General Stated Complaint: Cellulitis SAEED: 3 Review of Systems All systems reviewed & are unremarkable except as noted in HPI and below Exam Narrative Exam Narrative: 1.Const: Well-nourished, Well-developed, appearing stated age 2.Eyes: PERRL, no conjunctival injection, and symmetrical lids. 3.ENT: Atraumatic external nose and ears. Moist MM. Neck: Symmetric, trachea midline, No thyromegaly. 4.CVS: +S1/S2, No murmurs or gallops. Peripheral pulses 2+ and equal in all extremities. Brisk capillary refill in all extremities. 5.RESP: Unlabored respiratory effort. Clear to auscultation bilaterally. No wheezes rales or rhonchi 6.GI: Soft, Nontender/Nondistended, No hepatosplenomegaly. No guarding or rebound. 7.MSK: Patient's left foot demonstrates notable ulcer on the left foot at the area of the fifth metatarsal phalangeal joint with some bony prominence, minimal erythema around this. There is evidence of iodine staining from today. It appears to be well cleaned out likely by podiatry staff. Very small medial ulcer as well. 8.Skin: Please see musculoskeletal 9.Neuro: security agent II-XII grossly intact. Sensation grossly intact, no focal neurologic deficits. 10.Psych: (AAO) x3. Appropriate mood and affect Course Vital Signs Vital signs: Vital Signs Temperature 36.5 C 10/14/23 14:48 Pulse 91 H 10/14/23 14:48 Respiratory Rate 16 10/14/23 14:48 Blood Pressure 122/58 L 10/14/23 14:48 Pulse Oximetry 96 10/14/23 14:48 Temperature 36.5 C 10/14/23 14:48 Temperature Source Temporal Artery Scan 10/14/23 14:48 Pulse 91 H 10/14/23 14:48 Respiratory Rate 16 10/14/23 14:48 Respiratory Effort Normal, Non-Labored 10/14/23 15:33 Blood Pressure 122/58 L 10/14/23 14:48 Pulse Oximetry 96 10/14/23 14:48 Lab/Test Results Lab/Test Results: 10/14/23 15:31 Foot - Left Wound Culture - Pending 10/14/23 15:31 Foot - Left Gram Stain - Pending 10/14/23 15:12 Blood Blood Culture - Pending 10/14/23 14:55 Blood Blood Culture - Pending Laboratory Tests Range/Units 10/14/23 15:12 WBC (4.4-10.8) 10^3/uL 10.17 RBC (3.93-5.22) 10^6/uL 3.21 L Hgb (11.2-15.7) g/dL 8.6 L Hct (36.0-46.0) % 28.3 L MCV (80-95) fL 88 MCH (27.0-33.0) pg 26.8 L MCHC (32.0-36.0) % 30.4 L RDW (11.7-14.6) % 12.2 Plt Count (130-400) 10^3/uL 428 H MPV (8.0-11.0) fL 9.9 Immature Gran % % 0.4 Neutrophils % % 84.4 Lymphocytes % % 5.0 Monocytes % % 9.5 Eosinophils % % 0.3 Basophils % % 0.4 Nucleated RBC % (0.0-0.3) % 0.0 Absolute Neutrophils (1.2-6.7) 10^3/uL 8.58 H Absolute Lymphocytes (1.2-3.4) 10^3/uL 0.51 L Absolute Monocytes (0.1-0.8) 10^3/uL 0.97 H Absolute Eosinophils (0.0-0.7) 10^3/uL 0.03 Absolute Basophils (0.0-0.2) 10^3/uL 0.04 ESR (0-30) mm/hr 41 H VBG Lactate (0.6-1.4) mmol/L 1.1 Sodium (136-145) mmol/L 140 Potassium (3.5-5.1) mmol/L 4.0 Chloride (98-107) mmol/L 104 Carbon Dioxide (21.0-32.0) mmol/L 27.0 Anion Gap (3-11) mmol/L 9.0 BUN (7-18) mg/dL 26 H Creatinine (0.55-1.02) mg/dL 1.2 H Est GFR (CKD-EPI 2020) (mL/min/1.73m2) 45.19 Glucose (74-106) mg/dL 122 H Calcium (8.5-10.1) mg/dL 9.8 Total Bilirubin (0.2-1.0) mg/dL 0.30 AST (15-37) U/L 16 ALT (14-59) U/L 17 Alkaline Phosphatase (46-116) U/L 82 C-Reactive Protein (<or=0.5) mg/dL 6.31 H Total Protein (6.4-8.2) g/dL 6.9 Albumin (3.4-5.0) g/dL 3.1 L Procalcitonin ng/mL < 0.1 Medical Decision Making This is a pleasant 83-year-old female with a past medical history of gout, type 2 diabetes, as well as chronic ulcers on her left foot. She was seen by podiatry today, Dr. Orozco, who had concern for her symptoms and notable worsening of her feet and was sent to the ER for further assessment potential surgical intervention tomorrow. Patient denies any recent fever or chills. She does admit to some drainage around the ulcers on her foot. She denies any new pain. Her no other complaints. She is currently receiving therapy for doxycycline for treatment of the infection/suspected underlying osteomyelitis. No other complaints at this time. No other modifying factors. Patient's left foot demonstrates notable ulcer on the left foot at the area of the fifth metatarsal phalangeal joint with some bony prominence, minimal erythema around this. There is evidence of iodine staining from today. It appears to be well cleaned out likely by podiatry staff. Very small medial ulcer as well. Exam demonstrates an otherwise well-appearing female, no significant tachycardia or hypotension. We will perform laboratory workup, of evaluate for stability, start clindamycin antibiotics and get an x-ray to rule out osteomyelitis. Will monitor closely and reassess. Patient shows no signs of sepsis or septic shock at this time. 6 PM Patient's laboratory workup has returned, no white count or bandemia. Minimal left shift. ESR and CRP are only mildly elevated, lactate normal, electrolytes normal. Procalcitonin less than 0.1. No evidence of sepsis or systemic infection. Cultures have been drawn. Local cultures have also been performed. X-ray does show evidence of osteomyelitis. Patient has received her antibio tics. I did contact the nursing nurse supervisor, at this time we do not have any pets that are available. They have discussed with me that there may potentially be beds late tonight or tomorrow morning. I contacted podiatry and discussed this with Dr. Butcher and at this time as the patient demonstrates notable stability, and no signs of systemic infectious component, we do feel that she is stable for discharge with prompt surgical management tomorrow morning. Patient has made it unequivocally clear that she would much prefer to go home tonight instead of being admitted. She has received her dose of IV clindamycin, repeat dosing will be tomorrow morning in the OR. Patient will be discharged home, n.p.o. after midnight and I been informed that she needs to arrive at the hospital between 830 and 9 AM for her surgery. Patient and family understand this. Patient will be discharged. Discussed red flags which to return. I have extensively reviewed the treatment plan and discharge instructions with the patient and their family. I have addressed all patient concerns at this time. The patient and family was made aware of what symptoms to monitor for that would warrant a return to the emergency department. Discussed the plan with the patient and family, they demonstrate verbal understanding and agreement with our assessment and plan at this time. The documentation in this chart was dictated using [employer] dictation software. Please excuse any dictation errors. FINDINGS: BONES: No acute fracture is present. There is a large soft tissue wound with air creating artifact over the 5th metatarsal head. There is irregularity at the 5th metatarsal head, with erosion distally, consistent with osteomyelitis. JOINTS: There is dislocation of the 4th toe medially and dorsally. This was seen on the previous exam. Degenerative changes are again noted at the 1st MTP joint. SOFT TISSUE: Calcification in the plantar fascia. 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 Overlying soft tissue ulcer. Dislocation at the 5th MTP joint appears chronic. 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) POCUS 10/06/23 History of diverticulitis (Acute) Hx: recurrent pneumonia (Acute) Wheeze (Acute) Iron deficiency anemia (Acute 04/07/05) esophagitis/excedrin EGD 2005, 2006 INDEFINITE RX PPI; HEALED 2008; COLON 2005; persists 09/16, RESPONDS TO FE; Hb 7.0 not on Fe 07/2014 Anemia (Chronic) Anemia of chronic disorder (Acute 09/04/10) LOW EPO LEVEL 08/2010; mild CKD eGFR 44 Screening for osteoporosis (Acute) Post-menopausal (Acute) Allergic rhinitis (Acute 09/05/11) AM RHINORRHEA, CLOTRIMETON Type 2 diabetes mellitus without complication, without long-term current use of insulin (Acute 11/25/17) Esophagitis (Acute 10/05/05) FE DEF, EGD POS 12/11, 01/11, NEG 05/16 BUT STILL CHRONIC GASTRITIS, H PYLORI NEG; EGD KARTHIK; HEALED 2008; REC INDEFINITE PPI; 2005; recur anemia; 07/2014, H Pylori ab neg; EGD 05/2015 Castillo's metaplasia, 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 RML LESION; CT 07/07/12 ? SAME Medical History Family history of ischemic heart disease (09/05/11) Family History Sister , age 70, non-hodgkins lymphoma Lymphoma Sister Hyperlipidemia Brother Heart disease Brother Heart disease Brother Heart disease cardiac stents Social History Smoking/Tobacco Use Status: Never Smoking risk assessment performed?: Yes Alcohol Intake: current Alcohol Intake frequency: holidays/special occasions only Drug use: Never Substance use type: does not use Household members: none Housing: house Number of Children: 0 Communication Needs: Hard of Hearing and Corrective Lenses current occupation: retired What is your relationship status?: never How often do you talk on the phone with friends or family?: three or more times per week How often do you get together with friends or relatives?: three or more times per week Panel score (0-1 are the most socially isolated patients): 1 What type of physical activity do you participate in: none Seatbelt use: always Drive intox or ride w/intox local company hazmat driver: No Working smoke detector in home: Yes Fire extinguisher in home: No Carbon monox detector in home: No Do you feel safe at home: Yes Do you feel safe in your relationship?: Yes
[2023-10-14] MEDS: CLINDAMYCIN 600 MG/50 ML BAG 100 MG IVPB (18:24)
== END 2023-10-14 19:14 | disposition home or self-care (01) ==
PROVIDERS: Emergency Provider Student in an Organized Health Care Education/Training Program; PCP Nurse Practitioner
DX: E11.621 Type 2 diabetes mellitus with foot ulcer (principal); M86.172 Other acute osteomyelitis, left ankle and foot; L97.522 Non-pressure chronic ulcer of other part of left foot with fat layer exposed
CPT/HCPCS: 36415; 80053; 84145; 85652; 87040; 96365; 99284; 73630; 83605; 85025; 86140; 87070; 87205; 99283; J0737

== ENCOUNTER 2023-10-14 15:41 | Outpatient (REF) | payer MEDICARE, BC, SELFPAY ==
--- NOTE | 2023-10-14 13:25 | BONE_PTH ---
PATIENT: Laurie Hall I LOC: [facility] U#:[id number] AGE/SX: 83/F ROOM: RE10/14/[address]: Natali Multani DPM : 1940 BED: DIS: 10/14/2023 SPEC #: [id number] RECD: 10/14/23 17:39 STATUS: LISSETTE REQ #: [id number] KEMI: 10/14/23 13:[address]: Natali Multani DEPT: Surgical Specimen RECD BY: Mery Fry ENTERED: 10/14/23 17:40 SP TYPE: Bone OTHR DR: Lalitha Daniels APRN Tissues: 1 - BONE BX/CURRETTE NOT PATH FRACTURE Procedures: GROSS AND MICRO LEVEL 3 Comments: [id number] (SUBMITTED IN 100% ETHANOL ADDED)
== END 2023-10-14 15:42 | disposition home or self-care (01) ==
LOC: LBN 15:41
PROVIDERS: PCP Nurse Practitioner; Visit Provider Podiatrist
DX: L97.522 Non-pressure chronic ulcer of other part of left foot with fat layer exposed (principal); M86.9 Osteomyelitis, unspecified; B96.89 Other specified bacterial agents as the cause of diseases classified elsewhere
CPT/HCPCS: 87077; 87070; 87075; 87186; 87205; 88304

== ENCOUNTER 2023-10-15 10:20 | Day surgery (SDC) | payer MEDICARE, BC, SELFPAY ==
[2023-10-15 10:29] VITALS: BP 165/85; PULSE 89; RESP 16; TEMP 36.2; O2SAT 97
--- NOTE | 2023-10-15 10:53 | ANES.PREOP_ITS ---
General Info Date of Service Date Performed: 10/15/23 Height: 5 ft 5 in Weight: 53 kg Body Mass Index (BMI): 19.4 Surgical Procedure: Operation Date: 10/15/23 12:55 Proposed Procedure Side Surgeon p Bunionectomy Left Natali Multani DPM s Resection Metatarsal Head Left Natali Multani DPM Meds Allergies and Home Medications Allergies Allergy/AdvReac Type Severity Reaction Status Date / Time ranitidine AdvReac Intermediate Stomach Verified 10/15/23 10:49 trouble 2 TRIAL Home Medication Medication Instructions Recorded acetaminophen 500 mg tablet 2 tab PO PRN PRN 06/30/12 ascorbic acid (vitamin C) 500 mg 500 mg PO BID #200 tabs 06/20/15 tablet (Vitamin C) colloidal oatmeal 1 % topical 1 applic topical TID PRN #206 grams 05/22/22 cream (Aveeno Moisturizing) ferrous gluconate 240 mg (27 mg 240 mg PO DAILY #180 tab-caps 04/02/23 iron) tablet (Ferate) lisinopril 20 1 tab PO DAILY #90 tabs 06/30/23 mg-hydrochlorothiazide 12.5 mg tablet albuterol sulfate 90 mcg/actuation 2 puff inhalation QID PRN 09/04/23 aerosol inhaler shortness of breath or wheezing #8.5 grams celecoxib 100 mg capsule (Celebrex) 100 mg PO DAILY #90 caps 09/22/23 doxycycline hyclate 100 mg capsule 100 mg PO DAILY #14 caps 10/07/23 Current Visit Medications: Current Medications Generic Name Dose Route Start Last Admin Trade Name Freq PRN Reason Stop Dose Admin Ringer's Solution 1,000 mls @ 30 mls/hr 10/15/23 06:00 IV 10/15/23 23:59 INFUSION HUMA Cefazolin Sodium/Dextrose 2 gm in 50 mls @ 100 mls/hr 10/15/23 06:00 Ancef Duplex IVPB 10/15/23 23:59 PREOP HUMA IV Miscellaneous Supplies 1 each 10/15/23 06:00 Iv Access IV 10/15/23 23:59 DIRECTED HUMA Sodium Chloride 0 ml 10/15/23 06:00 Normal Saline Flush 10 Ml Syr IV 10/15/23 23:59 PRN PRN Sodium Chloride 0 ml 10/15/23 06:00 Normal Saline 10 Ml Vial IJ 10/15/23 23:59 DIRECTED PRN Sterile Water 0 ml 10/15/23 06:00 Water,Injection,Sterile 10 Ml Vial IJ 10/15/23 23:59 DIRECTED PRN PFSH Active Problems Active Problems: Problem Status Onset Code Foot osteomyelitis, left M86.9 Chronic ulcer of left foot L97.529 Osteomyelitis of left foot M86.9 Cellulitis L03.90 Ulcer of left foot with fat layer exposed L97.522 Bronchiectasis J47.9 Tear of skin of plantar aspect of left foot S91.312A Chronic ulcer of left foot L97.529 Gouty arthropathy with tophi [id number].[id number] Gout M10.9 Degenerative joint disease of right hip M16.11 History of diverticulitis Z87.19 Hx: recurrent pneumonia Z87.01 Wheeze R06.2 Iron deficiency anemia 04/07/05 D50.9 Anemia D64.9 Anemia of chronic disorder 09/04/10 D63.8 Screening for osteoporosis Z13.820 Post-menopausal Z78.0 Allergic rhinitis 09/05/11 J30.9 Type 2 diabetes mellitus without complication, without long-term current use of insulin 11/25/17 E11.9 Esophagitis 10/05/05 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 06/20/15 K22.70 Chronic kidney disease, stage III (moderate) 09/05/11 N18.3 Unspecified essential hypertension 11/04/92 I10 Hearing loss 07/31/12 H91.90 Onychomycosis 07/19/16 B35.1 Osteoarthritis of finger of right hand 10/17/15 M19.041 Statin declined Z53.20 Other and unspecified hyperlipidemia 04/06/92 E78.5 Standard chest x-ray abnormal 09/05/11 R93.89 Medical History Medical History Family history of ischemic heart disease (09/05/11) Tobacco Smoking/Tobacco Use Status: Never Alcohol Alcohol Intake: current Alcohol intake frequency: holidays/special occasions only Substance Use Substance use: Never Substance use type: does not use Vital Signs and Lab Results Vital Signs Most Recent Vital Signs in EMR: Most Recent Vital Signs Temp Pulse Resp BP Pulse Ox 36.2 C L 89 16 165/85 H 97 10/15/23 10:29 10/15/23 10:29 10/15/23 10:29 10/15/23 10:29 10/15/23 10:29 Lab Results Blood Type / Crossmatch: No Data to Display Complete Blood Count: White Blood Count 10.17 10^3/uL (4.4-10.8) 10/14/23 15:12 Red Blood Count 3.21 10^6/uL (3.93-5.22) L 10/14/23 15:12 Hemoglobin 8.6 g/dL (11.2-15.7) L 10/14/23 15:12 Hematocrit 28.3 % (36.0-46.0) L 10/14/23 15:12 Platelet Count 428 10^3/uL (130-400) H 10/14/23 15:12 Venous Blood Lactate 1.1 mmol/L (0.6-1.4) 10/14/23 15:12 Complete Metabolic Panel: Sodium 140 mmol/L (136-145) 10/14/23 15:12 Potassium 4.0 mmol/L (3.5-5.1) 10/14/23 15:12 Chloride 104 mmol/L (98-107) 10/14/23 15:12 Carbon Dioxide 27.0 mmol/L (21.0-32.0) 10/14/23 15:12 BUN 26 mg/dL (7-18) H 10/14/23 15:12 Creatinine 1.2 mg/dL (0.55-1.02) H 10/14/23 15:12 Est GFR (CKD-EPI 2020) 45.19 (mL/min/1.73m2) 10/14/23 15:12 Calcium 9.8 mg/dL (8.5-10.1) 10/14/23 15:12 Albumin 3.1 g/dL (3.4-5.0) L 10/14/23 15:12 Glucose 122 mg/dL (74-106) H 10/14/23 15:12 C-Reactive Protein 6.31 mg/dL (<or=0.5) H 10/14/23 15:12 Liver Function Panel: Alanine Aminotransferase (ALT/SGPT) 17 U/L (14-59) 10/14/23 15: 12 Aspartate Amino Transf (AST/SGOT) 16 U/L (15-37) 10/14/23 15:12 Coagulation Panel: No Data to Display Cardiac Panel: No Data to Display Arterial Blood Gas: No Data to Display Venous Blood Gas: No Data to Display Pancreas Panel: No Data to Display Thyroid Panel: No Data to Display Infectious Disease: No Data to Display Blood Cultures: No Data to Display Toxicology Panel: No Data to Display Imaging and Studies Imaging and Studies Study information below may be from another EMR and interpreted by another provider. Please see original notes in EMR for more complete details. EKG Summary: 08/26/23 Conclusion Sinus rhythm...normal P axis, V-rate 60- 99 Right bundle branch block...QRSd>120, terminal axis(90,270) sinus rhythm, PAC and PVC, RBBB t wave inversions V1-V3 with mild ST depressions I have reviewed and interpreted ECG and agree with software generated interpretation. Electronically signed by: <Electronically signed by Latanya Chang M.D. in [place]> 08/28/23 0831 Anesthesia Assessment and Plan Anesthesia History Personal History: No History of General Anesthesia Family History: No Family History of Anesthesia Complications Exercise Tolerance Exercise Tolerance: Metabolic Equivalents<4 Pertinent Negatives Pertinent Negatives: No Symptoms of GERD, No Major Cardiovascular Symptoms or Complaints, No Major Pulmonary Symptoms or Complaints and No History of CVA/TIA Cardiac & Pulmonary Exam Cardiac Exam: Normal S1/S2 Heart Sounds Pulmonary Exam: Clear Bilateral Breath Sounds Implantable Cardiac Device Does patient have a Pacemaker or an ICD?: No Airway Exam Known Difficult Airway: No Mallampati Class: 2 Mouth Opening: Normal (> 3cm) Thyromental Distance: Less than 3 cm Neck Range of Motion: Full ROM Neck Circumference: Normal Teeth Condition: Removable Dentures/Plates Upper, Removable Dentures/Plates Lower and Edentulous ASA Classification ASA Score: ASA 3 Emergency Case?: No NPO Status NPO Status: NPO Clears >2 hours, Solids >8 hours Anesthesia Plan Resuscitation Status: Full Code Anesthesia Technique: General Anesthesia Airway Planned: Natural Airway Monitors Used: Standard Monitors
[2023-10-15] MEDS: Lactated Ringers 1,000 ML 30 ML IV (11:15)
[2023-10-15 11:44] VITALS: BMI 19.4
[2023-10-15] MEDS: ceFAZolin 2 GM/50 ML BAG IVPB (12:18)
[2023-10-15] MEDS: Lidocaine 1% Pres-Free 30 ML VIAL (12:30)
--- NOTE | 2023-10-15 12:45 | BONE_PTH ---
PATIENT: Laurie Hall I LOC: [facility] U#:[id number] AGE/SX: 83/F ROOM: RE10/15/[address]: Natali Multani DPM : 1940 BED: DIS: 10/15/2023 SPEC #: [id number] RECD: 10/15/23 18:03 STATUS: LISSETTE REQ #: [id number] KEMI: 10/15/23 12:[address]: Natali Multani DEPT: Surgical Specimen RECD BY: Mery Fry ENTERED: 10/15/23 18:08 SP TYPE: Bone OTHR DR: Lalitha Daniels APRN [facility] Tesfaye Bond Tissues: 1 - BONE BX/CURRETTE NOT PATH FRACTURE 2 - BONE BX/CURRETTE NOT PATH FRACTURE 3 - BONE BX/CURRETTE NOT PATH FRACTURE 4 - BONE BX/CURRETTE NOT PATH FRACTURE 5 - AMPUTATION FINGERS/TOES(NOT TRAUMA) Procedures: GROSS AND MICRO LEVEL 4 GROSS AND MICRO LEVEL 5 DECALCIFICATION Comments: [id number]
[2023-10-15] MEDS: Bupivacaine 0.5% Pres-Free 30 ML VIAL (13:30)
[2023-10-15 13:37] VITALS: BP 112/55; PULSE 60; RESP 16; TEMP 36.2; O2SAT 95
--- NOTE | 2023-10-15 13:47 | W.PM.DSUDISC ---
Date of service: 10/15/23 Time of Service: 12:00 Discharge Plan Disposition Patient Disposition: Home Condition: Stable Discharge Details Attending Provider: Natali Multani Primary Care Provider: Lalitha Daniels Home Meds and New Rx's Prescriptions: No Action lisinopril-hydrochlorothiazide 20-12.5 mg tablet 1 tab PO DAILY Qty: 90 3RF Rx Instructions: TO CONTROL BP <130/80 celecoxib [Celebrex] 100 mg capsule 100 mg PO DAILY Qty: 90 0RF Rx Instructions: take with food. Stop taking at least 5 days prior to bunion surgery on 10/20/23. doxycycline hyclate 100 mg capsule 100 mg PO DAILY Qty: 14 0RF Aveeno Moisturizing 1 % cream 1 applic topical TID PRN Qty: 206 3RF albuterol sulfate 90 mcg/actuation HFA aerosol inhaler 2 puff inhalation QID PRN (Reason: shortness of breath or wheezing) Qty: 8.5 0RF acetaminophen 500 MG tablet 2 tab PO PRN PRN ascorbic acid (vitamin C) [Vitamin C] 500 MG tablet 500 mg PO BID Qty: 200 Rx Instructions: take with iron tablets to enhance absorption ferrous gluconate [Ferate] 240 mg (27 mg iron) tablet 240 mg PO DAILY Qty: 180 3RF Discharge Instructions Additional Instructions: Patient to keep the dressings clean dry and intact. Stay nonweightbearing to the left foot. Use crutches or knee scooter as necessary. Please keep your surgical shoe on. Do not let the dressings get wet. Apply ice behind the ankle and behind the knee for 10 minutes on 20 minutes off as much as possible. You will be sent pain medication to take pills if you have pain. He may loosen the outer layer of dressings if you have severe pain to the foot. Please call us if you have any nausea vomiting chills fever or diarrhea. Please follow-up in office within 7 days Stand Alone Forms: Podiatry Instructions-DSU Equipment/Supplies: Non-Weight Bearing Crutches Activity:: Elevate Remove Dressings/Wound Care:: Do Not Remove Shower/Bathe:: Cover Diet:: As Tolerated Discharge Orders Discharge Orders: Discharge Order (Routine); Ordered 10/15/23 Ordered By: Natali Multani DS: Diagnosis Discharge Diagnosis (1) Osteomyelitis of left foot: Status: Acute (2) Chronic ulcer of left foot: Status: Acute (3) Foot osteomyelitis, left: Status: Acute (4) Cellulitis: Status: Acute (5) Gouty arthropathy with tophi: Status: Acute (6) Gout: Status: Chronic (7) Bunion of great toe of left foot: Status: Inactive
--- NOTE | 2023-10-15 13:50 | ROE_ITS ---
Date of service: 10/15/23 Time of Service: 12:00 Operative Note Operative Note DATE OF PROCEDURE: 10/15/23 PRE-OP DIAGNOSIS: Full-thickness ulcer/cellulitis secondary to gout left first metatarsophalangeal joint Ulcer with osteomyelitis fifth metatarsal, left foot POST-OP DIAGNOSIS: same PROCEDURE: Bunionectomy with medial eminence resection/arthrotomy, left foot Partial fifth ray amputation, left foot SURGEON: Natali Multani Refer to Anesthesia Record ESTIMATED BLOOD LOSS: 5 PATHOLOGY: other (Bone first metatarsal with margins, Bone fifth metatarsal with the margins) TOURNIQUET TIME: 52 COMPLICATIONS: None Patient was transported to: same day Patient's condition: stable Indications: This is an 83-year-old female patient with chronic gouty tophi and ulceration to the medial eminence of the left foot which has been recurrent and recalcitrant to local wound care as well as full-thickness ulceration to the fifth metatarsal, left foot. Patient has been having wound care performed recently however was noted to have an infection at her last visit. She was given antibiotics however patient was seen in office yesterday on 10/14/2023 and was noted to have purulence from the left foot wound with breakdown of the fifth metatarsal head. Patient was sent to the ER to be admitted as her preop labs were noted to be with elevated white count. Patient received antibiotics in the ER however considering her white count had gone down and lack of bed availability and the fact the patient does not meet admission criteria patient was discharged home with instructions for n.p.o. and presenting to the hospital again today for over procedure. I discussed the risks benefits and possible complications of the procedure in detail with the patient including but not limited to pain, nerve pain, bleeding, wound dehiscence, delayed healing, nonhealing, need for further surgery or amputation. Patient understands and assumes all risks. No contraindications were noted to the procedure at this time. Patient has been n.p.o. midnight. Chart was reviewed prior to surgery. Patient understands that the purpose of the bunionectomy is not to straighten the bunion however to remove all necrotic gouty tophus material and allow the ulcer to heal whereby also performing surgical offloading by removing the medial eminence. Procedure Description: Patient was identified in preop holding. Site was marked. I discussed the procedure in detail with the patient again. I discussed proceeding with a parti al fifth ray amputation as opposed to just resection of the head of the metatarsal patient agreed. Patient was brought to the operating room placed on the operating table in supine position with the anesthesia team. After induction of general anesthesia the left foot was anesthetized using 20 mL 1% lidocaine plain preoperatively via a Kendrick and reverse Kendrick block. A tourniquet was applied about the left ankle. The left lower extremity was then scrubbed prepped and draped in the usual aseptic manner. Attention was then directed to the dorsal aspect of the left first metatarsophalangeal joint bilaterally Medial incision was planned using skin marker. Incision was made using a sterile #15 blade incision was deepened to the level of skin and subcutaneous tissue taking care to her secondary back all vital neurovascular structures all bleeders were ligated and cauterized as necessary.. The incision was then made in the capsule via linear incision the capsule was then reflected medially and laterally from the first metatarsal thus exposing the joint where a gouty tophi and capsular distraction was noted once the head of the metatarsal was freed, using a sagittal saw the medial eminence was resected and passed from the operative field sent to pathology. Further medial eminence was then resected as all margins and sent to pathology for further identification. All necrotic nonviable cavity took place tissue was then resected using sharp and dull dissection.. This site was then flushed with copious amounts of sterile saline. The capsule was then reapproximated using 3-0 Vicryl. The ulcer medially was excised and reapproximated using 4-0 nylon. The skin was then reapproximated from the first metatarsal phalangeal joint incision with 4-0 Vicryl. Attention was directed to the lateral aspect of the left foot where an ulcer was later noted subfifth metatarsal head. 2 semielliptical incisions were made along the fifth ray using a sterile #15 blade to the level of bone. The skin and soft tissue was then reflected medially and laterally thus exposing the fifth metatarsal. Using a sagittal saw an incision was made in the dorsal distal to proximal plantar direction along the mid shaft level of the fifth metatarsal. This was then from the operative field. Clear margins were then obtained again with a sagittal saw. These were then sent to pathology. Soft tissue cultures were obtained from the lateral incision site. This incision site was then flushed with copious amounts of sterile saline. Deep structures were reapproximated using 3-0 Prolene. Skin was then reapproximated using 3-0 nylon. A interrupted sutures. The tourniquet was then deflated. Dressings were then applied with Xeroform gauze, 4 x 4, Kerlix with an ABD pad. An Wolfgang wrap was then applied. Patient tolerated procedure anesthesia well advance and stable and vascular status intact to the left foot. Patient was transferred to same-day for further monitoring to be discharged home. Patient is to keep the dressings clean dry and intact. Patient is to follow-up with me in office within 7 days.
--- NOTE | 2023-10-15 14:09 | DI.RAD_ITS ---
Exam(s) XR FOOT LT COMPLETE EXAM: XR FOOT LT COMPLETE CLINICAL HISTORY: Postop. TECHNIQUE: 2D digital imaging was performed of the left foot. Three images were obtained. AP, obli que and lateral views were obtained. COMPARISON: CR XR FOOT LT COMPLETE from 10/14/2023 FINDINGS: BONES: No acute fracture is present. Patient is now status post resection of the 5th digit to the lev el of the mid 5th metatarsal bone. There is also been interval removal of a portion of the medial as pect of the head of the 1st metatarsal bone. JOINTS: No dislocation present. Degenerative changes are again seen at the 1st MTP joint. SOFT TISSUE: There is soft tissue swelling of the forefoot. Dystrophic calcifications are seen in th e plantar surface of the foot. IMPRESSION: 1. Interval resection of the 5th digit to the level of the mid 5th metatarsal bone. 2. Interval resection of portion of the medial aspect of the head of the 1st metatarsal bone. 3. Soft tissue swelling of the foot. DATA REPOSITORY: RADIATION DOSE DELIVERED:
[2023-10-15 14:10] VITALS: BP 143/76; PULSE 67; RESP 67; TEMP 36.2; O2SAT 97
--- NOTE | 2023-10-15 14:13 | W.ANESPOSTOP ---
Postoperative Evaluation Date, Time and Location Date Performed: 10/15/23 Time Performed: 13:40 Patient Location: Day Surgery Unit Vital Signs Most Recent Imported Vital Signs: Most Recent Vital Signs Temp Pulse Resp BP Pulse Ox 36.2 C L 60 16 112/55 L 95 10/15/23 13:37 10/15/23 13:37 10/15/23 13:37 10/15/23 13:37 10/15/23 13:37 Pain Score Most Recent Pain Score: Most Recent Pain Score Pain Level 0 10/15/23 13:37 Assessment Mental Status: Awake (Alert & Oriented to Patient Baseline) Airway and Respiratory Function: Patent airway with normal (patient baseline) respiratory exam Cardiovascular Function: Hemodynamically Stable Hydration Status: Adequately Hydrated Nausea & Vomiting: No Nausea or Vomiting Pain: Pt. Denies Any Pain Peripheral Nerve Block: Patient did not receive a nerve block
--- NOTE | 2023-10-15 15:25 | IN_ITS ---
PT Notes Physical Therapy Inpatient Initial Evaluation Date: 10/15/2023 Referring Doctor: Natali Multani MD PT Orders: PT CONSULT: Non weight bearing to the L foot Precautions: Per verbal order of Dr. Austin to Nurse Berta, patient may PWB on L heel for safety using FWW. Patient Profile/Admitting Diagnosis: Laurie is an 83-year-old female with diagnosis of ulcer and osteomyelitis of left 5th metatarsal and full-thickness ulcer/cellulitis secondary to gout of the first MTP joint on the left and is status post bunionectomy with medial resection/arthritis of 5th metatarsal and partial fifth ray amputation on POD 0. 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) POCUS 10/06/23 History of diverticulitis (Acute) Hx: recurrent pneumonia (Acute) Wheeze (Acute) Iron deficiency anemia (Acute 04/07/05) esophagitis/excedrin EGD 2005, 2006 INDEFINITE RX PPI; HEALED 2008; COLON 2005; persists 09/16, RESPONDS TO FE; Hb 7.0 not on Fe 07/2014 Anemia (Chronic) Anemia of chronic disorder (Acute 09/04/10) LOW EPO LEVEL 08/2010; mild CKD eGFR 44 Screening for osteoporosis (Acute) Post-menopausal (Acute) Allergic rhinitis (Acute 09/05/11) AM RHINORRHEA, CLOTRIMETON Type 2 diabetes mellitus without complication, without long-term current use of insulin (Acute 11/25/17) Esophagitis (Acute 10/05/05) FE DEF, EGD POS 12/11, 01/11, NEG 05/16 BUT STILL CHRONIC GASTRITIS, H PYLORI NEG; EGD KARTHIK; HEALED 2008; REC INDEFINITE PPI; 2005; recur anemia; 2014, H Pylori ab neg; EGD 05/2015 Castillo's metaplasia, 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 RML LESION; CT 07/07/12 ? SAME Medical History Family history of ischemic heart disease (09/05/11) Social History/Home Situation: Lives alone in a private home with 3 steps to enter without rails. Brother and fseswj-uj-kos able to provide assistance to get into house with patient using single point cane. Equipment Owned/DME: Single point cane Subjective: Agreeable to seeing how she would do with walking and trying out the stairs. Cjjkxb-bk-wyz and strongly questioned decision to potentially send patient home pending PT evaluation for safety. Understood that the reason why PT was called in is to see whether patient will be safe to go home alone. Dr. Multani cam in per [id number]'s request. Tmadshty-ym-lji was openly rude to Dr. Multani about her decision to send patient home telling her that they will call Dr. Multani directly at the ED in the middle of the night should patient prove to be unsafe at home. Objective: General Observation: Resting in bed. Wound ressing and post op shoe on L in place. Mental Status: Alert and oriented as to person, place, time, and purpose. Able to pay attention, focus, and respond appropriately. Pain:None reported Vital Signs: Closely monitored by nursing staff ROM: Left Lower Extremity: Hip flexion WFL. Hip abduction WFL. Knee flexion WFL. Ankle dorsiflexion limited due to post-op status. Ankle plantarflexion limited due to post-op status. Strength: Left Lower Extremity: Hip flexors 4/5. Hip abductors 4/5. Knee flexors 4/5. Knee extensors 4/5. Ankle dorsiflexors 3-/5. Ankle plantarflexors 3-/5. Bed Mobility/Transfers: Minimal cueing provided for use of B hands as needed for support, WB pr ecaution, movement sequence, AD management, and posture to reduce fall risk and minimize pain report Rolling stand by assist Supine to sit stand by assist Sit to stand stand by assist Stand to sit stand by assist Gait: 200 feet with partial WB through L heel using front-wheeled walker with minimal cues for safe and correct WB precaution, AD management, and directional changed. No loss of balance. No shortness of breath. Denied headache, chest pain, and lightheadedness throughout session. Stairs: Holding onto one rail and using single-point cane on the other side, patient was able to negotiate 3 x 4-inch steps with conatct guard assist. Minimal cues provided for correct techniques and safety. Balance: Static Sitting: Normal Dynamic Sitting: Normal Static Standing: Fair Dynamic Standing: Poor Special Tests: Mobility Limitations Standardized Measure [facility] AM-PAC 6 clicks Basic Mobility Inpatient Short Form: Raw Score: 23 CMS Score: 11% deficit Informed Consent/Education: Patient was instructed in purpose of PT consult and plan of care. Agreeable to proceed with established PT POC to achieve personal goals. Assessment: Completed mobility assessment in full compliance of weight bearing precautions using front-wheeled walker. Patient was confident to go home after mobility assessment and functional mobility training. Provided properly fitted front- wheeled walker for patient. Patient presents with clinical signs and symptoms consistent with current/admitting diagnoses that have resulted to mobility limitations, gait instability, generalized weakness, and overall ADL decline as demonstrated by the following impairment level findings: 1. Decreased strength to L ankle major muscle groups 2. Impaired standing balance 3. Impaired activity tolerance 4. Limitation of joint range of motion in L ankle 5. PWB on the L LE with AD Impairments are contributing to the following functional limitations: 1. Difficulty with ambulation without assistive device 2. Increased completion time for mobility ADL performance 3. Increased risk for falls 4. Difficulty with managing steps alone safely Patient is assessed as a 14140 low complexity based on the following: History: 83-year-old female with past medical history as indicated above Examination: Demonstrable impairment in strength, balance, and mobility level with underlying impairments and functional limitations as exhibited above as well as deficit score of 23% utilizing the [facility] Mobility Inpatient Short Form Presentation: Evolving Decision Makin moderate complexity Goals: N/A. PT evaluation only and functional mobility training for AD use and safety. Plan of Care/Treatment Plan: N/A. PT evaluation only and functional mobility training for AD use and safety. DISCHARGE RECOMMENDATIONS: [] Home with no services [] [X] Home with services patient will benefit from home health PT services in order to progress mobility level using least restrictive assistive ambulatory device, assess home safety, identify additional equipment needs, and establish a functional maintenance program that will increase ability of patient to remain at home. [] Home with outpatient PT [] [] SNF for continued rehabilitation [] [] Group Home Care [] [] SNF versus LTC based on ability to participate and progress [] TREATMENT CODE/TIME: 89816 x 20 minutes for 1 unit, 78191 x 15 minutes for 1 unit (15:25-16:00) Thank you for the opportunity to participate in the care of this patient. Kassie Rodriguez PT, DPT, CLT [facility] [place], [place]
--- NOTE | 2023-10-15 16:05 | DSU.FORM ---
10/15/23 1230 Patient sister in law Yesi Hall in room with the patient. Yesi became quite animated about the need for the patient to have a responsible adult to stay with the patient until appropriately recovered from anesthesia. Yesi stated I was told that Pat would be admitted and all we had to do was pick her up This nurse explained the reason for the need to have a responsible adult for patients who have had anesthesia and that is was a hospital policy. was informed of the sister in laws questions and that she was very angry and wanted to speak with her (Dr. Alacntara).
== END 2023-10-15 16:50 | disposition home or self-care (01) ==
PROVIDERS: PCP Nurse Practitioner; Visit Provider Podiatrist
PROC: (CPT 28292; principal; 2023-10-15 12:45)
PROC: (CPT 28288; 2023-10-15 12:45)
DX: E11.69 Type 2 diabetes mellitus with other specified complication (principal); M86.172 Other acute osteomyelitis, left ankle and foot; L97.522 Non-pressure chronic ulcer of other part of left foot with fat layer exposed; M21.612 Bunion of left foot; L03.116 Cellulitis of left lower limb; E11.22 Type 2 diabetes mellitus with diabetic chronic kidney disease; N18.30 Chronic kidney disease, stage 3 unspecified; M86.672 Other chronic osteomyelitis, left ankle and foot
CPT/HCPCS: 28810; 28292; 00123; 87077; 88300; 88305; 97161; 97530; 73630; 87070; 87075; 87186; 87205; 88304; 88307; 88311; J0665; J0690; J1885; J2001; J2405; J2704

== ENCOUNTER → 2023-10-22 12:45 | Outpatient (BNVA) | payer MEDICARE, BC, SELFPAY | PROVIDERS: PCP Nurse Practitioner; Referring Provider Nurse Practitioner; Visit Provider Podiatrist | DX: Z98.890 Other specified postprocedural states (principal); M86.8X7 Other osteomyelitis, ankle and foot; M1A.9XX1 Chronic gout, unspecified, with tophus (tophi); L97.522 Non-pressure chronic ulcer of other part of left foot with fat layer exposed; L03.116 Cellulitis of left lower limb | CPT/HCPCS: 99024 ==

== ENCOUNTER → 2023-11-03 10:59 | Outpatient (BNVA) | payer MEDICARE, BC, SELFPAY | PROVIDERS: PCP Nurse Practitioner; Referring Provider Nurse Practitioner; Visit Provider Student in an Organized Health Care Education/Training Program | DX: M17.11 Unilateral primary osteoarthritis, right knee (principal); M16.11 Unilateral primary osteoarthritis, right hip | CPT/HCPCS: 20610; J1010 ==

== ENCOUNTER → 2023-11-06 12:49 | Outpatient (BNVA) | payer MEDICARE, BC, SELFPAY | PROVIDERS: PCP Nurse Practitioner; Referring Provider Nurse Practitioner; Visit Provider Podiatrist | DX: Z98.890 Other specified postprocedural states (principal); M86.9 Osteomyelitis, unspecified; M1A.9XX1 Chronic gout, unspecified, with tophus (tophi); L97.522 Non-pressure chronic ulcer of other part of left foot with fat layer exposed; L03.116 Cellulitis of left lower limb | CPT/HCPCS: 99024 ==

== ENCOUNTER → 2023-11-11 08:50 | Outpatient (BNVA) | payer MEDICARE, BC, SELFPAY | PROVIDERS: PCP Nurse Practitioner; Referring Provider Nurse Practitioner; Visit Provider Internal Medicine Critical Care Medicine | DX: J47.9 Bronchiectasis, uncomplicated (principal) | CPT/HCPCS: 99214 ==

== ENCOUNTER 2023-12-16 01:14 | Outpatient (CLI) | payer MEDICARE, BC, SELFPAY ==
--- NOTE | 2023-12-16 07:00 | DI.CT_ITS ---
Exam(s) CT CHEST WO EXAM: CT CHEST WO CLINICAL HISTORY: f/u bronchiectasisis,j47.9 TECHNIQUE: Imaging Protocol: Axial computed tomography images with coronal and sagittal reformatted images were created and reviewed CONTRAST MATERIAL: Intravenous: Omnipaque 350 Contrast volume:structured data ml. COMPARISON: CT CT CHEST WO from 09/25/2023 FINDINGS: Exam is somewhat limited by motion. Pulmonary parenchyma: Biapical scarring. Stable opacities seen in right upper and middle lobe, left upper lobe and lingula. Stable bronchiectasis in left upper lobe and lingula. Distal mucous pluggin g in lingula. No dominant measurable mass. Tracheobronchial tree: No bronchiectasis or mucous plugging. Mediastinum and Jing: No dominant adenopathy or fluid collection. Large hiatal hernia. Pleura: No effusion. No pneumothorax. Heart: The heart is mildly dilated. Chzu-ja-fqrkolkf coronary artery calcifications are seen. Aorta: Thoracic aorta non-dilated. Mild atherosclerotic changes. Pulmonary arteries: No gross evidence of emboli. Upper abdomen: No acute findings. Liver cysts and renal cyst again noted. Bones: Degenerative changes in the spine. Soft tissues: Unremarkable. IMPRESSION: Stable bronchiectasis. Stable bilateral infiltrates. RADIATION DOSE DELIVERED: 138.35mGy.cm Total DLP DATA REPOSITORY: All CT scans at this facility are submitted to the National Radiology Data Registry (NRDR) Dose Index Registry (DIR) with the [employer] (A[employer]). RADIATION OPTIMIZATION: All CT scans at this facility use at least one of these dose optimization te chniques: automated exposure control; mA and/or kV adjustment per patient size (includes targeted exa ms where dose is matched to clinical indication); or iterative reconstruction.
== END 2023-12-16 01:34 ==
LOC: DI 01:14
PROVIDERS: PCP Nurse Practitioner; Visit Provider Physician Assistant Surgical
DX: J47.9 Bronchiectasis, uncomplicated (principal)
CPT/HCPCS: 71250

== ENCOUNTER → 2024-01-05 10:29 | Outpatient (BNVA) | payer MEDICARE, BC, SELFPAY | PROVIDERS: PCP Nurse Practitioner; Referring Provider Nurse Practitioner; Visit Provider Student in an Organized Health Care Education/Training Program | DX: M11.261 Other chondrocalcinosis, right knee (principal); M16.11 Unilateral primary osteoarthritis, right hip | CPT/HCPCS: 20611; J1010 ==

== ENCOUNTER 2024-01-10 15:43 | Emergency (ER) | payer MEDICARE, BC, SELFPAY ==
--- NOTE | 2024-01-10 15:30 | RT.EKG_ITS ---
APPROVED REPORT Exam: Resting ECG Reason for Exam: Chest Pain Patient Location: E HR:87 bpm ECG Measurements Heart Rate 87 AXIS NJ 151 P 82 QRSd 140 QRS 84 QT 389 T 43 QTc 465 Conclusion Sinus rhythm 87 RBBB PAC no change from prior
[2024-01-10 15:44] VITALS: BP 164/80; PULSE 89; RESP 20; TEMP 36.7; O2SAT 97
--- NOTE | 2024-01-10 15:45 | DI.CT_ITS ---
Exam(s) CT CHEST WO EXAM: CT CHEST WO CLINICAL HISTORY: Sternal pain TECHNIQUE: Imaging Protocol: Axial computed tomography images with coronal and sagittal reformatted images were created and reviewed CONTRAST MATERIAL: Intravenous: Omnipaque 350 Contrast volume:structured data ml. COMPARISON: CT CT CHEST WO from 09/25/[address] CHEST WO from 12/16/2023 FINDINGS: Pulmonary parenchyma: No consolidation. No dominant measurable mass. Mild bilateral scarring. Tracheobronchial tree: Mild bronchiectasis and mucous plugging seen in the medial right middle lobe a nd lingula findings similar to prior. To mucous plugging now noted in the periphery of the right lo wer lobe. Patchy densities now seen in the posterior left lower lobe. Mediastinum and Jing: No dominant adenopathy or fluid collection. Large hiatal hernia. Pleura: No effusion. No pneumothorax. Pleural thickening at the apices. Heart: The heart is mildly dilated. Moderate coronary artery calcifications are seen. Aorta: Thoracic aorta non-dilated. Mild atherosclerotic changes. Pulmonary arteries: No gross evidence of emboli. Upper abdomen: No acute findings. Bones: Degenerative changes in the spine. Kyphosis and mild scoliosis.. No evidence of compressio n fractures. Sternum shows no evidence of fracture. Soft tissues: Unremarkable. IMPRESSION: No evidence of acute posttraumatic abnormality. Chronic pulmonary changes with some interval worsening of bibasilar opacities. Clinical correlation is recommended. RADIATION DOSE DELIVERED: Total DLP DATA REPOSITORY: All CT scans at this facility are submitted to the National Radiology Data Registry (NRDR) Dose Index Registry (DIR) with the [employer] (ACR). RADIATION OPTIMIZATION: All CT scans at this facility use at least one of these dose optimization te chniques: automated exposure control; mA and/or kV adjustment per patient size (includes targeted exa ms where dose is matched to clinical indication); or iterative reconstruction.
[2024-01-10 15:48] VITALS: BP 164/80; PULSE 91; O2SAT 97
[2024-01-10 15:49] VITALS: O2SAT 95
[2024-01-10 15:50] VITALS: RESP 19; O2SAT 96
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
[2024-01-10 16:00] VITALS: BP 163/65; PULSE 85; PULSE 86; RESP 17; O2SAT 97
[2024-01-10 16:01] VITALS: PULSE 81; RESP 19; O2SAT 97
[2024-01-10 16:03] LABS: Abs Immature Grans 0.06 10^3/uL (0.0-0.06); Absolute Basophil Count 0.07 10^3/uL (0.0-0.2); Absolute Monocyte Count 0.71 10^3/uL (0.1-0.8); Absolute Neutrophil Count 8.56 10^3/uL (1.2-6.7); Basophils % 0.7 %; HCT 31.3 % (36.0-46.0); HGB 9.6 g/dL (11.2-15.7); Immature Grans % 0.6 %; Lymphocytes % 6.9 %; MCH 27.7 pg (27.0-33.0); MCHC 30.7 % (32.0-36.0); MCV 91 fL (80-95); MPV 9.7 fL (8.0-11.0); Neutrophils % 83.8 %; Platelet Count 392 10^3/uL (130-400); RBC 3.46 10^6/uL (3.93-5.22); RDW 14.1 % (11.7-14.6); RDW-SD 47.1 fL
[2024-01-10 16:23] LABS: ALT 19 U/L (14-59); AST 21 U/L (15-37); Albumin 3.4 g/dL (3.4-5.0); Alkaline Phosphatase 80 U/L (46-116); Anion Gap 9.5 mmol/L (3-11); BUN 30 mg/dL (7-18); Bilirubin, Total 0.27 mg/dL (0.2-1.0); CO2 27.5 mmol/L (21.0-32.0); CREATININE 1.1 mg/dL (0.55-1.02); Calcium 9.7 mg/dL (8.5-10.1); Chloride 104 mmol/L (98-107); Estimated GFR 50.17 (mL/min/1.73m2); Glucose 129 mg/dL (74-106); Potassium 4.1 mmol/L (3.5-5.1); Sodium 141 mmol/L (136-145); Total Protein 6.9 g/dL (6.4-8.2); Troponin I 14 ng/L (<or=51)
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
[2024-01-10] MEDS: ACETAMINOPHEN 1,000 MG/100 ML BTL 400 MG IVPB (16:25)
== END 2024-01-10 16:56 | disposition home or self-care (01) ==
PROVIDERS: Emergency Provider Emergency Medicine; PCP Nurse Practitioner
DX: R07.89 Other chest pain (principal); S20.219A Contusion of unspecified front wall of thorax, initial encounter; I45.19 Other right bundle-branch block; I12.9 Hypertensive chronic kidney disease with stage 1 through stage 4 chronic kidney disease, or unspecified chronic kidney disease; E11.22 Type 2 diabetes mellitus with diabetic chronic kidney disease; N18.30 Chronic kidney disease, stage 3 unspecified; V43.52XA Car driver injured in collision with other type car in traffic accident, initial encounter
CPT/HCPCS: 36415; 71250; 80053; 93005; 96374; 99285; 84484; 85025; 93010; 99284; J0131

== ENCOUNTER → 2024-02-09 10:46 | Outpatient (BNVA) | payer MEDICARE, BC, SELFPAY | PROVIDERS: PCP Nurse Practitioner; Visit Provider Student in an Organized Health Care Education/Training Program | DX: M11.261 Other chondrocalcinosis, right knee (principal); M16.11 Unilateral primary osteoarthritis, right hip | CPT/HCPCS: 20610; J1010 ==

== ENCOUNTER 2024-05-10 13:32 | Outpatient (CLI) | payer MEDICARE, BC, SELFPAY ==
--- NOTE | 2024-05-10 11:30 | DI.RAD_ITS ---
Exam(s) XR PELVIS PREOP ORTHO EXAM: XR PELVIS PREOP ORTHO CLINICAL HISTORY: pre JONATHAN planning. TECHNIQUE: 2D digital imaging was performed. Single AP view. COMPARISON: CR XR HIP RT COMPLETE AP PELVIS from 03/24/2023 FINDINGS: BONES: No acute fracture is present. No bony destructive lesion is seen. JOINTS: No dislocation present. There is severe narrowing of the right hip joint space, with a bone- on-bone appearance. There is periarticular spurring as well as subchondral cyst formation. There is also severe narrowing of the left hip joint space and periarticular spurring. SOFT TISSUE: Normal. IMPRESSION: End-stage degenerative changes of the right hip. Severe degenerative changes of the left hip. DATA REPOSITORY: RADIATION DOSE DELIVERED:
== END 2024-05-10 13:33 | disposition home or self-care (01) ==
LOC: DIORS 13:32
PROVIDERS: PCP Nurse Practitioner; Referring Provider Nurse Practitioner; Visit Provider Student in an Organized Health Care Education/Training Program
DX: M16.11 Unilateral primary osteoarthritis, right hip (principal)
CPT/HCPCS: 99215; 72190

== ENCOUNTER 2024-05-17 02:48 | Outpatient (CLI) | payer MEDICARE, BC, SELFPAY ==
[2024-05-17 11:49] LABS: HCT 30.7 % (36.0-46.0); HGB 9.3 g/dL (11.2-15.7); MCH 28.4 pg (27.0-33.0); MCHC 30.3 % (32.0-36.0); MCV 94 fL (80-95); MPV 9.5 fL (8.0-11.0); Platelet Count 355 10^3/uL (130-400); RBC 3.27 10^6/uL (3.93-5.22); RDW 13.4 % (11.7-14.6); RDW-SD 46.3 fL
[2024-05-17 12:27] LABS: Anion Gap 6.1 mmol/L (3-11); BUN 33 mg/dL (7-18); CO2 29.9 mmol/L (21.0-32.0); CREATININE 1.1 mg/dL (0.55-1.02); Calcium 10.3 mg/dL (8.5-10.1); Chloride 105 mmol/L (98-107); Estimated GFR 49.86 (mL/min/1.73m2); Glucose 94 mg/dL (74-106); Potassium 4.5 mmol/L (3.5-5.1); Sodium 141 mmol/L (136-145)
== END 2024-05-17 02:49 | disposition home or self-care (01) ==
LOC: LBO 02:48
PROVIDERS: PCP Nurse Practitioner; Visit Provider Student in an Organized Health Care Education/Training Program
DX: M16.11 Unilateral primary osteoarthritis, right hip (principal); Z01.818 Encounter for other preprocedural examination
CPT/HCPCS: 36415; 80048; 85027

== ENCOUNTER 2024-05-24 01:32 | Outpatient (CLI) | payer MEDICARE, BC, SELFPAY ==
--- NOTE | 2024-05-24 07:15 | DI.CT_ITS ---
Exam(s) CT CHEST WO EXAM: CT CHEST WO CLINICAL HISTORY: bronchiectasis, waxing waning opacities,f/u abln finding,R91.8. TECHNIQUE: Imaging protocol: Axial computed tomography images were obtained and coronal and sagittal reformatted images were created and reviewed. Lung Computer Aided Detection (CAD) was utilized. COMPARISON: CT CT ABDOMEN PELVIS WO from 11/14/[address] CHEST WO from 01/10/2024 FINDINGS: Tracheobronchial tree: Patent where visualized. There are bronchiectatic changes seen in the lungs pa rticularly in the left upper and left lower lobes. There is some mucous plugging seen in the left li ngula. Pulmonary parenchyma: There are bilateral reticular nodular infiltrates and opacities in the lungs. There are some areas which show some improvement however overall there does appear to be a slight wor sening of the opacities since the prior examination. There is a thick-walled air-filled lesion again seen in the left upper lobe which has shown increase in size. It currently measures 2.9 x 2.9 cm. Overall the lungs appear hyperinflated. Mediastinum and Jing: No dominant adenopathy or fluid collection. The esophagus is unremarkable.There is a large hiatal hernia. Thyroid gland: Unremarkable. Pleura: No effusion or pneumothorax. Heart: Mild cardiomegaly. Three vessel coronary artery calcification is present. No pericardial eff usion. Aorta: Thoracic aorta non-dilated. Atherosclerotic calcification is present. Upper abdomen: There is a stable hepatic cyst. Lymph nodes: Within normal limits. Soft tissues: Unremarkable. Bones:Within normal limits for the patient's age. Stable perineural root sleeve cysts. There is pro minent kyphosis of the thoracic spine. There is sclerosis of the midportion of the sternum suggestin g a healing fracture. There is no fracture on the prior examination 01/10/2024. IMPRESSION: 1. Overall, slight progression of the infiltrates in the lungs since 01/10/2024. 2. Interval increase in size of the thick-walled fluid air lesion in the left upper lobe now measurin g 2.9 x 2.9 cm. Infection or neoplasm should be considered. RADIATION DOSE DELIVERED: 137.44mGy.cm Total DLP 137.44mGy.cm Total DLP DATA REPOSITORY: All CT scans at this facility are submitted to the National Radiology Data Registry (NRDR) Dose Index Registry (DIR) with the [employer] (ACR). RADIATION OPTIMIZATION: All CT scans at this facility use at least one of these dose optimization te chniques: automated exposure control; mA and/or kV adjustment per patient size (includes targeted exa ms where dose is matched to clinical indication); or iterative reconstruction.
== END 2024-05-24 01:52 ==
LOC: DI 01:32
PROVIDERS: PCP Nurse Practitioner; Visit Provider Internal Medicine Critical Care Medicine
DX: R91.8 Other nonspecific abnormal finding of lung field (principal)
CPT/HCPCS: 71250

== ENCOUNTER 2024-05-28 07:21 | Observation (INO) | payer MEDICARE, BC, SELFPAY ==
[2024-05-28] VITALS (21 sets, daily range): BP systolic 102–149; BP diastolic 35–71; PULSE 57–90; RESP 13–36; TEMP 36–36.6; O2SAT 95–100
[2024-05-28] MEDS: Acetaminophen 500 MG TAB 1000 MG PO ×3 (08:18→19:35)
[2024-05-28] MEDS: Celecoxib 200 MG CAP 400 MG PO (08:18)
[2024-05-28] MEDS: Lactated Ringers 1,000 ML 80 ML IV (08:30)
--- NOTE | 2024-05-28 09:57 | ANES.PREOP_ITS ---
General Info Date of Service Date Performed: 05/28/24 Height: 5 ft 5 in Weight: 54.5 kg Body Mass Index (BMI): 20.0 Surgical Procedure: Operation Date: 05/28/24 10:20 Proposed Procedure Side Surgeon p Hip Total Hip Anterior, Corail Right Pavan Dai MD Meds Allergies and Home Medications Allergies Allergy/AdvReac Type Severity Reaction Status Date / Time ranitidine AdvReac Intermediate Stomach Verified 05/28/24 07:45 trouble 05/16 TRIAL Home Medication ?Medication ?Instructions ?Recorded acetaminophen 500 mg tablet 2 tab PO PRN PRN 06/30/12 ascorbic acid (vitamin C) 500 mg 500 mg PO BID #200 tabs 06/20/15 tablet (Vitamin C) colloidal oatmeal 1 % topical 1 applic topical TID PRN #206 grams 05/22/22 cream (Aveeno Moisturizing) lisinopril 20 1 tab PO DAILY #90 tabs 06/30/23 mg-hydrochlorothiazide 12.5 mg tablet albuterol sulfate 90 mcg/actuation 2 puff inhalation QID PRN 11/12/23 aerosol inhaler shortness of breath or wheezing #8.5 grams allopurinol 100 mg tablet 100 mg PO DAILY #90 tabs 01/13/24 celecoxib 100 mg capsule (Celebrex) 100 mg PO DAILY #90 caps 03/30/24 ferrous gluconate 240 mg (27 mg 240 mg PO DAILY #180 tab-caps 03/30/24 iron) tablet (Ferate) Current Visit Medications: Current Medications Generic Name Dose Route Start Last Admin Trade Name Freq PRN Reason Stop Dose Admin Acetaminophen 1,000 mg 05/28/24 06:00 05/28/24 08:18 Acetaminophen 500 Mg Tab PO 05/28/24 23:59 1,000 mg PREOP HUMA Administration Acetaminophen 1,000 mg 05/28/24 14:00 Acetaminophen 500 Mg Tab PO 06/27/24 13:59 TID HUMA Albuterol Sulfate 2 puff 05/28/24 07:25 Albuterol Hfa 8 Gm 60 Puff Inh IH 06/27/24 07:24 QID PRN PRN shortness of breath or wheezin Allopurinol 100 mg 05/28/24 08:30 Allopurinol 100 Mg Tab PO 06/27/24 08:29 DAILY HUMA Aspirin 81 mg 05/28/24 20:00 Aspirin E.C. 81 Mg Tabec PO 06/27/24 19:59 BID HMUA Celecoxib 400 mg 05/28/24 06:00 05/28/24 08:18 Celecoxib 200 Mg Cap PO 05/28/24 23:59 400 mg PREOP HUMA Administration Celecoxib 200 mg 05/28/24 20:00 Celecoxib 200 Mg Cap PO 06/27/24 19:59 BID HUMA Device 1 each 05/28/24 07:25 Inhaler, Assist Device MC 06/27/24 07:24 DIRECTED [facility] Dexamethasone 4 mg 05/28/24 08:30 Dexamethasone 4 Mg Tab PO 05/29/24 08:31 DAILY [facility] Docusate Sodium 100 mg 05/28/24 07:20 Docusate Sodium 100 Mg Cap PO 06/27/24 07:19 BID PRN PRN Constipation Hydrochlorothiazide 12.5 mg 05/28/24 08:30 Hydrochlorothiazide 12.5 Mg Tab PO 06/27/24 08:29 QAM HUMA Hydromorphone HCl 0.5 mg 05/28/24 07:20 Hydromorphone 2 Mg/Ml Syr IVP 06/27/24 07:19 Q2H PRN PRN Ringer's Solution 1,000 mls @ 80 mls/hr 05/28/24 06:00 05/28/24 08:30 IV 05/28/24 23:59 80 mls/hr INFUSION HUMA Administration Cefazolin Sodium/Dextrose 2 gm in 50 mls @ 100 mls/hr 05/28/24 07:30 Ancef Duplex IVPB 06/27/24 07:29 PREOP HUMA Tranexamic Acid/Sodium Chloride 1,000 mg in 100 mls @ 600 mls/hr 05/28/24 07:30 IVPB 06/27/24 07:29 PREOP HUMA Cefazolin Sodium/Dextrose 1 gm in 50 mls @ 100 mls/hr 05/28/24 08:00 Ancef Duplex IVPB 05/29/24 00:29 Q8H HUMA IV Miscellaneous Supplies 1 each 05/28/24 06:00 Iv Access IV 05/28/24 23:59 DIRECTED [facility]MA Lisinopril 20 mg 05/28/24 08:30 Lisinopril 20 Mg Tab PO 06/27/24 08:29 DAILY [facility] Ondansetron HCl 4 mg 05/28/24 07:20 Ondansetron 4 Mg/2 Ml Vial IVP 06/27/24 07:19 Q6H PRN PRN Nausea Oxycodone HCl 0 mg 05/28/24 07:20 Oxycodone 5 Mg Tab PO 06/27/24 07:19 Q3H PRN PRN Pain Pantoprazole Sodium 40 mg 05/28/24 07:30 Pantoprazole 40 Mg Tabcr PO 06/27/24 07:29 DAILY@0730 [facility] Polyethylene Glycol 17 gm 05/28/24 07:20 Polyethylene Glycol 3350 17 Gm Packet PO 06/27/24 07:19 BID PRN PRN Constipation Sodium Chloride 0 ml 05/28/24 06:00 Normal Saline Flush 10 Ml Syr IV 05/28/24 23:59 PRN PRN Sodium Chloride 0 ml 05/28/24 06:00 Normal Saline 10 Ml Vial IJ 05/28/24 23:59 DIRECTED PRN Sterile Water 0 ml 05/28/24 06:00 Water,Injection,Sterile 10 Ml Vial IJ 05/28/24 23:59 DIRECTED PRN PFSH Active Problems Active Problems: Problem Status Onset Code Chondrocalcinosis of right knee Acute M11.261 Arthritis of right hip Acute M16.11 Osteoarthrosis of ankle and foot Acute Unknown M19.079 Non-pressure chronic ulcer of other part of left foot with necrosis of bone Acute L97.524 Opacity of lung on imaging study Acute R91.8 Status post foot surgery Acute Z98.890 Osteomyelitis of left foot Acute M86.9 Cellulitis Acute L03.90 Ulcer of left foot with fat layer exposed Acute L97.522 Bronchiectasis Acute J47.9 Tear of skin of plantar aspect of left foot Acute S91.312A Chronic ulcer of left foot Acute L97.529 Gouty arthropathy with tophi Acute M1A.9XX1 Gout Chronic M10.9 Degenerative joint disease of right hip Chronic M16.11 History of diverticulitis Acute Z87.19 Hx: recurrent pneumonia Acute Z87.01 Wheeze Acute R06.2 Iron deficiency anemia Acute 04/07/05 D50.9 Anemia Chronic D64.9 Anemia of chronic disorder Acute 09/04/10 D63.8 Screening for osteoporosis Acute Z13.820 Post-menopausal Acute Z78.0 Allergic rhinitis Acute 09/05/11 J30.9 Type 2 diabetes mellitus without complication, without long-term current use of insulin Acute 11/25/17 E11.9 Esophagitis Acute 10/05/05 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 Acute 06/20/15 K22.70 Chronic kidney disease, stage III (moderate) Acute 09/05/11 N18.3 Unspecified essential hypertension Acute 11/04/92 I10 Hearing loss Acute 07/31/12 H91.90 Onychomycosis Acute 07/19/16 B35.1 Osteoarthritis of finger of right hand Acute 10/17/15 M19.041 Statin declined Chronic Z53.20 Other and unspecified hyperlipidemia Acute 04/06/92 E78.5 Standard chest x-ray abnormal Acute 09/05/11 R93.89 Medical History Medical History History of toe fracture 1st toe L foot Family history of ischemic heart disease (09/05/11) Surgical History Surgical History S/P foot surgery, left (12/18/23) Dr Cat partial excision of L 5th metatarsal and L 1st metatarsal due to chronic ulceration/osteomyelitis and gout 02/19/24-amputation L 2nd toe S/P bunionectomy (10/15/23) Dr Multani with medial eminence resection/arthrotomy, L foot History of partial ray amputation of fifth toe of left foot (10/15/23) Dr Multani Tobacco Smoking/Tobacco Use Status: Never Alcohol Alcohol Intake: current Alcohol intake frequency: holidays/special occasions only Alcohol type: beer and other Substance Use Substance use: Never Substance use type: does not use Details: alcohol: 02/04/24 Vital Signs and Lab Results Vital Signs Most Recent Vital Signs in EMR: Most Recent Vital Signs Temp Pulse Resp BP Pulse Ox 36.5 C 90 20 149/56 H 95 05/28/24 08:08 05/28/24 08:08 05/28/24 08:08 05/28/24 08:08 05/28/24 08:08 Lab Results Blood Type / Crossmatch: No Data to Display Complete Blood Count: White Blood Count 7.40 10^3/uL (4.4-10.8) 05/17/24 11:45 Red Blood Count 3.27 10^6/uL (3.93-5.22) L 05/17/24 11:45 Hemoglobin 9.3 g/dL (11.2-15.7) L 05/17/24 11:45 Hematocrit 30.7 % (36.0-46.0) L 05/17/24 11:45 Platelet Count 355 10^3/uL (130-400) 05/17/24 11:45 Complete Metabolic Panel: Sodium 141 mmol/L (136-145) 05/17/24 11:45 Potassium 4.5 mmol/L (3.5-5.1) 05/17/24 11:45 Chloride 105 mmol/L (98-107) 05/17/24 11:45 Carbon Dioxide 29.9 mmol/L (21.0-32.0) 05/17/24 11:45 BUN 33 mg/dL (7-18) H 05/17/24 11:45 Creatinine 1.1 mg/dL (0.55-1.02) H 05/17/24 11:45 Est GFR (CKD-EPI 2020) 49.86 (mL/min/1.73m2) 05/17/24 11:45 Calcium 10.3 mg/dL (8.5-10.1) H 05/17/24 11:45 Glucose 94 mg/dL (74-106) 05/17/24 11:45 Liver Function Panel: No Data to Display Coagulation Panel: No Data to Display Cardiac Panel: No Data to Display Arterial Blood Gas: No Data to Display Venous Blood Gas: No Data to Display Pancreas Panel: No Data to Display Thyroid Panel: No Data to Display Infectious Disease: No Data to Display Blood Cultures: No Data to Display Toxicology Panel: No Data to Display Imaging and Studies Imaging and Studies Study information below may be from another EMR and interpreted by another provider. Please see original notes in EMR for more complete details. EKG Summary: 08/26/23 Conclusion Sinus rhythm...normal P axis, V-rate 60- 99 Right bundle branch block...QRSd>120, terminal axis(90,270) sinus rhythm, PAC and PVC, RBBB t wave inversions V1-V3 with mild ST depressions I have reviewed and interpreted ECG and agree with software generated interpretation. Electronically signed by: <Electronically signed by Latanya Chang M.D. in [place]> 08/28/23 0861 Anesthesia Assessment and Plan Anesthesia History Personal History: No History of Anesthesia Complications Family History: No Family History of Anesthesia Complications Exercise Tolerance Exercise Tolerance: Metabolic Equivalents<4 Pertinent Negatives Pertinent Negatives: No Symptoms of GERD Cardiac & Pulmonary Exam Cardiac Exam: Normal S1/S2 Heart Sounds Pulmonary Exam: Clear Bilateral Breath Sounds Implantable Cardiac Device Does patient have a Pacemaker or an ICD?: No Airway Exam Known Difficult Airway: No Mallampati Class: 2 Mouth Opening: Normal (> 3cm) Thyromental Distance: Less than 3 cm Neck Range of Motion: Full ROM Neck Circumference: Normal Teeth Condition: Removable Dentures/Plates Upper, Removable Dentures/Plates Lower and Edentulous ASA Classification ASA Score: ASA 3 Emergency Case?: No NPO Status NPO Status: NPO Clears >2 hours, Solids >8 hours Anesthesia Plan Resuscitation Status: Full Code Anesthesia Technique: Spinal Anesthesia Airway Planned: Natural Airway Monitors Used: Standard Monitors
[2024-05-28] MEDS: ceFAZolin 2 GM/50 ML BAG IVPB (10:36)
[2024-05-28] MEDS: TRANEXAMIC ACID/SOD. CHL. 1,000 MG/100 ML BAG 600 MG IVPB (10:43)
--- NOTE | 2024-05-28 11:49 | DI.RAD_ITS ---
Exam(s) XR HIP RT IN OR EXAM: XR HIP RT IN OR CLINICAL HISTORY: Arthritis of right hip TECHNIQUE: 2D and realtime digital imaging was performed. CONTRAST MATERIAL: Refer to procedure report. COMPARISON: CR XR PELVIS PREOP ORTHO from 05/10/2024 FINDINGS: Fluoroscopy was provided for Dr. Dai during the performance of a right total hip arthroplasty. Please refer to the procedure report for complete details. Ka,r=3.73 mGy IMPRESSION: RADIATION DOSE DELIVERED: 0.0 0.0 0
--- NOTE | 2024-05-28 12:21 | ROE_ITS ---
Operative Note Operative Note PRE-OP DIAGNOSIS: Right Hip Osteoarthritis POST-OP DIAGNOSIS: same PROCEDURE: Right Anterior Total Hip Arthroplasty with Intraoperative Navigation SURGEON: Pavan Dai HUMANITIES DIVISION CHAIR: Graciela Littlejohn ANESTHESIA TYPE: Spinal Refer to Anesthesia Record ESTIMATED BLOOD LOSS: 50 PATHOLOGY: none sent TOURNIQUET TIME: 0 COMPLICATIONS: None Patient was transported to: PACU Patient's condition: stable Implants: 1. Depuy [place] Acetabular Component, 52mm 2. Depuy Acetabular Liner, [id number] 3. Depuy Corail Short Neck 135 degree Collared Femoral Stem, Size 11 4. Depuy Altrx Ceramic Femoral Head, Size 36+1.5mm Indications: I have seen Laurie in clinic for symptoms of hip arthritis, confirmed with radiographic findings. She has exhausted nonoperative methods and was having significant limitations in daily function and desired better function and less pain. I discussed the technical details of a hip replacement. I explained the risks of the procedure to include, but not limited to, bleeding, infection, pain, stiffness, fracture, damage to nerves and vessels, damage to muscles and t endons, loosening, instability, leg length inequality, need for repeat procedure, blood clot and cardiopulmonary demise. Despite these risks, Laurie elected to proceed. Findings: There was significant signs of arthritis throughout the hip with notable deformity of the femoral head with large osteophytes. Procedure Description: Laurie was greeted in the preoperative holding area where the correct side was identified and marked. The consent was reviewed with the patient and signed. The history and physical was updated. All questions were answered. SHe was taken back to the operating room. A spinal anesthestic was then administered. The feet were wrapped with cast padding and Coban and then placed into the boot liners and then into the boots. Care was taken to protect the skin and make sure the heels were fully down and the boots were stable. The patient was then positioned onto the HANA table. Both legs were held in a neutral position. SCDs were applied. The patient was then slid down onto a peroneal post. Prophylactic antibiotics in the form of Cefazolin were administ ered. 1g of Tranxemic Acid was given intravenously within 30 minutes of incision. The right leg was then prepped with Chloraprep and draped in a standard fashion. A second prep with Chloraprep was performed prior to placement of a shower-curtain type drape with Iodine impregnated skin protection. A timeout to confirm correct identity, side and site, procedure, allergies, anesthesia, and medical concerns was performed. An obliquely oriented incision was made starting lateral to the ASIS and running distal over the Tensor Fascia Sheila (TFL) muscle belly toward the fibular head, approximately 10cm. The skin and soft tissue was dissected sharply, through Charlene?s fascia, and to the fascia of the TFL. With the fascia and superior border of the IT band identified, the fascia was incised with a new knife just above any perforators from the IT band. The TFL muscle belly was bluntly dissected away from the fascia and moved laterally. The fat between TFL and rectus was identified to ensure the dissection was not within the TFL. Blunt dissection created space between abductors and the capsule and retractor was placed over the lateral femoral neck. The fibers of the rectus femoris tendon were identified and these were freed from the anterior capsule. A second cobra retractor was placed around the medial femoral neck. The TFL was further retracted laterally to show the deep fascia. Careful dissection through this layer identified three main crossing vessels of the lateral femoral circumflex. These were cauterized in multiple locations and then cut without any noticeable bleeding. The TFL was further released bluntly from the deep fascia to expose anterior hip capsule and fat The soft tissue orthopaedic retractor was then placed beneath the TFL and against sartorius and medial soft tissues to protect and retract the soft tissues. A T-capsulotomy was then performed starting at the superior lateral acetabulum and moving distally to the intertrochanteric ridge. These capsular flaps were tagged with a No. 1 Vicryl and elevated from within. The capsular flaps were released to the shoulder of the lateral neck and to the lesser trochanter to give excellent visualization of the proximal femur. A neck osteotomy was performed using an oscillating saw based on preoperative templates. This cut started in the shoulder and of the lateral neck and exited medially. The saw was at all times directed medially to avoid injury to the greater trochanter. Gross traction was applied to the leg and the osteotomy opened. The femoral head was removed with a corkscrew, making sure to protect the TFL on its exit. Traction was released after head removal. This was measured on the back table to determine the starting reamer size. Portions of the rectus obscuring visualization were minimally elevated off the superior acetabulum. An anterior retractor was placed over the anterior wall between capsule and labrum and attached to the Gripper retraction system. The femur was rotated to 90 degrees and medial capsule was fully released until the lesser trochanter was palpable and visible; the femur was returned to 30 degrees. A posterior retractor was placed similarly between capsule and labrum. This provided excellent visualization. The contents of the cotyloid fossa were removed with electrocautery and the labrum was removed with a knife. There was significant chondromalacia of the superior acetabulum. Acetabular reaming began with a 46mm reamer. This first reaming was directed anterior to posterior and medial to get down to the true floor. This was inspected and reamed until the true floor was reached. The anterior retractor was then released and entry and exit was provided by traction on the capsular flaps. I then reamed sequentially up to a 52mm reamer where good fit was obtained. The larger reamers were oriented based on anatomical reference of the anterior and lateral nova to ensure proper abduction and anteversion. Positioning and size was confirmed with the fluoroscopy. A 52mm Depuy [place] acetabular component was selected. The deep tissues were irrigated. The acetabular component was then impacted in a position of about 40-45 degrees of abduction and 15-20 degrees of anteversion, using the patient?s anatomy as the ultimate landmark. Fluoroscopy was used to confirm this. There was excellent survey associate of the acetabular component and the inserting handle was removed. The acetabular liner, Depuy [id number] polyethylene liner, was inserted and lined up with the tines of the acetabular component. There was no soft tissue interposition. The liner was then impacted into position and confirmed to be well-seated. A portion of the luis alfredo-articular cocktail was then injected around the acetabulum into the capsule and periosteum. This cocktail consisted of 123mg of Ropivacaine, 0.25mg of Epinephrine, 0.04mg of Clonidine, and 15mg of Ketorolac, diluted to 50cc. The leg was rotated to 120 degrees. Any remaining medial capsule was released until the lesser trochanter was easily palpable. A retractor was placed medially. The lateral capsule was further released into the shoulder to allow access to the greater trochanter. A Eckert retractor was placed over the greater trochanter which allowed the trochanter to flip in front of the capsule for excellent exposure. The leg was brought down into maximal extension and 20 degrees of adduction while ensuring there was no impingement on the acetabulum. Any remnant capsule within the trochanter was released. Piriformis and obturator externis were identified and protected. There was excellent access to the proximal femur. The lateral neck remnant was removed with a rongeur. A blunt canal probe was used to identify the canal and trajectory for later broaching. A box osteotome initiated the broach course. A small curved rasp and a curved curette were used to work laterally. Broaching then began with a size 8 Corail broach. This was inserted manually around the trochanter and into the canal before mallet blows. The broach was seated to a few millimeters below the cut level based on the neck cut and the preoperative template. Sequential b roaching was continued with the [employer] pneumatic broaching device until a tight fit was obtained with good rotational control of the femur. A trial standard 125 degree neck was inserted along with a +1.5 trial head. The leg was brought out of extension and adduction and then reduced with traction and internal rotation. The leg was stable anteriorly in a position of 30 degrees of extension and 90 degrees of external rotation. Fluoroscopy was used to ensure there was no fracture and the stem was seated well. Leg lengths were checked with an AP pelvis and pelvic reference points. SocialShield navigation system was used to confirm appropriate positioning and leg length and offset. This overcorrected the offset but was quite close on the leg length. Therefore, transition to a short neck, 135 degree, stem was made. Once content with the desired offset and leg lengths, the leg was brought back into extension, external rotation and adduction. The periosteum and surrounding tissue was injected with remaining portion of the luis alfredo-articular cocktail. The proximal femur was irrigated as well as the deep tissues. The Depuy Corail Short Neck, 135 degree, collared stem, size 11, was then manually inserted into the proximal femur making sure to control rotation. It was then malleted into position with light blows, giving breaks to allow bone expansion and decrease risk of fracture. The selected Depuy Altrx Ceramic Head, size 36+1.5mm, was then placed onto the clean and dry trunnion and secured with impaction onto the tapered fit. The leg was brought back out of extension and adduction and reduced with traction and internal rotation. Stability was confirmed with no shuck at 90 degrees of external rotation and 30 degrees of extension. No impingement through range of motion arc. Final x-ray images were obtained with fluoroscopy to confirm adequate positioning and no intraoperative fracture. The deep tissues were thoroughly irrigated with Surgiphor, betadine solution. This was allowed to sit in the wound for 3 minutes before being thoroughly irrigated out with normal saline. The capsule was then reapproximated with the previously placed sutures and the indirect head of the rectus was inspected and reapproximated with a #1 Vicryl. The TFL fascia was finally closed with a No. 2 Stratafix, barbed suture. Deep tissues were then reapproximated with 0 Vicryl and a running 2-0 Vicryl. The skin was closed with a running 4-0 Monocryl in a subcuticular fashion. This was reinforced with skin glue. A Mepilex silver dressing was applied. At the end of the case, all counts were correct. Laurie was transferred to the hospital bed without difficulty and suffering no apparent complication. She has a good prognosis. Physical therapy will start today and without restrictions, weight-bearing as tolerated. Aspirin 81mg BID will be used for DVT prophylaxis. Date of Procedure: 05/28/24
--- NOTE | 2024-05-28 13:04 | W.ANESPOSTOP ---
Postoperative Evaluation Date, Time and Location Date Performed: 05/28/24 Time Performed: 13:04 Patient Location: Day Surgery Unit Vital Signs Most Recent Imported Vital Signs: Most Recent Vital Signs Temp Pulse Resp BP Pulse Ox 36 C L 57 L 15 136/44 L 99 05/28/24 12:35 05/28/24 12:41 05/28/24 12:41 05/28/24 12:40 05/28/24 12:41 Pain Score Most Recent Pain Score: Most Recent Pain Score Pain Level 0 05/28/24 12:35 Assessment Mental Status: Awake (Alert & Oriented to Patient Baseline) Airway and Respiratory Function: Patent airway with normal (patient baseline) respiratory exam Cardiovascular Function: Hemodynamically Stable Hydration Status: Adequately Hydrated Nausea & Vomiting: No Nausea or Vomiting Pain: Pt. Denies Any Pain Peripheral Nerve Block: Patient did not receive a nerve block
--- NOTE | 2024-05-28 13:39 | W.PC.ACHO ---
Registration Status: Primary Language: Preferred Language: Medical / Surgical History (Last Reviewed 05/28/24 @ 08:09 by Divine Sheth) History of toe fracture Family history of ischemic heart disease (09/05/11) (Last Reviewed 05/28/24 @ 08:09 by Divine Sheth) S/P foot surgery, left (12/18/23) S/P bunionectomy (10/15/23) History of partial ray amputation of fifth toe of left foot (10/15/23) Most Recent Vital Signs Temperature 36.1 C L 05/28/24 13:15 Temperature Source Temporal Artery Scan 05/28/24 13:15 Pulse 78 05/28/24 13:15 Pulse Rhythm Irregular 05/28/24 08:08 Pulse 65 05/28/24 12:41 Respiratory Rate 16 05/28/24 13:15 Respiratory Depth Normal 05/28/24 08:08 Blood Pressure 148/70 H 05/28/24 13:15 Blood Pressure Mean 79 05/28/24 12:40 Pulse Oximetry 99 05/28/24 13:15 Respiratory End-tidal CO2 31 05/28/24 12:41 Oxygen Delivery Method Room Air 05/28/24 13:15 Oxygen Flow Rate 0 05/28/24 13:15 Pain Level 4 05/28/24 13:15 Allergies ranitidine Adverse Reaction (Intermediate, Verified 05/28/24 07:45) Stomach trouble 05/16 TRIAL Active Medications Generic Name Dose Route Start Last Admin Trade Name Freq PRN Reason Stop Dose Admin Acetaminophen 1,000 mg 05/28/24 06:00 05/28/24 08:18 Acetaminophen 500 Mg Tab PO 05/28/24 23:59 1,000 mg PREOP HUMA Administration Celecoxib 400 mg 05/28/24 06:00 05/28/24 08:18 Celecoxib 200 Mg Cap PO 05/28/24 23:59 400 mg PREOP HUMA Administration Ringer's Solution 1,000 mls @ 80 mls/hr 05/28/24 06:00 05/28/24 12:38 IV 05/28/24 23:59 80 mls/hr INFUSION HUMA Infusion Cefazolin Sodium/Dextrose 2 gm in 50 mls @ 100 mls/hr 05/28/24 07:30 05/28/24 11:02 Ancef Duplex IVPB 06/27/24 07:29 Infused PREOP HUMA Infusion Tranexamic Acid/Sodium Chloride 1,000 mg in 100 mls @ 600 mls/hr 05/28/24 07:30 05/28/24 10:53 IVPB 06/27/24 07:29 Infused PREOP HUMA Infusion IV IV Catheter Type [Left Forearm Peripheral IV ] IV Catheter Gauge [Left 20 Forearm] Diet Orders Category Date Time Status Diabetes Consistent CHO [DIET] Nutrition 05/28/24 Lunch Active Intake and Output - 24 Hour Total 05/11/24 09:56 thru 05/28/24 12:38 Intake Total 1000 Output Total 50 Balance 950 Weight 54.5 kg Intake: IV 1000 Output: Estimated Blood Loss 50 Other: Emesis Description None v v v v v v v v v Sending and/or Receiving Nurses: Please use comment section below to note any information pertinent to the patient hand-off not included above. Information / Comments: Right total hip, [facility] Hand-off Report Reviewed at time of transport Report received from:OR, RN
--- NOTE | 2024-05-28 15:45 | IN_ITS ---
PT Notes Visit Reasons: Right hip DJD Physical Therapy Inpatient Initial Evaluation Date: 05/28/2024 Referring Doctor: LUIS MANUEL Fisher PT Orders: PT CONSULT: S/P Ortho Surgery Precautions: WBAT on the R LE with AD. Hard of hearing. Patient Profile/Admitting Diagnosis: Laurie is an 33-year-old female with degenerative joint disease of the right hip status post right anterior total hip arthroplasty on postoperative day 0. PMHX: All Active Problems Chondrocalcinosis of right knee (Acute) DEPO MEDROL 02/09/24 Arthritis of right hip (Acute) POCUS 01/05/24 Osteoarthrosis of ankle and foot (Acute Unknown) L foot Non-pressure chronic ulcer of other part of left foot with necrosis of bone (Acute) 11/19 [facility] Podiatry note Opacity of lung on imaging study (Acute) Status post foot surgery (Acute) Osteomyelitis of left foot (Acute) Cellulitis (Acute) Ulcer of left foot with fat layer exposed (Acute) Bronchiectasis (Acute) Tear of skin of plantar aspect of left foot (Acute) Chronic ulcer of left foot (Acute) Gouty arthropathy with tophi (Acute) Gout (Chronic) 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) POCUS 10/06/23 History of diverticulitis (Acute) Hx: recurrent pneumonia (Acute) Wheeze (Acute) Iron deficiency anemia (Acute 04/07/05) esophagitis/excedrin EGD 2005, 2007 INDEFINITE RX PPI; HEALED 2008; COLON 2005; persists 09/16, RESPONDS TO FE; Hb 7.0 not on Fe 07/2014 Anemia (Chronic) Anemia of chronic disorder (Acute 09/04/10) LOW EPO LEVEL 08/2010; mild CKD eGFR 44 Screening for osteoporosis (Acute) Post-menopausal (Acute) Allergic rhinitis (Acute 09/05/11) AM RHINORRHEA, CLOTRIMETON Type 2 diabetes mellitus without complication, without long-term current use of insulin (Acute 11/25/17) Esophagitis (Acute 10/05/05) FE DEF, EGD POS 12/11, 01/11, NEG 05/16 BUT STILL CHRONIC GASTRITIS, H PYLORI NEG; EGD KARTHIK; HEALED 2008; REC INDEFINITE PPI; 2005; recur anemia; 2014, H Pylori ab neg; EGD 05/2015 Castillo's metaplasia, 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 RML LESION; CT 07/07/12 ? 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 Brother and [id number]-kv-lby live just close to patient and have been very good support. Modified independent with FWW indoors. Gets MOW. Equipment Owned/DME: FWW, Single point cane Subjective: Patient was agreeable to getting out of bed to walk. Complained of pain at 3- 4/10 which Nurse Owens was aware about. Denied headache, chest pain, and lightheadedness throughout session. Objective: General Observation: Resting in bed. Nurse Owens was finishing up her a ssessment with patient when PT came in. Iv access throughL UE. Mental Status: Alert and oriented as to person, place, time, and purpose. Able to pay attention, focus, and respond appropriately. Pain: As above Vital Signs: Closely monitored by nursing staff ROM: Right Lower Extremity: Hip flexion WFL. Hip abduction WFL. Knee flexion WFL. Ankle dorsiflexion WFL. Ankle plantarflexion WFL. Left Lower Extremity: Hip flexion WFL. Hip abduction WFL. Knee flexion WFL. Ankle dorsiflexion WFL. Ankle plantarflexion WFL. Strength: Right Lower Extremity: Hip flexors 4-/5. Hip abductors 4-/5. Knee flexors 4-/5. Knee extensors 4-/5. Ankle dorsiflexors 4-/5. Ankle plantarflexors 4-/5. Left Lower Extremity: Hip flexors 5/5. Hip abductors 5/5. Knee flexors 5/5. Knee extensors 5/5. Ankle dorsiflexors 4-/5. Ankle plantarflexors 4-/5. Bed Mobility/Transfers: Minimal cueing provided for use of B hands as needed for support, WB precaution, movement sequence, AD management, and posture to reduce fall risk and minimize pain report Supine to sit stand by assist with FWW Sit to stand contact guard assist with FWW Stand to sit contact guard assist with FWW Gait: 75 feet + 20 feet with WBAT onto R LE using front-wheeled walker with contact guard assist. No loss of balance. No shortness of breath. Denied headache, chest pain, and lightheadedness throughout session. Minimal verbal cues given for correct limb sequence, AD management, and posture to minimize fall risk and decrease pain report Stairs: Not assessed to day Balance: Static Sitting: Normal Dynamic Sitting: Normal Static Standing: Fair Dynamic Standing: Poor Special Tests: Mobility Limitations Standardized Measure [facility] AM-PAC 6 clicks Basic Mobility Inpatient Short Form: Raw Score: 18 CMS Score: 47% deficit Informed Consent/Education: Patient was instructed in purpose of PT consult and plan of care. Agreeable to proceed with established PT POC to achieve personal goals. Trained patient with correct performance of exercises below to maximize motor control, joint flexibility, soft tissue extensibility of the R hip musculature to facilitate return to independent functional mobility performance. Access Code: [email or web address] URL: [email or web address] Date: 05/28/2024 Prepared by: Kassie Rodriguez Exercises - Gluteal Sets - 1 x daily - 7 x weekly - 1 sets - 10 reps - 5 hold - Supine Heel Slide - 1 x daily - 7 x weekly - 1 sets - 10 reps - 5 hold - Supine Ankle Pumps - 1 x daily - 7 x weekly - 1 sets - 10 reps - 5 hold - Seated March - 1 x daily - 7 x weekly - 1 sets - 10 reps - 5 hold - Seated Long Arc Quad - 1 x daily - 7 x weekly - 1 sets - 10 reps - 5 hold Assessment: Patient requires the use of a front-wheeled walker for all mobility ADL per formance to maximize indpendence and reduce fall risk. Patient presents with clinical signs and symptoms consistent with current/admitting diagnoses that have resulted to mobility limitations, gait instability, generalized weakness, and overall ADL decline as demonstrated by the following impairment level findings: 1. Decreased strength to R hip major muscle groups 2. Impaired standing balance 3. Impaired activity tolerance Impairments are contributing to the following functional limitations: 1. Difficulty with ambulation without assistive device and physical assistance 2. Increased completion time for mobility ADL performance 3. Increased risk for falls 4. Difficulty with managing steps alone safely Patient is assessed as a 12922 moderate complexity based on the following: History: 84-year-old female with past medical history as indicated above Examination: Demonstrable impairment in strength, balance, and mobility level with underlying impairments and functional limitations as exhibited above as well as deficit score of 47% utilizing the [facility] Mobility Inpatient Short Form Presentation: Evolving Decision Makin moderate complexity Goals: Goals X1 week 1. Supine-Sit independent 2. Sit-Supine independent 3. Sit-Stand independent 4. Stand-Sit independent 5. Bed-Chair independent 6. Chair-Bed independent 7. Independent gait on level surface with use of least restrictive device for at least 300 feet without report of pain nor dyspnea 8. Independent stair negotiation while holding onto bilateral rails for at least 10 steps without report of pain nor dyspnea 9. Independent with home exercise program 10. Good static and dynamic standing balance/tolerance Plan of Care/Treatment Plan: Patient will highly benefit from skilled physical therapy services including functional mobility training, bed mobility/transfer training, gait and balance training, therapeutic exercises, therapeutic activity, caregiver/staff/family education and training 1x/day, 7 days/week x 1 week. Plan of care has been reviewed with the TECHNICAL ADVISOR providing the service under Physical Therapy direction. Initiate Physical Therapy intervention for strengthening, bed mobility, transfers, gait, stairs, balance training, use of assistive device. --Premedicate for pain. DISCHARGE RECOMMENDATIONS: [] Home with no services [] [] Home with services [] [] Home with outpatient PT [] [] SNF for continued rehabilitation [] [] Prison Care [] [] SNF versus LTC based on ability to participate and progress [] [X] Short-term SNF vs PT based on availability of caregivers and on patient's progresstowards goals TREATMENT CODE/TIME: 19243 x 20 minutes for 1 unit, 91468 x 23 minutes for 2 units (15:00-15:43). Thank you for the opportunity to participate in the care of this patient. Kassie Rodriguez PT, DPT, CLT [facility] [place], [place]
[2024-05-28] MEDS: ceFAZolin 1 GM/50 ML BAG IVPB (17:55)
[2024-05-28] MEDS: Aspirin E.C. 81 MG TABEC PO (19:35)
[2024-05-28] MEDS: Normal Saline Flush 10 ML SYR IV (19:35)
[2024-05-28] MEDS: Celecoxib 200 MG CAP PO (19:35)
[2024-05-29] MEDS: ceFAZolin 1 GM/50 ML BAG IVPB ×2 (01:39→09:39)
[2024-05-29] MEDS: HYDROmorphone 2 MG/ML SYR 0.5 MG IVP (02:19)
[2024-05-29] MEDS: Normal Saline Flush 10 ML SYR IV ×2 (02:19→09:40)
[2024-05-29] MEDS: Normal Saline Flush 10 ML SYR (02:41)
[2024-05-29 03:07] VITALS: BP 153/87; PULSE 89; RESP 18; TEMP 36.1; O2SAT 96
[2024-05-29 07:39] VITALS: BP 146/74; PULSE 68; RESP 16; TEMP 36.8; O2SAT 98
--- NOTE | 2024-05-29 08:54 | DSE_ITS ---
Date of service: 05/29/24 Time of Service: 10:20 DS: Diagnosis Discharge Diagnosis (1) Arthritis of right hip: Status: Acute Discharge Plan Disposition Patient Disposition: Home W/Home Health Services Condition: Good Discharge Details Reason For Visit: Right hip DJD Admit Date/Time: 05/28/24 07:21 Admit Provider: Pavan Dai Attending Provider: Pavan Dai Primary Care Provider: Lalitha Daniels Hospital Course Hospital Course: Patient was admitted to the medical/surgical floor following the procedure. The surgery was tolerated well without any notable medical, surgical, or anesthetic complications. Mobilization began postoperatively. She was voiding spontaneously. Vitals were stable. Physical therapy worked with the patient and was cleared for discharge home. No acute medical issues. Pain was controlled on oral regimen. Home Meds and New Rx's Prescriptions: New celecoxib 200 mg capsule 200 mg PO BID PRN (Reason: pain) Qty: 60 1RF aspirin 81 mg tablet,delayed release (DR/EC) 81 mg PO BID Qty: 60 0RF tramadol 50 mg tablet 50 mg PO Q4H PRNQty: 18 0RF acetaminophen 500 mg tablet 1,000 mg PO Q8H PRN (Reason: pain) Qty: 90 3RF Continued lisinopril-hydrochlorothiazide 20-12.5 mg tablet 1 tab PO DAILY Qty: 90 3RF Rx Instructions: TO CONTROL BP <130/80 ferrous gluconate [Ferate] 240 mg (27 mg iron) tablet 240 mg PO DAILY Qty: 180 3RF Aveeno Moisturizing 1 % cream 1 applic topical TID PRN Qty: 206 3RF allopurinol 100 mg tablet 100 mg PO DAILY Qty: 90 1RF ascorbic acid (vitamin C) [Vitamin C] 500 MG tablet 500 mg PO BID Qty: 200 Rx Instructions: take with iron tablets to enhance absorption albuterol sulfate 90 mcg/actuation HFA aerosol inhaler 2 puff inhalation QID PRN (Reason: shortness of breath or wheezing) Qty: 8.5 0RF Discontinued celecoxib [Celebrex] 100 mg capsule 100 mg PO DAILY Qty: 90 0RF acetaminophen 500 MG tablet 2 tab PO PRN PRN Discharge Instructions Additional Instructions: Total Hip Discharge Instructions Activity: The most important activity is to walk. You should try to take short walks a few times a day. You have no restrictions on movement or positioning, but do not try to force what you do. You will find some stiffness and weakness with hip flexion (lifting your knee). Do not try to strengthen this too early, continue to practice walking and stairs and this will come. - Outpatient physical therapy can be helpful to help return you to a normal gait and improve your flexibility and strength. This can start around 2 weeks. For some patients, it?s not necessary. Usually this is determined at the time of discharge or at the first post-operative visit. - You should wear the SORAYA hose on both legs for 2 weeks. Dressing: Keep the surgical dressing in place for at least one week. After the first week it may be removed and replace with light gauze and tape or nothing. It may get wet after 3 days but avoid soaking the dressing. If it gets wet, just lightly pat dry. It is important to always keep some gauze between skin folds, especially when you are sitting. Spend some time with the wound exposed when you are lying flat as the incision does wrinkle onto itself. Medications: - You should take Tylenol and an anti-inflammatory Celebrex as your primary pain control medications. If the Celebrex is too expensive or not covered, please call the office for another alternative (Advil/Ibuprofen or Naproxen/Aleve). - You have been prescribed a stronger pain medication Tramadol for breakthrough pain, take as needed as prescribed. - You have also been prescribed a stomach acid reduction agent Pantoprozole to help reduce stomach acid and reflux. - You will be taking Aspirin 81mg twice a day for DVT prevention unless instructed otherwise. - If you have constipation you should take Colace or Miralax (both [id number]). It takes most people 3-4 days to have a bowel movement. Follow-up: 2 weeks If you have any acute concerns or questions, please do not hesitate to contact the office at [phone]. You may contact Dr. Dai with any questions after hours through the hospital at [phone] or on his cell phone at [phone]. 1. Encounter Date and Reason I certify that Laurie Hall was seen by Pavan Dai MD on 05/29/24 and that I had a [id number] encounter with this patient that meets the physician face to face encounter requirements. 2. Clinical Findings Supporting Skilled Need and Homebound Status I certify that home health services are medically necessary, include either intermittent retirement and/or physical/speech therapy, and that this patient is homebound in that absences from the home require considerable and taxing effort and are infrequent or of short duration, or are attributable to the need to receive medical care. [X] (a) Attached documentation from encounter provides clinical findings supporting skilled need and homebound status (including what assistance patient requires to leave the home). The encounter with the patient was in whole, or in part, for the following medical condition, which is the primary reason for home health care: Right hip DJD Prison: Laurie would benefit from home health physical and occupational therapy as she recovers from a right hip replacement. She has no positioning restrictions and is weight bearing as tolerated with assistive devices. Physical Therapy: Speech Therapy: Homebound: Laurie is homebound, unable to leave her home unassisted due to weakness and gait dysfunction. 3. Certification and Authentication I certify that I composed the above information based on my clinical judgement relating to this patient's medical condition and, if applicable, clinical findings communicated to me by the NPP or inpatient physician who performed the Home Health Referral. All further orders will be obtained through Dr. Dai Referrals: Pavan Dai MD [ [facility] STAFF PHYSICIAN] - Activity:: Activity as Tolerated Equipment/Supplies:: Walker Diet:: As Tolerated Discharge Orders Discharge Orders: Discharge Order (Routine); Ordered 05/29/24 Ordered By: Pavan Dai DS: Summary Time Spent with Patient providing and/or coordinating discharge services: Less than 30 minutes Status at Discharge Functional status at discharge: uses cane/walker Overall status at discharge: patient is progressing back to baseline Mental Status: mental status grossly normal Speech and Movement: speech and movement normal Mood: congruent mood Affect: normal affect Quality:SDOH Health Related Social Needs: No Data to Display Exam Narrative Exam Narrative: Sitting up in the chair. NAD. AAOx3. Dressing c/d/i. No pain with hip IR/ER. SILT Fem/SP/DP/PT. Psych Mental Status: mental status grossly normal Speech and Movement: speech and movement normal Mood: congruent mood Affect: normal affect [facility] All Active Problems Chondrocalcinosis of right knee (Acute) DEPO MEDROL 02/09/24 Arthritis of right hip (Acute) POCUS 01/05/24 Osteoarthrosis of ankle and foot (Acute Unknown) L foot Non-pressure chronic ulcer of other part of left foot with necrosis of bone (Acute) 11/19 [facility] Podiatry note Opacity of lung on imaging study (Acute) Status post foot surgery (Acute) Osteomyelitis of left foot (Acute) Cellulitis (Acute) Ulcer of left foot with fat layer exposed (Acute) Bronchiectasis (Acute) Tear of skin of plantar aspect of left foot (Acute) Chronic ulcer of left foot (Acute) Gouty arthropathy with tophi (Acute) Gout (Chronic) 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) POCUS 10/06/23 History of diverticulitis (Acute) Hx: recurrent pneumonia (Acute) Wheeze (Acute) Iron deficiency anemia (Acute 04/07/05) esophagitis/excedrin EGD 2005, 2006 INDEFINITE RX PPI; HEALED 2008; COLON 2005; persists 09/16, RESPONDS TO FE; Hb 7.0 not on Fe 07/2014 Anemia (Chronic) Anemia of chronic disorder (Acute 09/04/10) LOW EPO LEVEL 08/2010; mild CKD eGFR 44 Screening for osteoporosis (Acute) Post-menopausal (Acute) Allergic rhinitis (Acute 09/05/11) AM RHINORRHEA, CLOTRIMETON Type 2 diabetes mellitus without complication, without long-term current use of insulin (Acute 11/25/17) Esophagitis (Acute 10/05/05) FE DEF, EGD POS 12/11, 01/11, NEG 05/16 BUT STILL CHRONIC GASTRITIS, H PYLORI NEG; EGD KARTHIK; HEALED 2008; REC INDEFINITE PPI; 2005; recur anemia; 07/2014, H Pylori ab neg; EGD 05/2015 Castillo's metaplasia, 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 RML LESION; CT 07/07/12 ? 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 (10/15/23) Dr Multani Family History Sister , age 70, non-hodgkins lymphoma Lymphoma Sister Hyperlipidemia Brother Heart disease Brother Heart disease Brother Heart disease cardiac stents Social History Smoking/Tobacco Use Status: Never Smoking risk assessment performed?: Yes Alcohol Intake: current Alcohol Intake frequency: holidays/special occasions only Alcohol type: beer and other Drug use: Never Substance use type: does not use Details: alcohol: 02/04/24 Household members: none Housing: house Number of Children: 0 Communication Needs: Hard of Hearing and Corrective Lenses current occupation: retired What is your relationship status?: never How often do you talk on the phone with friends or family?: three or more times per week How often do you get together with friends or relatives?: three or more times per week Panel score (0-1 are the most socially isolated patients): 1 What type of physical activity do you participate in: none Seatbelt use: always Drive intox or ride w/intox medical driver: No Working smoke detector in home: Yes Fire extinguisher in home: No Carbon monox detector in home: No Do you feel safe at home: Yes Do you feel safe in your relationship?: Yes Additional Social history: utap Time Spent with Patient Time Spent with Patient: <45 minutes Time was spent: preparing to see the patient(eg.review tests)
[2024-05-29] MEDS: hydroCHLOROthiazide 12.5 MG TAB PO (09:40)
[2024-05-29] MEDS: Aspirin E.C. 81 MG TABEC PO (09:40)
[2024-05-29] MEDS: Lisinopril 20 MG TAB PO (09:40)
[2024-05-29] MEDS: Allopurinol 100 MG TAB PO (09:40)
[2024-05-29] MEDS: Celecoxib 200 MG CAP PO (09:41)
[2024-05-29] MEDS: Acetaminophen 500 MG TAB 1000 MG PO (09:41)
[2024-05-29] MEDS: Pantoprazole 40 MG TABCR PO (09:41)
[2024-05-29] MEDS: Dexamethasone 4 MG TAB PO (10:12)
--- NOTE | 2024-05-29 11:52 | PDOC.CMIN ---
Date of service: 05/29/24 Time of Service: 11:52 Care Management Initial Assmt Initial Assessment Reason for Hospitalization: right total hip arthroplasty Functional Status/Living Situation Town of Residence: [facility] Advance Directives Advance Directives: Do you have an Advance Directive: N 08/19/12 16:[address] File [address] [facility]: N 06/30/12 11:20 Date Asked 05/28/24 05/18/24 13:05 AD Date Reviewed COLST On File at [facility] COLST Date Scanned Code Status Resuscitation Status Full Code Insurance Coverage/Financial Issues Insurance: Medicare /[facility] Care Team Visit Care Team Role Provider Type Lalitha Daniels NP Primary Care Provider NURSE PRACTITIONER InPatient Tesfaye Bond Other Providers OTHER Pavan Dai MD Admit Provider [facility] STAFF PHYSICIAN Attending Provider Discharge Potential Discharge Needs: Surgical F/U Appt Anticipated Barriers to Discharge: None Identified Patient/Family Education Needs: Review discharge instructions, discuss Ask Me Three Transportation: Private vehicle Plan: Anticipate Laurie will be discharged home with no new services when medically cleared. She will follow up with her surgeon and plan of care and transport with family. Social Determinants of Health Screening Social Determinants of Health last assessed: 05/29/24 Will the Patient Participate in the Screening?: Yes Do you worry about having a steady place to live?: yes Problems where you live: no known problems In the past 12 months, have you had to go without electric, gas, oil or water in your home?: no Have you or anyone in your house had to go without enough food to eat?: no Has lack of transportation kept you from medical appointments or from doing things needed for daily living?: no Has anyone in your life made you feel unsafe or unsupported?: no How hard is it for you to pay for the very basics like food, housing, medical care, and heating? Would you say it is:: Not hard at all Do you want help finding or keeping work or a job?: I do not need or want help If for any reason you need help with day-to-day activities such as bathing, preparing meals, shopping, managing finances, etc., do you get the help you need?: I get all the help I need How often do you feel lonely or isolated from those around you?: Never Do you speak a language other than Korean at home?: Yes Does the patient want assistance with any of the above?: No Social Determinants of Health Comments([facility] Details): Brother and sister in law stop by daily to check in Health Related Social Needs Health related social needs: housing instability, housed, with risk of homelessness (Z59.811) and education (Z55.6) [facility] All Active Problems Chondrocalcinosis of right knee (Acute) DEPO MEDROL 02/09/24 Arthritis of right hip (Acute) POCUS 01/05/24 Osteoarthrosis of ankle and foot (Acute Unknown) L foot Non-pressure chronic ulcer of other part of left foot with necrosis of bone (Acute) 11/19 [facility] Podiatry note Opacity of lung on imaging study (Acute) Status post foot surgery (Acute) Osteomyelitis of left foot (Acute) Cellulitis (Acute) Ulcer of left foot with fat layer exposed (Acute) Bronchiectasis (Acute) Tear of skin of plantar aspect of left foot (Acute) Chronic ulcer of left foot (Acute) Gouty arthropathy with tophi (Acute) Gout (Chronic) 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) POCUS 10/06/23 History of diverticulitis (Acute) Hx: recurrent pneumonia (Acute) Wheeze (Acute) Iron deficiency anemia (Acute 04/07/05) esophagitis/excedrin EGD 2005, 2006 INDEFINITE RX PPI; HEALED 2008; COLON 2005; persists 09/16, RESPONDS TO FE; Hb 7.0 not on Fe 07/2014 Anemia (Chronic) Anemia of chronic disorder (Acute 09/04/10) LOW EPO LEVEL 08/2010; mild CKD eGFR 44 Screening for osteoporosis (Acute) Post-menopausal (Acute) Allergic rhinitis (Acute 09/05/11) AM RHINORRHEA, CLOTRIMETON Type 2 diabetes mellitus without complication, without long-term current use of insulin (Acute 11/25/17) Esophagitis (Acute 10/05/05) FE DEF, EGD POS 12/11, 01/11, NEG 05/16 BUT STILL CHRONIC GASTRITIS, H PYLORI NEG; EGD KARTHIK; HEALED 2008; REC INDEFINITE PPI; 2005; recur anemia; 07/2014, H Pylori ab neg; EGD 05/2015 Castillo's metaplasia, 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 RML LESION; CT 07/07/12 ? 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 (10/15/23) Dr Multani Family History Sister , age 70, non-hodgkins lymphoma Lymphoma Sister Hyperlipidemia Brother Heart disease Brother Heart disease Brother Heart disease cardiac stents Social History Smoking/Tobacco Use Status: Never Smoking risk assessment performed?: Yes Alcohol Intake: current Alcohol Intake frequency: holidays/special occasions only Alcohol type: beer and other Drug use: Never Substance use type: does not use Details: alcohol: 02/04/24 Household members: none Housing: house Number of Children: 0 Communication Needs: Hard of Hearing and Corrective Lenses current occupation: retired What is your relationship status?: never How often do you talk on the phone with friends or family?: three or more times per week How often do you get together with friends or relatives?: three or more times per week Panel score (0-1 are the most socially isolated patients): 1 What type of physical activity do you participate in: none Seatbelt use: always Drive intox or ride w/intox form setter/driver: No Working smoke detector in home: Yes Fire extinguisher in home: No Carbon monox detector in home: No Do you feel safe at home: Yes Do you feel safe in your relationship?: Yes Additional Social history: utap
--- NOTE | 2024-05-29 14:20 | CMPROGNOTE_ITS ---
Date of service: 05/29/24 Time of Service: 14:20 Care Management Progress Note Progress Note Text Progress Note Text: Laurie was admitted on 05/28/24 for a right JONATHAN. The surgery was without complications and Laurie did well post-opoeratively. She will be discharged home with new home health services for PT and OT. She will follow up with her surgeon Dr. Dai and will transport with family. Laurie was discharged home before CM was able to meet with her. Discharge Potential Discharge Needs: Surgical F/U Appt Anticipated Barriers to Discharge: None Identified Patient/Family Education Needs: Review discharge instructions, discuss Ask Me Three Transportation: Private vehicle Plan: o Social Determinants of Health Screening Social Determinants of Health last assessed: 05/29/24 Will the Patient Participate in the Screening?: Yes Do you worry about having a steady place to live?: no Problems where you live: no known problems In the past 12 months, have you had to go without electric, gas, oil or water in your home?: no Have you or anyone in your house had to go without enough food to eat?: no Has lack of transportation kept you from medical appointments or from doing things needed for daily living?: no Has anyone in your life made you feel unsafe or unsupported?: no How hard is it for you to pay for the very basics like food, housing, medical care, and heating? Would you say it is:: Not hard at all Do you want help finding or keeping work or a job?: I do not need or want help If for any reason you need help with day-to-day activities such as bathing, preparing meals, shopping, managing finances, etc., do you get the help you need?: I get all the help I need How often do you feel lonely or isolated from those around you?: Never Do you speak a language other than Japanese at home?: Yes Does the patient want assistance with any of the above?: No Social Determinants of Health Comments([facility] Details): Brother and sister in law stop by daily to check in Health Related Social Needs Health related social needs: education (Z55.6)
== END 2024-05-29 11:55 | disposition home health service (06) ==
LOC: SUR 07:27 → MS 13:07
PROVIDERS: Admitting Provider Student in an Organized Health Care Education/Training Program; PCP Nurse Practitioner; Visit Provider Student in an Organized Health Care Education/Training Program
PROC: (CPT 27130; principal; 2024-05-28 10:00)
DX: M16.11 Unilateral primary osteoarthritis, right hip (principal); E11.22 Type 2 diabetes mellitus with diabetic chronic kidney disease; I12.9 Hypertensive chronic kidney disease with stage 1 through stage 4 chronic kidney disease, or unspecified chronic kidney disease; N18.30 Chronic kidney disease, stage 3 unspecified; D50.9 Iron deficiency anemia, unspecified
CPT/HCPCS: 27130; 20985; 96365; 96366; 96375; 97162; 97530; 73501; C1776; G0378; J0690; J1100; J1171; J1815; J2003; J2371; J2405; J2704; J8540

== ENCOUNTER → 2024-06-08 10:32 | Outpatient (BNVA) | payer MEDICARE, BC, SELFPAY | PROVIDERS: PCP Nurse Practitioner; Referring Provider Nurse Practitioner; Visit Provider Physician Assistant Surgical | DX: R91.8 Other nonspecific abnormal finding of lung field (principal); R91.1 Solitary pulmonary nodule; J47.9 Bronchiectasis, uncomplicated | CPT/HCPCS: 99214 ==

== ENCOUNTER 2024-06-10 15:58 | Outpatient (CLI) | payer MEDICARE, BC, SELFPAY ==
--- NOTE | 2024-06-10 11:00 | DI.RAD_ITS ---
Exam(s) XR HIP RT COMPLETE AP PELVIS EXAM: XR HIP RT COMPLETE AP PELVIS INDICATION: 1ST POST OP R JONATHAN. COMPARISON: CR XR PELVIS PREOP ORTHO from 05/10/2024 XA XR HIP RT IN OR from 05/28/2024 TECHNIQUE: 2D digital imaging was performed. Two views. FINDINGS: Stable alignment of right hip prosthesis. No abnormal surrounding bony lucencies. Moderate to severe degenerative changes are noted in the left hip. DATA REPOSITORY: RADIATION DOSE DELIVERED:
== END 2024-06-10 15:59 | disposition home or self-care (01) ==
LOC: DIORS 15:59
PROVIDERS: PCP Nurse Practitioner; Referring Provider Nurse Practitioner; Visit Provider Physician Assistant
DX: Z96.641 Presence of right artificial hip joint (principal); Z47.1 Aftercare following joint replacement surgery
CPT/HCPCS: 99024; 73502

== ENCOUNTER 2024-07-05 01:12 | Outpatient (CLI) | payer MEDICARE, BC, SELFPAY ==
--- NOTE | 2024-07-05 | DI.RAD_ITS ---
Exam(s) XR FOOT LT COMPLETE EXAM: XR FOOT LT COMPLETE CLINICAL HISTORY: Cellulitis of lt lower limb, L03.116; non-pressure chronic ulcer of other. TECHNIQUE: 2D digital imaging was performed of the left foot. Three images were obtained. AP, obli que and lateral views were obtained. COMPARISON: CR XR FOOT LT COMPLETE from 10/15/2023 FINDINGS: BONES: No acute fracture is present. Since the prior examination the patient has undergone a resectio n of the 2nd toe to the level of the metatarsophalangeal joint. There is also been further resection of the 5th metatarsal. Postsurgical changes are seen at the head of the 1st metatarsal bone. There do appear to be some destructive changes seen at the medial aspect of the terminal tuft of the 3rd t oe. There is soft tissue swelling of the 3rd toe. No soft tissue gas is appreciated. No destructiv e changes are seen in the remnant of the 5th metatarsal bone. JOINTS: There is now overlapping of the 1st and 3rd toes. There is arthrosis seen at the 1st MTP dinora nt and the interphalangeal joints of the 3rd and 4th toes. SOFT TISSUE: Vascular calcifications are seen. Dystrophic calcifications are seen in the soft tissue s of the plantar surface of the foot. IMPRESSION: Destructive changes seen at the medial aspect of the terminal tuft of the 3rd toe. Osteomyelitis estrella uld be considered. There is soft tissue swelling present of the 3rd toe. No soft tissue gas is seen . DATA REPOSITORY: RADIATION DOSE DELIVERED:
== END 2024-07-05 01:32 ==
LOC: DI 01:12
PROVIDERS: PCP Nurse Practitioner; Visit Provider Podiatrist
DX: L03.116 Cellulitis of left lower limb (principal)
CPT/HCPCS: 73630

== ENCOUNTER → 2024-07-08 11:02 | Outpatient (BNVA) | payer MEDICARE, BC, SELFPAY | PROVIDERS: PCP Nurse Practitioner; Referring Provider Nurse Practitioner; Visit Provider Physician Assistant | DX: Z47.1 Aftercare following joint replacement surgery (principal); Z96.641 Presence of right artificial hip joint | CPT/HCPCS: 99024 ==

== ENCOUNTER → 2024-08-20 10:55 | Outpatient (BNVA) | payer MEDICARE, BC, SELFPAY | PROVIDERS: PCP Nurse Practitioner; Referring Provider Nurse Practitioner; Visit Provider Physician Assistant | DX: M70.61 Trochanteric bursitis, right hip (principal); Z96.641 Presence of right artificial hip joint; Z47.1 Aftercare following joint replacement surgery | CPT/HCPCS: 99024 ==

== ENCOUNTER 2024-09-21 01:52 | Outpatient (CLI) | payer MEDICARE, BC, SELFPAY ==
--- NOTE | 2024-09-21 10:25 | DI.CT_ITS ---
Exam(s) CT CHEST WO EXAM: CT CHEST WO CLINICAL HISTORY: Abnl chest CT, R93.89, tree-in-bud opacities with RML cavity. TECHNIQUE: Imaging protocol: Axial computed tomography images were obtained and coronal and sagittal reformatted images were created and reviewed. Lung Computer Aided Detection (CAD) was utilized. COMPARISON: CT CT CHEST WO from 05/24/2024 FINDINGS: Tracheobronchial tree: Patent where visualized. There are bronchiectatic changes again seen, the findings are most marked in the left upper and left lower lobes. Pulmonary parenchyma: The cavitary lesion in the posterolateral aspect of the right upper lobe patient's slight interval increase in size compared to the prior examination measuring 2.7 x 1.8 cm. This compares to 2.4 x 1.5 cm on the prior examination. There is a new cavitary lesion just superior to that which measures 1.0 cm (series 2, image 46). There is also new cavitary small lesion in the anterior aspect of the left upper lobe measuring 0.8 cm (series 2, image 53). Otherwise the opacities in the lungs are unchanged compared to the examination from 05/24/2024. Mediastinum and Jing: No dominant adenopathy or fluid collection. The esophagus is unremarkable.There is a large paraesophageal hernia again seen. Thyroid gland: Unremarkable. Pleura: No effusion or pneumothorax. Heart: Mild cardiomegaly. Three vessel coronary artery calcification is present. No pericardial effusion. Aorta: Thoracic aorta non-dilated. Atherosclerotic calcification is present. Upper abdomen: Hepatic and renal cysts are noted. No follow-up is recommended. Lymph nodes: Within normal limits. Soft tissues: Unremarkable. Bones:Within normal limits for the patient's age. IMPRESSION: 1. Stable appearance of the pulmonary opacities since 05/24/2024 except for the development of 2 cavitary lesions in the left upper lobe and slight interval increase in size of the pre-existing left upper lobe cavitation. 2. Stable large paraesophageal hernia. RADIATION DOSE DELIVERED: 120.02mGy.cm Total DLP 120.02mGy.cm Total DLP DATA REPOSITORY: All CT scans at this facility are submitted to the National Radiology Data Registry (NRDR) Dose Index Registry (DIR) with the [employer] (ACR). RADIATION OPTIMIZATION: All CT scans at this facility use at least one of these dose optimization techniques: automated exposure control; mA and/or kV adjustment per patient size (includes targeted exams where dose is matched to clinical indication); or iterative reconstruction.
== END 2024-09-21 02:12 ==
PROVIDERS: PCP Family Medicine; Visit Provider Internal Medicine Critical Care Medicine
DX: R93.89 Abnormal findings on diagnostic imaging of other specified body structures (principal)
CPT/HCPCS: 71250

== ENCOUNTER → 2024-09-22 10:59 | Outpatient (BNVA) | payer MEDICARE, BC, SELFPAY | PROVIDERS: PCP Family Medicine; Referring Provider Nurse Practitioner; Visit Provider Physician Assistant Surgical | DX: R91.8 Other nonspecific abnormal finding of lung field (principal); R91.1 Solitary pulmonary nodule; J47.9 Bronchiectasis, uncomplicated | CPT/HCPCS: 99214; 94060; 94667 ==

== ENCOUNTER → 2024-10-04 10:57 | Outpatient (BNVA) | payer MEDICARE, BC, SELFPAY | PROVIDERS: PCP Nurse Practitioner; Referring Provider Nurse Practitioner; Visit Provider Student in an Organized Health Care Education/Training Program | DX: Z47.1 Aftercare following joint replacement surgery (principal); Z96.641 Presence of right artificial hip joint | CPT/HCPCS: 99213 ==

== ENCOUNTER → 2024-10-26 09:46 | Outpatient (BNVA) | payer MEDICARE, BC, SELFPAY | PROVIDERS: PCP Nurse Practitioner; Referring Provider Family Medicine; Visit Provider Internal Medicine Pulmonary Disease | DX: J47.9 Bronchiectasis, uncomplicated (principal); J98.4 Other disorders of lung; Z23 Encounter for immunization | CPT/HCPCS: 99215; 90471; 36415; 90684 ==

== ENCOUNTER 2024-10-26 13:13 | Outpatient (REF) | payer MEDICARE, BC, SELFPAY ==
[2024-10-28 08:40] LABS: Fungitell Qualitative Positive (Negative); Fungitell Quantitative Value 140 pg/mL (<60 pg/mL)
== END 2024-10-26 13:14 | disposition home or self-care (01) ==
LOC: LBN 13:13
PROVIDERS: PCP Nurse Practitioner; Visit Provider Internal Medicine Pulmonary Disease
DX: J47.9 Bronchiectasis, uncomplicated (principal); J98.4 Other disorders of lung
CPT/HCPCS: 87305; 87449

== ENCOUNTER → 2024-11-29 08:50 | Outpatient (BNVA) | payer MEDICARE, BC, SELFPAY | PROVIDERS: PCP Nurse Practitioner; Referring Provider Nurse Practitioner; Visit Provider Internal Medicine Pulmonary Disease | DX: J98.4 Other disorders of lung (principal); J47.9 Bronchiectasis, uncomplicated; R91.1 Solitary pulmonary nodule | CPT/HCPCS: 99214 ==

== ENCOUNTER 2025-02-07 03:39 | Outpatient (CLI) | payer MEDICARE, BC, SELFPAY ==
[2025-02-07 08:22] LABS: Abs Immature Grans 0.02 10^3/uL (0.0-0.06); HCT 33.0 % (36.0-46.0); HGB 10.3 g/dL (11.2-15.7); Immature Grans % 0.3 %; MCH 28.5 pg (27.0-33.0); MCHC 31.2 % (32.0-36.0); MCV 91 fL (80-95); MPV 9.4 fL (8.0-11.0); Platelet Count 617 10^3/uL (130-400); RBC 3.61 10^6/uL (3.93-5.22); RDW 12.6 % (11.7-14.6); RDW-SD 41.6 fL; WBC 7.26 10^3/uL (4.4-10.8)
[2025-02-07 08:37] LABS: Glucose Negative (Negative)
[2025-02-07 09:08] LABS: ALT 15 U/L (14-59); AST 19 U/L (15-37); Albumin 3.3 g/dL (3.4-5.0); Alkaline Phosphatase 96 U/L (46-116); Anion Gap 10.2 mmol/L (3-11); BUN 37 mg/dL (7-18); Bilirubin, Total 0.3 mg/dL (0.2-1.0); CO2 26.8 mmol/L (21.0-32.0); Calcium 10.2 mg/dL (8.5-10.1); Chloride 101 mmol/L (98-107); Cholesterol 183 mg/dL (<200); Glucose 116 mg/dL (74-106); HDL Cholesterol 63 mg/dL (>or=50); Potassium 4.2 mmol/L (3.5-5.1); Sodium 138 mmol/L (136-145); TSH 4.29 uIU/mL (0.36-3.74); Total Protein 7.6 g/dL (6.4-8.2)
[2025-02-07 09:34] LABS: Hemoglobin A1C 6.4 % (<5.7)
[2025-02-07 10:06] LABS: C & S Indicated? No; RBC 0-2 HPF (0-2)
== END 2025-02-07 03:40 | disposition home or self-care (01) ==
LOC: LBO 03:39
PROVIDERS: PCP Nurse Practitioner; Referring Provider Family Medicine; Visit Provider Family Medicine
DX: E78.5 Hyperlipidemia, unspecified (principal); Z13.9 Encounter for screening, unspecified; R53.83 Other fatigue; N18.32 Chronic kidney disease, stage 3b; D64.9 Anemia, unspecified; E11.9 Type 2 diabetes mellitus without complications
CPT/HCPCS: 36415; 80053; 80061; 81003; 81015; 83036; 84443; 85025

== ENCOUNTER → 2025-03-01 10:36 | Outpatient (BNVA) | payer MEDICARE, BC, SELFPAY | PROVIDERS: Referring Provider Nurse Practitioner; Visit Provider Physician Assistant Surgical | DX: J47.9 Bronchiectasis, uncomplicated (principal); J98.4 Other disorders of lung; R91.1 Solitary pulmonary nodule | CPT/HCPCS: 99214 ==

== ENCOUNTER → 2025-03-23 00:05 | Outpatient (CLI) | payer MEDICARE, BC, SELFPAY ==
--- NOTE | 2025-03-23 06:45 | DI.CT_ITS ---
Exam(s) CT CHEST WO EXAM: CT CHEST WO CLINICAL HISTORY: follow up cavitating lesion,BRONCHIECTASIS,J98.4,J47.9 TECHNIQUE: Imaging Protocol: Axial computed tomography images with coronal and sagittal reformatted images were created and reviewed. Computer aided detection (CAD) was utilized. CONTRAST MATERIAL: Noncontrast. COMPARISON: CR XR CHEST 2V PA LATERAL from 10/14/[address] CHEST WO from 09/21/2024 FINDINGS: Pulmonary parenchyma: Previously noted cavitary lesion in the posterior left upper lobe has increased in size, 3.5 cm in diameter, compared to 2.4 x 1.5. There is again adjacent bronchiectasis with wall thickening on which appears to communicate with the cavitary lesion. Bronchiectasis and wall thickening and adjacent opacities are again noted in the anterior inferior left upper lobe which shows interval worsening. Mild bronchiectasis wall thickening also present in the left lower lobe, unchanged. Mild right lower lobe bronchiectasis appears unchanged. Tracheobronchial tree: No bronchiectasis or mucous plugging. Mediastinum and Jing: No dominant adenopathy or fluid collection. Large paraesophageal hernia again noted. Pleura: No effusion. No pneumothorax. Heart: The heart is not dilated. Moderate coronary artery calcifications are seen. Aorta: Thoracic aorta non-dilated. Mild atherosclerotic changes. Pulmonary arteries: Mildly prominent. Upper abdomen: No acute findings. Bones: Degenerative changes in the spine. Soft tissues: Unremarkable. IMPRESSION: Interval increase in size of cavitary lesion in the left upper lobe which appears to communicate with an ectatic bronchus. Worsening of opacities in the anterior medial left upper lobe. RADIATION DOSE DELIVERED: 178.14mGy.cm Total DLP DATA REPOSITORY: All CT scans at this facility are submitted to the National Radiology Data Registry (NRDR) Dose Index Registry (DIR) with the [employer] (ACR). RADIATION OPTIMIZATION: All CT scans at this facility use at least one of these dose optimization techniques: automated exposure control; mA and/or kV adjustment per patient size (includes targeted exams where dose is matched to clinical indication); or iterative reconstruction.
== END ==
LOC: DI 00:05
PROVIDERS: Visit Provider Physician Assistant Surgical
DX: J98.4 Other disorders of lung (principal); J47.9 Bronchiectasis, uncomplicated
CPT/HCPCS: 71250